=== PATIENT | female | born 1925 | race Caucasian/White ===

== ENCOUNTER 2016-07-09 10:59 | Emergency (ER) | payer OTHER ==
--- NOTE | 2016-07-09 11:16 | PDOC ---
*Physical Exam - Physical Exam Comments: 07/09/16 11:16 MIDLEVEL NOTE Pt seen by Midlevel Provider under my direct supervision. Pt interviewed and examined. Ancillary studies reviewed. I agree with plan as outlined by Midlevel Provider. 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 Patient has no abdominal tenderness Case discussed with Dr. Branch of results and states will also notify Dr. Shultz *DC/Admit/Observation/Transfer Diagnosis at time of Disposition: Fall Qualifiers: Encounter type: initial encounter Qualified Code(s): W19.XXXA - Unspecified fall, initial encounter - Discharge Dispostion Disposition: HOME Condition at time of disposition: Good - Referrals Referrals: Corby Shultz MD [Primary Care Provider] - - Patient Instructions Printed Discharge Instructions: How to Prevent Falls Additional Instructions: X-rays were negative for acute findings including fractures but on the CT there is mention of thickened wall mass in the sigmoid region needs follow-up.
[2016-07-09 11:23] VITALS: TEMP 97; BMI 19.5
--- NOTE | 2016-07-09 12:38 | PDOC ---
History of Present Illness - General Chief Complaint: Injury Stated Complaint: R/O HIP FRACTURE Time Seen by Provider: 07/09/16 11:08 History Source: Patient, [facility] Records Exam Limitations: No Limitations - History of Present Illness Initial Comments: 07/09/16 11:30 89-year-old female presents to the ED for evaluation of possible right hip fracture. Patient states yesterday was walking when she had tripped causing her to land on her left side. Patient had bilateral hip x-rays done which could not exclude of right hip fracture and recommended either a CT or additional imaging. Patient has no complaints of pain except to her left ankle and has been ambulatory since. Patient is currently on Lovenox. Occurred: reports: yesterday Severity: reports: mild Pain Location: reports: lower extremity Method of Injury: Yes: fall Modifying Factors: improves with: None Loss of Consciousness: no loss of consciousness Associated Symptoms (Fall): denies symptoms Past History - Past Medical History Allergies/Adverse Reactions: Allergies Allergy/AdvReac Type Severity Reaction Status Date / Time aspirin Allergy Verified 07/09/16 11:23 Home Medications: Ambulatory Orders Aa/Hydrolyzed Collagen, Whey [Lps 15-30 Liquid] 960 ml PO DAILY 07/09/16 Acetaminophen [Tylenol] 650 mg PO QID 07/09/16 Ascorbate Calcium [Vitamin C] 500 mg PO DAILY 07/09/16 Atorvastatin Ca [Lipitor] 40 mg PO HS 07/09/16 Atropine 1% Ophth. Solution - 0 drop OU BID 07/09/16 Collagenase Clostridium Hist. [Santyl] 1 applic TP DAILY 07/09/16 Docusate Sodium 100 mg PO BID 07/09/16 Donepezil HCl [Aricept] 10 mg PO DAILY 07/09/16 Enoxaparin [Lovenox -] 30 mg SQ DAILY 07/09/16 Escitalopram Oxalate [Lexapro -] 10 mg PO DAILY 07/09/16 Ferrous Sulfate/Vit C/FA [Folitab 500 Caplet] 1 each PO DAILY 07/09/16 Lactobacillus Acidophilus [Bacid -] 1 each PO DAILY 07/09/16 Latanoprost 0.005% Eye Drops [Xalatan 0.005% Eye Drops -] 1 drop HS 07/09/16 Metoprolol Succinate [Toprol Xl] 100 mg PO DAILY 07/09/16 Multivitamin [Poly-Vitamin] 1 each PO DAILY 07/09/16 Nystatin 100,000 unit PO TID 07/09/16 Oxycodone HCl 5 mg PO QID 07/09/16 Quetiapine Fumarate [Seroquel -] 25 mg PO HS 07/09/16 Cancer: Yes (bladder) Cardiac Disorders: Yes (A-fib, CAD) Dementia: Yes HTN: Yes Hypercholesterolemia: Yes - Surgical History Cardiac Surgery: Yes (CABG x 3) - Immunization History Td Vaccination: No Immunization Up to Date: No - Psycho/Social/Smoking Cessation Hx Anxiety: No Suicidal Ideation: No Smoking Status: No Smoking History: Former smoker Have you smoked in the past 12 months: No Number of Cigarettes Smoked Daily: 0 If you are a former smoker, when did you quit?: 2007 Information on smoking cessation initiated: No Hx Alcohol Use: No Drug/Substance Use Hx: No Substance Use Type: None Hx Substance Use Treatment: No Patient Lives Alone: No Lives with/in: [facility] Review of Systems - Review of Systems Able to Perform ROS?: Yes Constitutional: No: Symptoms Reported HEENTM: No: Symptoms Reported Respiratory: No: Symptoms reported Cardiac (ROS): No: Symptoms Reported ABD/GI: No: Symptoms Reported : No: Symptoms Reported Musculoskeletal: Yes: Joint Pain (left ankle left hip). No: Back Pain, Joint Swelling, Muscle Pain, Neck Pain, Joint Stiffness Integumentary: No: Symptoms Reported, Bruising, Erythema, Lumps Neurological: No: Weakness Endocrine: No: Symptoms Reported *Physical Exam - Vital Signs Last Vital Signs Temp Pulse Resp BP Pulse Ox 97 F L 60 18 105/68 97 07/09/16 11:21 07/09/16 11:21 07/09/16 11:21 07/09/16 11:21 07/09/16 11:21 - Physical Exam General Appearance: Yes: Nourished, Appropriately Dressed. No: Apparent Distress HEENT: positive: EOMI, SAMARIA. negative: Pale Conjunctivae Neck: positive: Supple. negative: Tender, Decreased range of motion Respiratory/Chest: positive: Lungs Clear, Normal Breath Sounds. negative: Chest Tender, Respiratory Distress, Accessory Muscle Use Cardiovascular: positive: Regular Rhythm, Regular Rate. negative: Murmur Vascular Pulses: Dorsalis-Pedis (R): 2+, Doralis-Pedis (L): 2+ Gastrointestinal/Abdominal: positive: Soft. negative: Tenderness Musculoskeletal: negative: CVA Tenderness, Vertebral Tenderness Extremity: positive: Normal Capillary Refill, Normal Inspection, Normal Range of Motion, Tender (over left lateral mallelous and distal fibula. Pt also tender to left hip/proximal femoral ). negative: Pedal Edema, Swelling, Calf Tenderness, Erythema Integumentary: positive: Normal Color, Warm, Moist. negative: Swelling Neurologic: positive: Motor Strength 5/5 (able to perform straight leg raise independently bilaterally) ED Treatment Course - RADIOLOGY Radiology Studies Ordered: Category Date Time Status LOWER EXTREMITY CT W/O CONTR [CT] Stat CT Scan 07/09/16 11:46 Ordered ANKLE & FOOT-LEFT* [RAD] Stat Radiology 07/09/16 11:39 Ordered HIP & PELVIS-LEFT [RAD] Stat Radiology 07/09/16 11:39 Ordered LEG TIB/FIB-LEFT [RAD] Stat Radiology 07/09/16 11:39 Ordered Medical Decision Making - Medical Decision Making 07/09/16 12:41 Pt s/p mechanical fall yesterday and had xrays of bilateral hips and was inclusive of right hip fracture. patient was tender to the left lateral malleolus and left proximal femur. Patient also added for left foot and ankle and left hip x-ray including a right hip CT 07/09/16 14:40 CT of the right hip shows no fracture dislocation acute bone or joint abnormalities. There is a thickened wall mass in the sigmoid region neck and represent an abscess versus inflammation. Patient will be sent back to [facility] with results so that this may be followed up. X-rays negative for acute findings. Patient resting comfortably with no complaints. Will send back to [facility]. message left for Dr. Shultz in regards to the findings with my callback number. will attempt to call again. 07/09/16 15:[address] Branch of results and states will also notify Dr. Shultz 07/09/16 18:47 Dr. Shultz called back and made aware of CT findings and will follow up. *DC/Admit/Observation/Transfer Diagnosis at time of Disposition: Fall Qualifiers: Encounter type: initial encounter Qualified Code(s): W19.XXXA - Unspecified fall, initial encounter - Discharge Dispostion Disposition: [facility] Condition at time of disposition: Good - Referrals Referrals: Corby Shultz MD [Primary Care Provider] - - Patient Instructions Printed Discharge Instructions: How to Prevent Falls Additional Instructions: X-rays were negative for acute findings including fractures but on the CT there is mention of thickened wall mass in the sigmoid region needs follow-up.
[2016-07-09 17:15] VITALS: BP 108/67; PULSE 65
== END 2016-07-09 17:16 ==
LOC: JER 10:59
DX: M25.552 Pain in left hip (principal); W18.39XA Other fall on same level, initial encounter; Y93.89 Activity, other specified; Y92.128 Other place in nursing home as the place of occurrence of the external cause; I25.10 Atherosclerotic heart disease of native coronary artery without angina pectoris; Z95.1 Presence of aortocoronary bypass graft; I48.91 Unspecified atrial fibrillation; Z79.01 Long term (current) use of anticoagulants; E78.00 Pure hypercholesterolemia, unspecified; Z85.51 Personal history of malignant neoplasm of bladder
CPT/HCPCS: 73523-TC; 73590-TC-LT; 73610-TC-LT; 73630-TC-LT; 73700-TC-RT; 99283-25

== ENCOUNTER 2017-01-15 13:33 | Inpatient (IN) | payer OTHER ==
--- NOTE | 2017-01-15 14:02 | PDOC ---
History of Present Illness - General Chief Complaint: Altered Mental Status Stated Complaint: AMS/HYPOTENSION Time Seen by Provider: 01/15/17 13:46 History Source: EMS Exam Limitations: Dementia - History of Present Illness Initial Comments: This is an 89 yo female with h/o dementia, schizophrenia, bipolar disorder (on VPA), endometrial and bladder CA, A-fib (takes enoxaparin), HTN, HLD, COPD (on 2 -3 LPM prn baseline), dysphagia, anemia, hip fracture and repair (Apr 2016), and repeated GLF who presents BIBA for apparent LOC at her care facility [facility]. She was reportedly in the dining room sitting at a table when she slumped forward and lost consciousness. Staff at the facility measured her pulse oxygenation to be 98% on non-rebreather, and her temperature to be 99.0 after finding her. EMS notes that the patient was unconscious on their arrival on scene, and remained so en route to the ED. Their field EKG was unremarkable, and they found her to have soft blood pressures. The patient presents with an information packet from her care facility indicating she is FULL CODE. Past History - Past Medical History Allergies/Adverse Reactions: Allergies Allergy/AdvReac Type Severity Reaction Status Date / Time aspirin Allergy Verified 01/15/17 14:26 Home Medications: Ambulatory Orders Aa/Hydrolyzed Collagen, Whey [Lps 15-30 Liquid] 960 ml PO DAILY 07/09/16 Acetaminophen [Tylenol] 650 mg PO QID 07/09/16 Ascorbate Calcium [Vitamin C] 500 mg PO DAILY 07/09/16 Atorvastatin Ca [Lipitor] 40 mg PO HS 07/09/16 Atropine 1% Ophth. Solution - 0 drop OU BID 07/09/16 Collagenase Clostridium Hist. [Santyl] 1 applic TP DAILY 07/09/16 Docusate Sodium 100 mg PO BID 07/09/16 Donepezil HCl [Aricept] 10 mg PO DAILY 07/09/16 Enoxaparin [Lovenox -] 30 mg SQ DAILY 07/09/16 Escitalopram Oxalate [Lexapro -] 20 mg PO DAILY 07/09/16 Ferrous Sulfate/Vit C/FA [Folitab 500 Caplet] 1 each PO DAILY 07/09/16 Lactobacillus Acidophilus [Bacid -] 1 each PO DAILY 07/09/16 Latanoprost 0.005% Eye Drops [Xalatan 0.005% Eye Drops -] 1 drop HS 07/09/16 Metoprolol Succinate [Toprol Xl] 100 mg PO DAILY 07/09/16 Multivitamin [Poly-Vitamin] 1 each PO DAILY 07/09/16 Nystatin 100,000 unit PO TID 07/09/16 Oxycodone HCl 5 mg PO QID 07/09/16 Quetiapine Fumarate [Seroquel -] 25 mg PO HS 07/09/16 Cancer: Yes (bladder) Cardiac Disorders: Yes (A-fib, CAD) Dementia: Yes HTN: Yes Hypercholesterolemia: Yes - Surgical History Cardiac Surgery: Yes (CABG x 3) - Immunization History Td Vaccination: No Immunization Up to Date: No - Psycho/Social/Smoking Cessation Hx Anxiety: No Suicidal Ideation: No Smoking Status: No Smoking History: Former smoker Have you smoked in the past 12 months: No Number of Cigarettes Smoked Daily: 0 If you are a former smoker, when did you quit?: 2007 Hx Alcohol Use: No Drug/Substance Use Hx: No Substance Use Type: None Hx Substance Use Treatment: No Review of Systems - Review of Systems Able to Perform ROS?: No (dementia) *Physical Exam - Physical Exam General Appearance: Yes: Mild Distress, Thin, Other (mildly agitated but following some commands) HEENT: positive: Normal Voice, Other (upper dentures in, right iris coloboma, left iris is pinpoint). negative: Scleral Icterus (R), Scleral Icterus (L), TM Bulging, TM Dull, TM Erythema Neck: positive: Trachea midline. negative: Decreased range of motion, Rigidity , Tender lateral, Tender midline Respiratory/Chest: positive: Decreased Breath Sounds, Other (midline sternotomy scar). negative: Chest Tender, Respiratory Distress Cardiovascular: positive: Regular Rhythm, Regular Rate Gastrointestinal/Abdominal: positive: Normal Bowel Sounds, Flat, Soft, Other ( liver edge palpable about 2 cm below right costal margin). negative: Tender Musculoskeletal: positive: Normal Inspection. negative: Decreased Range of Motion Extremity: positive: Normal Inspection, Normal Range of Motion, Pelvis Stable. negative: Tender, Pedal Edema, Swelling Integumentary: positive: Dry, Warm, Pale Neurologic: positive: Alert, Disoriented (unable to state the month, year, location, situation), Other (moving all four extremities). negative: Fully Oriented Heart Score/ECG Review - History History: Slightly suspicious - Electrocardiogram EKG: Normal - Age Age: >/= 65 - Risk Factors Risk Factors Heart Score: Yes Hx Hypercholesterolemia, Yes Hx Hypertension Based on the list above the patient has:: 1-2 risk factors - Troponin Troponin: </= normal limit - Score Heart Score - Total: 3 #1 ECG reviewed & interpreted by me at: 14:14 Sinus rhythm, rate of 61, with left axis deviation, with low voltage in the limb leads, ST depression in V4. ED Treatment Course - LABORATORY CBC & Chemistry Diagram: 01/15/17 14:30 01/15/17 14:30 - RADIOLOGY Radiology Studies Ordered: Category Date Time Status HEAD CT WITHOUT CONTRAST [CT] Stat CT Scan 01/15/17 13:51 Ordered CHEST X-RAY PORTABLE* [RAD] Stat Radiology 01/15/17 13:47 Ordered Radiograph Interpretation: EXAM#: TYPE/EXAM: RESULT: [id number] CT/HEAD CT WITHOUT CONTRAST History. loc. CT scan of the brain C-. Findings. Serial axial images of the brain were obtained from foramen magnum to the cranial vertex without intravenous contrast. The study was supplemented with computer-generated coronal sagittal reconstruction images. Comparison study CT brain July 13, 2015. CSF spaces unchanged from prior examination. Loss of volume of brain parenchyma with involutional changes. No evidence of hydrocephalus, acute subarachnoid hemorrhage, acute intra-axial or extra-axial fluid collection consistent with subdural or epidural hematoma. Nonhemorrhagic infarct of indeterminate age measuring chaka. 11 mm x 2.6 mm is noted left anterior limb of internal capsule. 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 Normal intracranial physiological calcifications are observed. Intracranial vascular calcifications are noted The visualized paranasal sinuses and mastoid air cells are clear. Impression. No evidence of acute intracranial hemorrhage. Nonhemorrhagic infarct of indeterminate age measuring chaka. 11 mm x 2.6 mm is noted left anterior limb of internal capsule. Chronic right temporal/occipital infarct is noted. Reported By: Jeffery Castro MD 01/15/17 1516 EXAM#: TYPE/EXAM: RESULT: [id number] RAD/CHEST X-RAY PORTABLE* Sepsis. Single portable chest x-ray. Comparison study April 19, 2016. Status post cardiothoracic surgery. No evidence of cardiomegaly. The lungs are well aerated. No evidence of vascular congestion, pleural effusion, pneumothorax or pulmonary consolidations. Intact visualized osseous structures. EKG leads are noted. Impression. No evidence of active pulmonary disease Reported By: Jeffery Castro MD 01/15/17 1423 Medical Decision Making - Medical Decision Making 89 yo female with dementia, A-fib, COPD on home O2 p/w LOC at her care facility. Mildly agitated but alert here in the ED, VS wnl, RRR, exam without tenderness. DDX seizure vs. syncope, concern for infectious etiology, ACS, arrhythmia, ICH or other brain lesion. Ordered is adult sepsis protocol, troponin, Mg, Phos, UA cx, Head CT WO contrast. Larwill syncope rule with risk factors SOB and SBP<90 as reported by EMS. Pt noted to be anemic with Hgb 9.7 but no leukocytosis. UA notable for nitrites and leukocyte esterase. Ceftriaxone 1 gm IV is ordered and given. Dr. Branch graciously admits the patient to Tele Obs. *DC/Admit/Observation/Transfer Diagnosis at time of Disposition: Syncope Qualifiers: Syncope type: unspecified Qualified Code(s): R55 - Syncope and collapse UTI (urinary tract infection) Qualifiers: Urinary tract infection type: acute cystitis Hematuria presence: without hematuria Qualified Code(s): N30.00 - Acute cystitis without hematuria - Discharge Dispostion Condition at time of disposition: Guarded Admit: Yes - Attestations Physician Attestion: 01/15/17 16:01 I, Dr. Alexandra Negrete, attest that this document has been prepared under my direction and personally reviewed by me in its entirety. I further attest, that it accurately reflects all work, treatment, procedures and medical decision -making performed by me.
--- NOTE | 2017-01-15 14:17 | PDOC ---
Attending Attestation - Resident Resident Name: Alexandra Negrete - ED Attending Attestation I have performed the following: I have examined & evaluated the patient, The case was reviewed & discussed with the resident, I agree w/resident's findings & plan, Exceptions are as noted - HPI HPI: 01/15/17 14:15 89-year-old female with history of dementia, bipolar disorder, endometrial bladder cancer, atrial fibrillation, hypertension, hyperlipidemia, COPD, anemia presents with unresponsiveness. Patient is from long-term [facility] (Pt's doctor is Dr. Corby Shultz). [facility] at activated EMS as patient was found slumped and unresponsive. They found her hypotensive to 70 systolic. EMS established IV access and given her 600 mL of normal saline which assisted with her mental status. Repeat blood pressure was 120s systolic. Patient is demented but insists that she has no pain and feels otherwise well. Denies chest pain or shortness of breath. However, patient does not remember being unconscious. - Physicial Exam PE: 01/15/17 14:16 GENERAL: Awake, alert. AAOx1 to self. in no acute distress. HEAD: No signs of trauma EYES: PERRLA, EOMI, sclera anicteric, conjunctiva clear ENT: Auricles normal inspection, hearing grossly normal, nares patent, oropharynx clear without exudates. NECK: Normal ROM, supple, no lymphadenopathy, JVD, or masses LUNGS: Breath sounds equal, clear to auscultation bilaterally. No wheezes, and no crackles HEART: Irregular rate and rhythm, normal S1 and S2, no murmurs, rubs or gallops ABDOMEN: Soft, nontender, normoactive bowel sounds. No guarding, no rebound. No masses EXTREMITIES: Normal range of motion, no edema. No clubbing or cyanosis. No cords, erythema, or tenderness NEUROLOGICAL: Cranial nerves II through XII grossly intact. Normal speech, normal gait SKIN: Warm, Dry, normal turgor, no rashes or lesions noted. - Medical Decision Making 01/15/17 14:16 Patient at this time appears unremarkable other than dry mucous membranes. However, given unreliable history and multiple medical problems, we'll need to rule out metabolic, infectious, cardiac, neurologic etiologies. Agree with the resident's evaluation with head CT, chest x-ray, EKG, labs, urinalysis and admission to the hospital for the very minimum of observation. Heart Score/ECG Review #1 ECG reviewed & interpreted by me at: 14:15 01/15/17 15:03 NSR 61, left axis deviation, no std/shadia, QTC 422 msec.
[2017-01-15] MEDS: SODIUM CHLORIDE 1,000 ML IV SCH (14:22)
[2017-01-15 14:29] LABS: VENOUS PH 7.33 (7.32-7.42)
[2017-01-15 14:30] VITALS: BMI 24.7
[2017-01-15 14:31] LABS: VENOUS BLOOD GAS HCO3 29.2 meq/L (19-25)
[2017-01-15 14:35] LABS: BASOPHIL 0.7 % (0-2.0); EOSINOPHIL 3.6 % (0-4.5); MCH 29.1 pg (25.7-33.7); MEAN CELL VOLUME 88.1 fl (80-96); MEAN PLT VOLUME 8.2 fl (7.5-11.1); NEUTROPHILS 69.8 % (42.8-82.8); PLATELET COUNT 169 K/MM3 (134-434); RDW 15.2 % (11.6-15.6); WHITE BLOOD COUNT 4.6 K/mm3 (4.0-10.0)
[2017-01-15 15:00] LABS: ANION GAP 9 (8-16); BILIRUBIN,TOTAL 0.3 mg/dL (0.2-1.0); CO2 27 mmol/L (21-32); CREATININE 0.8 mg/dL (0.55-1.02); GLUCOSE,RANDOM 109 mg/dL (74-106); SGPT/ALT 15 U/L (12-78); TOT PROT 5.8 g/dl (6.4-8.2)
[2017-01-15 15:01] LABS: PHOSPHOROUS 4.3 mg/dL (2.5-4.9)
[2017-01-15 15:02] LABS: ALK PHOS 90 U/L (45-117); CPK 54 IU/L (26-192); TROPONIN I < 0.02 ng/ml (0.00-0.05)
[2017-01-15 15:03] LABS: TROPONIN I < 0.02 ng/ml (0.00-0.05)
[2017-01-15 15:04] LABS: SGOT/AST 27 U/L (15-37)
[2017-01-15 15:05] LABS: MAGNESIUM 1.9 mg/dL (1.8-2.4)
[2017-01-15 15:36] LABS: INR 1.12 (0.82-1.09); PROTHROMBIN TIME (PATIENT) 12.4 SEC (9.98-11.88)
[2017-01-15 15:39] LABS: ACTIVATED PTT 33.1 SECONDS (26.9-34.4)
[2017-01-15] MEDS ORDERED: ACETAMINOPHEN 325 MG TABLET (FP) PO PRN (16:14)
--- NOTE | 2017-01-15 16:26 | HP ---
Admitting History and Physical - Primary Care Physician PCP: Corby Shultz - Admission Chief Complaint: I feel fine History of Present Illness: Ms Blount is an 89 year old female who comes in from [facility] with syncope. Per medical records, she was sitting eating lunch and became unresponsive. Attempts at arousal were unsuccessful and her blood pressure was checked and her SBP was found to be in the 60's. EMS was called and an IV was established, she received 600mL NS and her mental status improved. Her blood pressure also improved as well. Currently she says she is feeling fine and has no problems. She says she was sent over here for tests, she did not know why. She denied fevers, passing out, and chest pain. After this she would not answer any further questions and instead started yelling that she felt fine. When told that she passed out at the SNF she said the people there were lying. 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 Cardiovascular: Yes: AFIB ((no lngwer on coumadin)), CAD, HTN, Hyperlipdemia Gastrointestinal: Yes: GI Bleed, Other (colon polyps) Renal/: Yes: Cancer (bladder tumor) Heme/Onc: Yes: Anemia Psych: Yes: Anxiety, Depression - Past Surgical History Past Surgical History: Yes: Nephrectomy, CABG - Smoking History Smoking history: Former smoker Have you smoked in the past 12 months: No Aproximately how many cigarettes per day: 0 If you are a former smoker, when did you quit?: 2007 - Alcohol/Substance Use Hx Alcohol Use: No History of Substance Use: reports: None - Social History Usual Living Arrangement: Yes: Senior Living ADL: Support Services History of Recent Travel: No Home Medications - Allergies Allergies/Adverse Reactions: Allergies Allergy/AdvReac Type Severity Reaction Status Date / Time aspirin Allergy Verified 01/15/17 14:26 - Home Medications Home Medications: Ambulatory Orders Aa/Hydrolyzed Collagen, Whey [Lps 15-30 Liquid] 960 ml PO DAILY 07/09/16 Acetaminophen [Tylenol] 650 mg PO QID 07/09/16 Ascorbate Calcium [Vitamin C] 500 mg PO DAILY 07/09/16 Atorvastatin Ca [Lipitor] 40 mg PO HS 07/09/16 Atropine 1% Ophth. Solution - 0 drop OU BID 07/09/16 Collagenase Clostridium Hist. [Santyl] 1 applic TP DAILY 07/09/16 Docusate Sodium 100 mg PO BID 07/09/16 Donepezil HCl [Aricept] 10 mg PO DAILY 07/09/16 Enoxaparin [Lovenox -] 30 mg SQ DAILY 07/09/16 Escitalopram Oxalate [Lexapro -] 20 mg PO DAILY 07/09/16 Ferrous Sulfate/Vit C/FA [Folitab 500 Caplet] 1 each PO DAILY 07/09/16 Lactobacillus Acidophilus [Bacid -] 1 each PO DAILY 07/09/16 Latanoprost 0.005% Eye Drops [Xalatan 0.005% Eye Drops -] 1 drop HS 07/09/16 Metoprolol Succinate [Toprol Xl] 100 mg PO DAILY 07/09/16 Multivitamin [Poly-Vitamin] 1 each PO DAILY 07/09/16 Nystatin 100,000 unit PO TID 07/09/16 Oxycodone HCl 5 mg PO QID 07/09/16 Quetiapine Fumarate [Seroquel -] 25 mg PO HS 07/09/16 Family Disease History - Family Disease History Family Disease History: Heart Disease: Mother Review of Systems Findings/Remarks: unable to obtain full review of systems secondary to dementia Physical Examination Vital Signs: Vital Signs Temperature 36.3 C L 01/15/17 13:52 Pulse Rate 57 L 01/15/17 15:46 Respiratory Rate 16 01/15/17 15:46 Blood Pressure 89/46 01/15/17 15:46 O2 Sat by Pulse Oximetry (%) 95 01/15/17 15:46 Constitutional: Yes: Well Nourished, No Distress, Calm Eyes: Yes: Conjunctiva Clear, PERRL Cardiovascular: Yes: Regular Rate and Rhythm. No: Gallop, Murmur, Rub Respiratory: Yes: Regular, CTA Bilaterally. No: Rales, Rhonchi, Wheezes Gastrointestinal: Yes: Normal Bowel Sounds, Soft. No: Distention, Tenderness Extremities: Yes: WNL Edema: No Labs: CBC, BMP 01/15/17 14:30 01/15/17 14:30 Imaging - Results Chest X-ray: Report Reviewed, Image Reviewed Cat Scan: Report Reviewed EKG: Image Reviewed Problem List - Problems (1) Syncope Assessment/Plan: -patient had episode of syncope with hypotension -unclear if happened before/during/after meal, very likely vasovagal syncopal event -admit under observation -hydrate with IVF -orthostatic vital signs -cardiology and neurology consult -ECHO -carotid ultrasound -fall risk precautions -PT consult Code(s): R55 - SYNCOPE AND COLLAPSE Qualifiers: Syncope type: unspecified Qualified Code(s): R55 - Syncope and collapse (2) CVA (cerebral vascular accident) Assessment/Plan: -patient with old CVA and one of indeterminate age -very low suspicion above caused by acute CVA -will check lipid profile -PT -neurology consult Code(s): I63.9 - CEREBRAL INFARCTION, UNSPECIFIED (3) Afib Assessment/Plan: -currently sounds in sinus rhythm -not on full anticoagulation as an outpatient, suspect secondary to high risk for falls -continue metoprolol -cardiology consulted -telemetry since with syncope Code(s): I48.91 - UNSPECIFIED ATRIAL FIBRILLATION Qualifiers: Atrial fibrillation type: paroxysmal Qualified Code(s): I48.0 - Paroxysmal atrial fibrillation (4) CAD (coronary artery disease) Assessment/Plan: -no complaints of chest pain -continue home regimen Code(s): I25.10 - ATHSCL HEART DISEASE OF [place] CORONARY ARTERY W/O ANG PCTRS Qualifiers: (5) Dementia Assessment/Plan: -continue seroquel Code(s): F03.90 - UNSPECIFIED DEMENTIA WITHOUT BEHAVIORAL DISTURBANCE (6) Hyperlipidemia Assessment/Plan: -continue statin Code(s): E78.5 - HYPERLIPIDEMIA, UNSPECIFIED Qualifiers: (7) Hypertension Assessment/Plan: -hypotensive -hydrate with IVF -toprol xl with hold parameters Code(s): I10 - ESSENTIAL (PRIMARY) HYPERTENSION
[2017-01-15 16:34] LABS: URINE APPEARANCE SLCLOUDY; URINE BILIRUBIN NEGATIVE (NEGATIVE); URINE BLOOD NEGATIVE (NEGATIVE); URINE COLOR YELLOW; URINE GLUCOSE (UA) NEGATIVE (NEGATIVE); URINE KETONE NEGATIVE (NEGATIVE); URINE NITRITE POSITIVE (NEGATIVE); URINE PROTEIN NEGATIVE (NEGATIVE); URINE UROBILINOGEN NEGATIVE mg/dL (0.2-1.0)
[2017-01-15 16:40] LABS: URINE LEUK ESTERASE 3+ (NEGATIVE)
[2017-01-15 17:20] LABS: URINE BACTERIA RARE /hpf (NONE SEEN); URINE MUCUS RARE; URINE RBC 2 /hpf (0-3); URINE WBC 59 /hpf (3-5); YEAST RARE
[2017-01-15] MEDS ORDERED: CEFTRIAXONE 1 GM in DEXTROSE 5%-WATER - 50 ML IVPB ONE (17:31)
[2017-01-15] MEDS ORDERED: CEFTRIAXONE 50 ML ONE (18:27)
[2017-01-15] MEDS: ATORVASTATIN CA 40 MG TABLET (FP) PO SCH (23:18)
[2017-01-15] MEDS: QUEtiapine FUMARATE 25 MG TABLET (FP) PO SCH (23:18)
[2017-01-15] MEDS: DOCUSATE SODIUM 100 MG CAPSULE (FP) PO SCH (23:18)
[2017-01-16] MEDS: LATANOPROST 0.005% OPHTH SOLN 2.5ML BOTTLE OU SCH ×2 (01:30→21:35)
[2017-01-16] MEDS: ATROPINE SO4 1% OPHTH SOLN 5 ML BOTTLE OU SCH ×3 (05:32→21:36)
[2017-01-16 07:38] LABS: ANION GAP 7 (8-16); CALCIUM 8.2 mg/dL (8.5-10.1); CO2 28 mmol/L (21-32); CREATININE 0.6 mg/dL (0.55-1.02); GLUCOSE,RANDOM 86 mg/dL (74-106); MAGNESIUM 1.7 mg/dL (1.8-2.4); PHOSPHOROUS 3.1 mg/dL (2.5-4.9)
[2017-01-16 07:39] LABS: BASOPHIL 0.7 % (0-2.0); EOSINOPHIL 2.6 % (0-4.5); MCH 28.8 pg (25.7-33.7); MCHC 32.7 g/dl (32.0-36.0); MEAN CELL VOLUME 88.1 fl (80-96); MEAN PLT VOLUME 7.9 fl (7.5-11.1); NEUTROPHILS 80.6 % (42.8-82.8); PLATELET COUNT 185 K/MM3 (134-434); RDW 14.9 % (11.6-15.6); WHITE BLOOD COUNT 6.2 K/mm3 (4.0-10.0)
[2017-01-16] MEDS: SODIUM CHLORIDE 1,000 ML IV SCH ×2 (08:52→13:23)
[2017-01-16 09:42] LABS: CHOLESTEROL 120 mg/dL (50-200); LDL CHOLESTEROL (ONLY SJRH) 65 mg/dL (5-100)
[2017-01-16] MEDS ORDERED: METOPROLOL SUCCINATE 100 MG TAB.SR.24H (FP) PO SCH (10:00)
[2017-01-16] MEDS ORDERED: COLLAGENASE CLOSTRIDIUM HIST. 30 GRAMS TUBE TP SCH (10:00)
[2017-01-16] MEDS ORDERED: PATIENT'S OWN MEDICATION (NON-FORMULARY) (Aa/Hydrolyzed Collagen, Whey [Lps 15-30 Liquid] PO SCH (10:00)
--- NOTE | 2017-01-16 10:28 | PN ---
Progress Note (short form) - Note Progress Note: Chief Complaint: Events noted, noted reviewed. Witnessed syncope probably neuro- cardiogenic syncope, vasodepressor vs. cardio-inhibitory, denies any chest pain or dyspnea History of Present Illness: Seen and examined on telemetry. Full consult dictated Echocardiography performed 07/30/15 revealed normal LV size and function, AV sclerosis, MAC, moderate MR, AI and mild TR - Current Medication List Current Medications Acetaminophen (Tylenol -) 650 mg PO Q4H PRN PRN Reason: FEVER OR PAIN Ascorbic Acid (Vitamin C -) 500 mg PO DAILY [facility] [place] Atorvastatin Calcium (Lipitor -) 40 mg PO HS [facility] Last Admin: 01/15/17 23:18 Dose: 40 mg Atropine Sulfate (Atropine 1% Ophth. Solution -) 1 drop OU BID [facility] Last Admin: 01/16/17 05:32 Dose: Not Given Collagenase (Santyl -) 1 applic TP DAILY [facility] [place] Docusate Sodium (Colace -) 100 mg PO BID [facility] [place] Last Admin: 01/15/17 23:18 Dose: 100 mg Donepezil HCl (Aricept -) 10 mg PO DAILY [facility] [place] Enoxaparin Sodium (Lovenox -) 30 mg SQ DAILY [facility] Escitalopram Oxalate (Lexapro -) 20 mg PO DAILY [facility] [place] Folic Acid/Iron (Folitab 500 Caplet -) 1 each PO DAILY [facility] Sodium Chloride (Normal Saline -) 1,000 mls @ 125 mls/hr IV ASDIR [facility] [place] Last Admin: 01/16/17 08:52 Dose: 125 mls/hr Lactobacillus Acidophilus (Bacid -) 1 tab PO DAILY [facility] [place] Latanoprost (Xalatan 0.005% Eye Drops -) 1 drop OU HS [facility] [place] Last Admin: 01/16/17 01:30 Dose: 1 drop Metoprolol Succinate (Toprol Xl -) 100 mg PO DAILY [facility] Multivitamins/Minerals/Vitamin C (Tab-A-Vit -) 1 tab PO DAILY [facility] Non-Formulary Medication (Aa/Hydrolyzed Collagen, Whey [Lps 15-30 Liquid]) 960 ml PO DAILY [facility] [place] Quetiapine Fumarate (Seroquel -) 25 mg PO HS [facility] Last Admin: 01/15/17 23:18 Dose: 25 mg Review of Systems - Review of Systems Constitutional: no symptoms reported Respiratory: denies: Dyspnea or Cough Cardiovascular: As noted above Gastrointestinal: denies Nausea, Vomiting, Diarrhea, Constipation or Abdominal Pain Genitourinary: No symptoms reported Musculoskeletal: No symptoms reported Endocrine: No symptoms reported - Objective Vital Signs: Last Vital Signs Temp Pulse Resp BP Pulse Ox 97.8 F 64 20 137/72 97 01/16/17 09:06 01/16/17 09:06 01/16/17 09:06 01/16/17 09:06 01/15/17 22:30 Intake & Output 01/13/17 01/14/17 01/15/17 01/16/17 23:59 23:59 23:59 23:59 Intake Total 720 Output Total 300 Balance -300 720 Weight 140 lb Constitutional: No Distress, Calm, Thin Neck: Supple Negative JVD Respiratory: Diminished Breath Sounds at the Bases Cardiovascular: S1 S2 Regular Rate and Rhythm Gastrointestinal: Soft Benign Normal Bowel Sounds Ext: No Edema Labs: CBC, BMP 01/16/17 05:35 01/16/17 05:35 INR, PTT INR 1.12 (0.82-1.09) 01/15/17 14:30 Assessment/Plan ASSESSMENT: 1. Syncope probably neuro-cardiogenic syncope, vasodepressor vs. cardio- inhibitory, unlikely to be vaso-vagal 2. CAD post CABG angina pectoris, stable 3. 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 Paroxysmal atrial fibrillation [id number] score of 6 currently in sinus rhythm not on A/C therapy high risk A/C patient (history of dementia, fall risk and history of GI bleed) 5. HTN 6. Hyperlipidemia 7. Organic brain syndrome/Dementia 8. CKD 9. History of fall with left femoral neck fracture post ORIF PLAN: 1. Continue Toprol XL 2. Continue Lipitor 3. Ideally patient should on A/C therapy considering the above noted history of paroxysmal atrial fibrillation with [id number] score of 6 unless it is absolutely contraindicated, add Plavix since is ASA allergic for now 4. Avoid vasodilators 5. Echocardiography to evaluate LV size and function Francois Cohen M.D.
[2017-01-16] MEDS ORDERED: PT OWN MED DRAWER 7, Y5N ONE ×3 (10:35→21:30)
[2017-01-16] MEDS: DONEPEZIL HCL 10 MG TABLET (FP) PO SCH (10:39)
[2017-01-16] MEDS: METOPROLOL SUCCINATE 100 MG TAB.SR.24H (FP) PO SCH (10:39)
[2017-01-16] MEDS: ENOXAPARIN NA (PORCINE) 30 MG/0.3 ML DISP.SYRIN SQ SCH (10:39)
[2017-01-16] MEDS: MULTIVITAMINS (DAILY MVI) TABLET (FP) PO SCH (10:39)
[2017-01-16] MEDS: ASCORBIC ACID 500 MG TABLET (FP) PO SCH (10:39)
[2017-01-16] MEDS: ESCITALOPRAM OXALATE 20 MG TABLET (FP) PO SCH (10:39)
[2017-01-16] MEDS: DOCUSATE SODIUM 100 MG CAPSULE (FP) PO SCH ×2 (10:39→21:35)
[2017-01-16] MEDS: LACTOBACILLUS ACIDOPHILUS 1 EACH TAB (FP) PO SCH (10:39)
--- NOTE | 2017-01-16 11:45 | CONS ---
DATE OF CONSULTATION: 01/16/2017 REQUESTED BY: Andre Branch MD; Alan Mosley MD CHIEF COMPLAINT: Evaluation of a syncopal episode. HISTORY OF PRESENT ILLNESS: An 89-year-old female known to our service with known history of coronary artery disease, status post coronary artery bypass grafting, angina pectoris, diastolic left ventricular dysfunction with chronic class I [place] [employer] classification congestive heart failure, paroxysmal atrial fibrillation, CHADS2-VASc score of 6, currently on no anticoagulation therapy, hypertensive cardiovascular disease, hypercholesterolemia, advanced organic brain syndrome/dementia, chronic kidney disease, post fall, post fracture, left femoral neck, post open reduction and internal fixation, resident of an extended-care facility who was witnessed by the staff to have a syncopal episode with associated hypotension. EMS was contacted and subsequently intravenous fluid was given with improvement in the above-noted clinical presentation. As noted above, patient has advanced organic brain syndrome, dementia, and she does not have any recollection of the above event. Currently, patient is resting comfortably in bed. Denies any chest discomfort. Patient denies any dyspnea, orthopnea, paroxysmal nocturnal dyspnea, or peripheral edema. Patient denies any palpitation, dizziness, lightheadedness, or syncope. PAST MEDICAL HISTORY: Coronary artery disease, status post coronary artery bypass grafting, angina pectoris, diastolic left ventricular dysfunction with chronic class I [place] [employer] classification left ventricular congestive heart failure, paroxysmal atrial fibrillation, CHADS-VASc score of 6, currently on no anticoagulation therapy, high-risk anticoagulation patient, hypertensive cardiovascular disease, hypercholesterolemia, organic brain syndrome/dementia, chronic kidney disease, post fall, fracture, left femoral neck, post open reduction and internal fixation. SOCIAL HISTORY: A resident of an extended-care facility. FAMILY HISTORY: Positive coronary artery disease. ALLERGIES: Questionable allergy to ASPIRIN. MEDICAL THERAPY: Currently includes Tylenol 650 mg every 4 hours as needed, vitamin C 500 mg once a day, Lipitor 40 mg once a day, Colace 100 mg twice a day, Aricept 10 mg once a day, Lovenox 30 mg subcutaneously once a day, Lexapro 20 mg once a day, folic acid 1 tablet once a day, Bacid 1 tablet once a day, Toprol XL 100 mg once a day, multivitamin 1 tablet once a day, Seroquel 25 mg once a day, eyedrops including atropine sulfate and Xalatan as prescribed. REVIEW OF SYSTEMS:Head and Neck: Denies headache, photophobia, blurring of vision. Respiratory: No cough or sputum production. Cardiovascular: As noted above. Gastrointestinal: Denies nausea, vomiting, diarrhea, abdominal discomfort. Genitourinary: No symptoms reported. Musculoskeletal: No symptoms reported. PHYSICAL EXAMINATION:Vital Signs: Blood pressure is 137/72 mmHg, pulse rate is 64 beats per minute. Head and Neck: Pupils equal, reactive to light and accommodation. Extraocular muscles intact. Anicteric sclerae. Negative JVD. No bruit appreciated. Chest: Clear to auscultation and percussion. Cardiovascular: S1, S2 regular. Grade 1 to 2/6 systolic ejection murmur. No clicks or gallop. Abdomen: Soft, benign. Normoactive bowel sounds. Extremities: Negative edema, 1+ distal pulses, no calf tenderness. DIAGNOSTIC DATA: Electrocardiogram reveals sinus rhythm with left axis deviation, right-sided conduction delay with nonspecific ST-segment abnormality. Chest x-ray report was noted. Carotid Doppler study revealed no evidence of high-grade carotid artery disease. CBC revealed a white cell count 6.2, hemoglobin 11.1, platelet count 185. INR 1.12. Basic metabolic profile revealed sodium 140, potassium 4.0, BUN is 16, creatinine 0.6, glucose 86, cholesterol 120, LDL 65, HDL 42, triglyceride 94, with normal liver profile. ASSESSMENT: 1. Syncope, probably neurocardiogenic syncope, vasodepressor versus cardioinhibitory syncope, unlikely to be vasovagal. 2. Coronary artery disease, post coronary artery bypass grafting, angina pectoris, stable. 3. Diastolic left ventricular dysfunction with chronic class I [place] [employer] classification left ventricular congestive heart failure, compensated/euvolemic. 4. Paroxysmal atrial fibrillation, CHADS2-VASc score of 6, currently in sinus rhythm, on no anticoagulation therapy, high-risk anticoagulation patient. 5. Hypertensive cardiovascular disease. 6. Hypercholesterolemia. 7. Organic brain syndrome/dementia. 8. Chronic kidney disease. 9. History of fall with left femoral neck fracture, post open reduction and internal fixation. RECOMMENDATIONS: 1. Continuation of Toprol XL therapy. 2. Continuation of Lipitor therapy. 3. Ideally, patient should be anticoagulated considering the above-noted history of paroxysmal atrial fibrillation with CHADS-VASc score of 6 unless it is absolutely contraindicated. Addition of Plavix since patient is ASPIRIN allergic for now. 4. Avoidance of vasodilator therapy and diuretic therapy. 5. Echocardiography for evaluation of left ventricular size and function. Thank you for your kind referral. JOSE TAYLOR M.D. [id number]
--- NOTE | 2017-01-16 12:09 | PN ---
Progress Note (short form) - Note Progress Note: Patient seen and examined. Awake but confused. At baseline. Denies chest pain, shortness of breath, palpitation or dizziness. Afebrile. 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 Cardiovascular: Yes: AFIB ((no lngwer on coumadin)), CAD, HTN, Hyperlipdemia Gastrointestinal: Yes: GI Bleed, Other (colon polyps) Renal/: Yes: Cancer (bladder tumor) Heme/Onc: Yes: Anemia Psych: Yes: Anxiety, Depression - Past Surgical History Past Surgical History: Yes: Nephrectomy, CABG - Smoking History Smoking history: Former smoker Have you smoked in the past 12 months: No Aproximately how many cigarettes per day: 0 If you are a former smoker, when did you quit?: 2007 - Alcohol/Substance Use Hx Alcohol Use: No History of Substance Use: reports: None - Social History Usual Living Arrangement: Yes: Longterm ADL: Support Services History of Recent Travel: No Home Medications - Allergies Allergies/Adverse Reactions: Allergies Allergy/AdvReac Type Severity Reaction Status Date / Time aspirin Allergy Verified 01/15/17 14:26 - Home Medications Home Medications: Ambulatory Orders Aa/Hydrolyzed Collagen, Whey [Lps 15-30 Liquid] 960 ml PO DAILY 07/09/16 Acetaminophen [Tylenol] 650 mg PO QID 07/09/16 Ascorbate Calcium [Vitamin C] 500 mg PO DAILY 07/09/16 Atorvastatin Ca [Lipitor] 40 mg PO HS 07/09/16 Atropine 1% Ophth. Solution - 0 drop OU BID 07/09/16 Collagenase Clostridium Hist. [Santyl] 1 applic TP DAILY 07/09/16 Docusate Sodium 100 mg PO BID 07/09/16 Donepezil HCl [Aricept] 10 mg PO DAILY 07/09/16 Enoxaparin [Lovenox -] 30 mg SQ DAILY 07/09/16 Escitalopram Oxalate [Lexapro -] 20 mg PO DAILY 07/09/16 Ferrous Sulfate/Vit C/FA [Folitab 500 Caplet] 1 each PO DAILY 07/09/16 Lactobacillus Acidophilus [Bacid -] 1 each PO DAILY 07/09/16 Latanoprost 0.005% Eye Drops [Xalatan 0.005% Eye Drops -] 1 drop HS 07/09/16 Metoprolol Succinate [Toprol Xl] 100 mg PO DAILY 07/09/16 Multivitamin [Poly-Vitamin] 1 each PO DAILY 07/09/16 Nystatin 100,000 unit PO TID 07/09/16 Oxycodone HCl 5 mg PO QID 07/09/16 Quetiapine Fumarate [Seroquel -] 25 mg PO HS 07/09/16 Family Disease History - Family Disease History Family Disease History: Heart Disease: Mother Review of Systems Findings/Remarks: unable to obtain full review of systems secondary to dementia Physical Examination Vital Signs: Vital Signs Period Temp Pulse Resp BP Sys/Weiss Pulse Ox Last 24 Hr 97.1 F-97.8 F 57-85 16-20 89-158/45-75 95-98 Constitutional: Yes: Well Nourished, No Distress, Calm Eyes: Yes: Conjunctiva Clear, PERRL Cardiovascular: Yes: Regular Rate and Rhythm. No: Gallop, Murmur, Rub Respiratory: Yes: Regular, CTA Bilaterally. No: Rales, Rhonchi, Wheezes Gastrointestinal: Yes: Normal Bowel Sounds, Soft. No: Distention, Tenderness Extremities: Yes: WNL Edema: No Labs: CBC, BMP 01/16/17 05:35 01/16/17 05:35 Imaging - Results Chest X-ray: Report Reviewed, Image Reviewed Cat Scan: Report Reviewed EKG: Image Reviewed Problem List - Problems (1) Syncope Assessment/Plan: -patient had episode of syncope with hypotension -unclear if happened before/during/after meal, very likely vasovagal syncopal event -Continue IV hydration -orthostatic vital signs -cardiology cosult appreciated. -Neurology consult awaited. -ECHO -carotid ultrasound -fall risk precautions -PT consult Code(s): R55 - SYNCOPE AND COLLAPSE Qualifiers: Syncope type: unspecified Qualified Code(s): R55 - Syncope and collapse (2) CVA (cerebral vascular accident) Assessment/Plan: -patient with old CVA and one of indeterminate age -very low suspicion above caused by acute CVA -will check lipid profile -PT -neurology consult Code(s): I63.9 - CEREBRAL INFARCTION, UNSPECIFIED (3) Afib Assessment/Plan: -currently sounds in sinus rhythm -not on full anticoagulation as an outpatient, suspect secondary to high risk for falls -continue metoprolol -cardiology consulted -telemetry since with syncope Code(s): I48.91 - UNSPECIFIED ATRIAL FIBRILLATION Qualifiers: Atrial fibrillation type: paroxysmal Qualified Code(s): I48.0 - Paroxysmal atrial fibrillation (4) CAD (coronary artery disease) Assessment/Plan: -no complaints of chest pain -continue home regimen Code(s): I25.10 - ATHSCL HEART DISEASE OF [place] CORONARY ARTERY W/O ANG PCTRS Qualifiers: (5) Dementia Assessment/Plan: -continue seroquel Code(s): F03.90 - UNSPECIFIED DEMENTIA WITHOUT BEHAVIORAL DISTURBANCE (6) Hyperlipidemia Assessment/Plan: -continue statin Code(s): E78.5 - HYPERLIPIDEMIA, UNSPECIFIED Qualifiers: (7) Hypertension Assessment/Plan: -Admitted with hypotenion -toprol xl with hold parameters Code(s): I10 - ESSENTIAL (PRIMARY) HYPERTENSION
--- NOTE | 2017-01-16 13:13 | CON.NEURO ---
Consult - History of Present Illness History of Present Illness: episode of syncope HPI 89 year old female admitted for becoming unresponsive,while having lunch.Patient blood pressure was found to be in 60s. There is no history of seizures or history of high grade fever or headache. Patient was given iv fluid. ct head is normal. and her carotid ultrasound is normal. She has history of dementia, HTN, Hyperlipidemia, CAD, Bladdercancer.Schizophrenia, , depression , anxiety and CABG. 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 Cardio/Vascular: Yes: AFIB ((no lngwer on coumadin)), CAD, HTN, Hyperlipdemia Gastrointestinal: Yes: GI Bleed, Other (colon polyps) Renal/: Yes: Cancer (bladder tumor) Psych: Yes: Anxiety, Depression - Past Surgical History Past Surgical History: Yes: Nephrectomy, CABG - Alcohol/Substance Use Hx Alcohol Use: No History of Substance Use: reports: None - Smoking History Smoking history: Former smoker Have you smoked in the past 12 months: No Aproximately how many cigarettes per day: 0 If you are a former smoker, when did you quit?: 2007 - Social History Usual Living Arrangement: Alone ADL: Support Services History of Recent Travel: No Home Medications - Allergies Allergies/Adverse Reactions: Allergies Allergy/AdvReac Type Severity Reaction Status Date / Time aspirin Allergy Verified 01/15/17 14:26 - Home Medications Home Medications: Ambulatory Orders Aa/Hydrolyzed Collagen, Whey [Lps 15-30 Liquid] 960 ml PO DAILY 07/09/16 Acetaminophen [Tylenol] 650 mg PO QID 07/09/16 Ascorbate Calcium [Vitamin C] 500 mg PO DAILY 07/09/16 Atorvastatin Ca [Lipitor] 40 mg PO HS 07/09/16 Atropine 1% Ophth. Solution - 0 drop OU BID 07/09/16 Collagenase Clostridium Hist. [Santyl] 1 applic TP DAILY 07/09/16 Docusate Sodium 100 mg PO BID 07/09/16 Donepezil HCl [Aricept] 10 mg PO DAILY 07/09/16 Enoxaparin [Lovenox -] 30 mg SQ DAILY 07/09/16 Escitalopram Oxalate [Lexapro -] 20 mg PO DAILY 07/09/16 Ferrous Sulfate/Vit C/FA [Folitab 500 Caplet] 1 each PO DAILY 07/09/16 Lactobacillus Acidophilus [Bacid -] 1 each PO DAILY 07/09/16 Latanoprost 0.005% Eye Drops [Xalatan 0.005% Eye Drops -] 1 drop HS 07/09/16 Metoprolol Succinate [Toprol Xl] 100 mg PO DAILY 07/09/16 Multivitamin [Poly-Vitamin] 1 each PO DAILY 07/09/16 Nystatin 100,000 unit PO TID 07/09/16 Oxycodone HCl 5 mg PO QID 07/09/16 Quetiapine Fumarate [Seroquel -] 25 mg PO HS 07/09/16 Family Disease History - Family Disease History Family Disease History: Heart Disease: Mother Physical Exam-Neuro Vital Signs: Vital Signs Temperature 97.8 F 01/16/17 09:06 Pulse Rate 64 01/16/17 09:06 Respiratory Rate 20 01/16/17 09:06 Blood Pressure 137/72 01/16/17 09:06 O2 Sat by Pulse Oximetry (%) 97 01/15/17 22:30 Labs: CBC, BMP 01/16/17 05:35 01/16/17 05:35 INR, PTT INR 1.12 (0.82-1.09) 01/15/17 14:30 Imaging - Results Cat Scan: Report Reviewed Assessment/Plan cc episode of syncope HPI 89 year old female admitted for becoming unresponsive,while having lunch.Patient blood pressure was found to be in 60s. There is no history of seizures or history of high grade fever or headache. Patient was given iv fluid. ct head is normal. and her carotid ultrasound is normal. She has history of dementia, HTN, Hyperlipidemia, CAD, Bladdercancer.Schizophrenia, , depression , anxiety and CABG. Medication ,ROS- reviewed in chart Home Medications Aa/Hydrolyzed Collagen, Whey [Lps 15-30 Liquid] 960 ml PO DAILY 07/09/16 Acetaminophen [Tylenol] 650 mg PO QID 07/09/16 Ascorbate Calcium [Vitamin C] 500 mg PO DAILY 07/09/16 Atorvastatin Ca [Lipitor] 40 mg PO HS 07/09/16 Atropine 1% Ophth. Solution - 0 drop OU BID 07/09/16 Collagenase Clostridium Hist. [Santyl] 1 applic TP DAILY 07/09/16 Docusate Sodium 100 mg PO BID 07/09/16 Donepezil HCl [Aricept] 10 mg PO DAILY 07/09/16 Enoxaparin [Lovenox -] 30 mg SQ DAILY 07/09/16 Escitalopram Oxalate [Lexapro -] 20 mg PO DAILY 07/09/16 Ferrous Sulfate/Vit C/FA [Folitab 500 Caplet] 1 each PO DAILY 07/09/16 Lactobacillus Acidophilus [Bacid -] 1 each PO DAILY 07/09/16 Latanoprost 0.005% Eye Drops [Xalatan 0.005% Eye Drops -] 1 drop HS 07/09/16 Metoprolol Succinate [Toprol Xl] 100 mg PO DAILY 07/09/16 Multivitamin [Poly-Vitamin] 1 each PO DAILY 07/09/16 Nystatin 100,000 unit PO TID 07/09/16 Oxycodone HCl 5 mg PO QID 07/09/16 Quetiapine Fumarate [Seroquel -] 25 mg PO HS 07/09/16 Neurological Examination Alert oriented x 1 ,she says, today is wednesday and december , could not tell year , she says she is in long term she told her name right and she told her age 87 vss, afebrile opens eye spontaneously and track objects no face asymmetry, pupils reactive moving all extremity, no nygstatmus seen CT head and carotid ultrasound unremarkable Assessment/Plan- Agree with primary team, most likely Syncope. Current work up ( ct head and carotid ultrasound ) is enough , no need for mri of brain or eeg at this time - clinically suspician for seizures or meningitis is low continue supportive care would see her prn thank you so much for referral. Bay Hadley MD
[2017-01-16] MEDS: CLOPIDOGREL BISULFATE 75 MG TABLET (FP) PO SCH (13:24)
[2017-01-16] MEDS: FERROUS SO4/VIT C/FA 1 EACH TABLET.ER PO SCH (13:24)
--- NOTE | 2017-01-16 13:30 | EKG ---
Test Reason : Blood Pressure : / mmHG Vent. Rate : 061 BPM Atrial Rate : 061 BPM P-R Int : 156 ms QRS Dur : 094 ms QT Int : 420 ms P-R-T Axes : 071 -63 015 degrees QTc Int : 422 ms NORMAL SINUS RHYTHM LEFT AXIS DEVIATION LOW VOLTAGE QRS INFERIOR-POSTERIOR INFARCT , AGE UNDETERMINED ABNORMAL ECG WHEN COMPARED WITH ECG OF 23-APR-2016 09:16, NONSPECIFIC T WAVE ABNORMALITY NOW EVIDENT IN LATERAL LEADS CLINICAL CORRELATION IS RECOMMENDED Confirmed by JOSE TAYLOR MD ([id number]) on 01/16/2017 1:29:54 PM Referred By: Confirmed By:JOSE TAYLOR MD
[2017-01-16] MEDS: QUEtiapine FUMARATE 25 MG TABLET (FP) PO SCH (21:35)
[2017-01-16] MEDS: ATORVASTATIN CA 40 MG TABLET (FP) PO SCH (21:35)
[2017-01-17] MEDS: SODIUM CHLORIDE 1,000 ML IV SCH (06:45)
[2017-01-17] MEDS ORDERED: PT OWN MED DRAWER 7, Y5N ONE ×3 (10:59→21:22)
[2017-01-17] MEDS: DONEPEZIL HCL 10 MG TABLET (FP) PO SCH (11:14)
[2017-01-17] MEDS: FERROUS SO4/VIT C/FA 1 EACH TABLET.ER PO SCH (11:15)
[2017-01-17] MEDS: DOCUSATE SODIUM 100 MG CAPSULE (FP) PO SCH ×2 (11:15→21:24)
[2017-01-17] MEDS: ATROPINE SO4 1% OPHTH SOLN 5 ML BOTTLE OU SCH ×2 (11:15→21:26)
[2017-01-17] MEDS: LACTOBACILLUS ACIDOPHILUS 1 EACH TAB (FP) PO SCH (11:15)
[2017-01-17] MEDS: MULTIVITAMINS (DAILY MVI) TABLET (FP) PO SCH (11:16)
[2017-01-17] MEDS: ENOXAPARIN NA (PORCINE) 30 MG/0.3 ML DISP.SYRIN SQ SCH (11:16)
[2017-01-17] MEDS: ASCORBIC ACID 500 MG TABLET (FP) PO SCH (11:16)
[2017-01-17] MEDS: METOPROLOL SUCCINATE 100 MG TAB.SR.24H (FP) PO SCH (11:16)
[2017-01-17] MEDS: ESCITALOPRAM OXALATE 20 MG TABLET (FP) PO SCH (11:16)
[2017-01-17] MEDS: CLOPIDOGREL BISULFATE 75 MG TABLET (FP) PO SCH (11:16)
--- NOTE | 2017-01-17 11:22 | PN ---
Progress Note (short form) - Note Progress Note: Chief Complaint: Events noted, noted reviewed. No further syncope reported, denies any chest pain or dyspnea, rectal bleed reported, confused and disoriented History of Present Illness: Seen and examined on telemetry. Events noted, noted reviewed. No further syncope reported, denies any chest pain or dyspnea, rectal bleed reported, confused and disoriented Echocardiography performed 07/30/15 revealed normal LV size and function, AV sclerosis, MAC, moderate MR, AI and mild TR - Current Medication List Current Medications Acetaminophen (Tylenol -) 650 mg PO Q4H PRN PRN Reason: FEVER OR PAIN Ascorbic Acid (Vitamin C -) 500 mg PO DAILY [facility] Last Admin: 01/16/17 10:39 Dose: 500 mg Atorvastatin Calcium (Lipitor -) 40 mg PO HS [facility] Last Admin: 01/16/17 21:35 Dose: 40 mg Atropine Sulfate (Atropine 1% Ophth. Solution -) 1 drop OU BID [facility] Last Admin: 01/16/17 21:36 Dose: 1 drop Clopidogrel Bisulfate (Plavix -) 75 mg PO DAILY [facility] Last Admin: 01/16/17 13:24 Dose: 75 mg Docusate Sodium (Colace -) 100 mg PO BID [facility] Last Admin: 01/16/17 21:35 Dose: 100 mg Donepezil HCl (Aricept -) 10 mg PO DAILY [facility] Last Admin: 01/16/17 10:39 Dose: 10 mg Enoxaparin Sodium (Lovenox -) 30 mg SQ DAILY [facility] Last Admin: 01/16/17 10:39 Dose: 30 mg Escitalopram Oxalate (Lexapro -) 20 mg PO DAILY [facility] Last Admin: 01/16/17 10:39 Dose: 20 mg Folic Acid/Iron (Folitab 500 Caplet -) 1 each PO DAILY [facility] Last Admin: 01/16/17 13:24 Dose: 1 each Sodium Chloride (Normal Saline -) 1,000 mls @ 60 mls/hr IV ASDIR [facility] Last Admin: 01/17/17 06:45 Dose: 60 mls/hr Lactobacillus Acidophilus (Bacid -) 1 tab PO DAILY [facility] Last Admin: 01/16/17 10:39 Dose: 1 tab Latanoprost (Xalatan 0.005% Eye Drops -) 1 drop OU HS [facility] Last Admin: 01/16/17 21:35 Dose: 1 drop Metoprolol Succinate (Toprol Xl -) 100 mg PO DAILY [facility] Last Admin: 01/16/17 10:39 Dose: 100 mg Multivitamins/Minerals/Vitamin C (Tab-A-Vit -) 1 tab PO DAILY [facility] Last Admin: 01/16/17 10:39 Dose: 1 tab Non-Formulary Medication (Aa/Hydrolyzed Collagen, Whey [Lps 15-30 Liquid]) 960 ml PO DAILY [facility] Quetiapine Fumarate (Seroquel -) 25 mg PO HS [facility] Last Admin: 01/16/17 21:35 Dose: 25 mg Review of Systems - Review of Systems Constitutional: no symptoms reported Respiratory: denies: Dyspnea or Cough Cardiovascular: As noted above Gastrointestinal: denies Nausea, Vomiting, Diarrhea, Constipation or Abdominal Pain Genitourinary: No symptoms reported Musculoskeletal: No symptoms reported Endocrine: No symptoms reported - Objective Vital Signs: Last Vital Signs Temp Pulse Resp BP Pulse Ox 97 F L 62 20 154/72 97 01/17/17 10:00 01/17/17 10:00 01/17/17 10:00 01/17/17 10:00 01/16/17 20:29 Intake & Output 01/14/17 01/15/17 01/16/17 01/17/17 23:59 23:59 23:59 23:59 Intake Total 1070 800 Output Total 300 Balance -300 1070 800 Weight 140 lb Constitutional: No Distress, Calm, Thin Neck: Supple Negative JVD Respiratory: Diminished Breath Sounds at the Bases Cardiovascular: S1 S2 Regular Rate and Rhythm Gastrointestinal: Soft Benign Normal Bowel Sounds Ext: No Edema Labs: CBC, BMP 01/16/17 05:35 01/16/17 05:35 INR, PTT INR 1.12 (0.82-1.09) 01/15/17 14:30 Assessment/Plan ASSESSMENT: 1. Syncope probably neuro-cardiogenic syncope, vasodepressor vs. cardio- inhibitory, unlikely to be vaso-vagal 2. CAD post CABG angina pectoris, stable 3. 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 Paroxysmal atrial fibrillation [id number] score of 6 currently in sinus rhythm not on A/C therapy high risk A/C patient (history of dementia, fall risk and history of GI bleed) 5. HTN 6. Hyperlipidemia 7. Organic brain syndrome/Dementia 8. Rectal bleed 9. CKD 10. History of fall with left femoral neck fracture post ORIF PLAN: 1. Continue Toprol XL 2. Continue Lipitor 3. Ideally patient should on A/C therapy considering the above noted history of paroxysmal atrial fibrillation with [id number] score of 6 unless it is absolutely contraindicated, recommend D/C Plavix in view of the above noted rectal bleed 4. Avoid vasodilators 5. Evaluation of rectal bleed 6. Echocardiography to evaluate LV size and function Francois Cohen M.D.
--- NOTE | 2017-01-17 12:52 | PN ---
Progress Note (short form) - Note Progress Note: Patient seen and examined. Nurse reports small per rectal bleeding Noted while changing diaper. Only one time. No associated nausea, vomiting, abdominal pain. Awake but confused. At baseline. Denies chest pain, shortness of breath, palpitation or dizziness. Afebrile. 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 Cardiovascular: Yes: AFIB ((no lngwer on coumadin)), CAD, HTN, Hyperlipdemia Gastrointestinal: Yes: GI Bleed, Other (colon polyps) Renal/: Yes: Cancer (bladder tumor) Heme/Onc: Yes: Anemia Psych: Yes: Anxiety, Depression - Past Surgical History Past Surgical History: Yes: Nephrectomy, CABG - Smoking History Smoking history: Former smoker Have you smoked in the past 12 months: No Aproximately how many cigarettes per day: 0 If you are a former smoker, when did you quit?: 2007 - Alcohol/Substance Use Hx Alcohol Use: No History of Substance Use: reports: None - Social History Usual Living Arrangement: Yes: Fdc ADL: Support Services History of Recent Travel: No Home Medications - Allergies Allergies/Adverse Reactions: Allergies Allergy/AdvReac Type Severity Reaction Status Date / Time aspirin Allergy Verified 01/15/17 14:26 - Home Medications Home Medications: Ambulatory Orders Aa/Hydrolyzed Collagen, Whey [Lps 15-30 Liquid] 960 ml PO DAILY 07/09/16 Acetaminophen [Tylenol] 650 mg PO QID 07/09/16 Ascorbate Calcium [Vitamin C] 500 mg PO DAILY 07/09/16 Atorvastatin Ca [Lipitor] 40 mg PO HS 07/09/16 Atropine 1% Ophth. Solution - 0 drop OU BID 07/09/16 Collagenase Clostridium Hist. [Santyl] 1 applic TP DAILY 07/09/16 Docusate Sodium 100 mg PO BID 07/09/16 Donepezil HCl [Aricept] 10 mg PO DAILY 07/09/16 Enoxaparin [Lovenox -] 30 mg SQ DAILY 07/09/16 Escitalopram Oxalate [Lexapro -] 20 mg PO DAILY 07/09/16 Ferrous Sulfate/Vit C/FA [Folitab 500 Caplet] 1 each PO DAILY 07/09/16 Lactobacillus Acidophilus [Bacid -] 1 each PO DAILY 07/09/16 Latanoprost 0.005% Eye Drops [Xalatan 0.005% Eye Drops -] 1 drop HS 07/09/16 Metoprolol Succinate [Toprol Xl] 100 mg PO DAILY 07/09/16 Multivitamin [Poly-Vitamin] 1 each PO DAILY 07/09/16 Nystatin 100,000 unit PO TID 07/09/16 Oxycodone HCl 5 mg PO QID 07/09/16 Quetiapine Fumarate [Seroquel -] 25 mg PO HS 07/09/16 Family Disease History - Family Disease History Family Disease History: Heart Disease: Mother Review of Systems Findings/Remarks: unable to obtain full review of systems secondary to dementia Physical Examination Vital Signs: Vital Signs Period Temp Pulse Resp BP Sys/Weiss Pulse Ox Last 24 Hr 97 F-98.6 F 52-72 20-20 117-159/49-72 97 Constitutional: Yes: Well Nourished, No Distress, Calm Eyes: Yes: Conjunctiva Clear, PERRL Cardiovascular: Yes: Regular Rate and Rhythm. No: Gallop, Murmur, Rub Respiratory: Yes: Regular, CTA Bilaterally. No: Rales, Rhonchi, Wheezes Gastrointestinal: Yes: Normal Bowel Sounds, Soft. No: Distention, Tenderness Extremities: Yes: WNL Edema: No Labs: CBC, BMP 01/16/17 05:35 01/16/17 05:35 Imaging - Results Chest X-ray: Report Reviewed, Image Reviewed Cat Scan: Report Reviewed EKG: Image Reviewed Problem List - Problems (1) Syncope Assessment/Plan: -Patient had episode of syncope with hypotension -Orthostatic vital signs -Cardiology and neurology consult appreciated. -ECHO -carotid ultrasound -Fall risk precautions -PT consult Code(s): R55 - SYNCOPE AND COLLAPSE Qualifiers: Syncope type: unspecified Qualified Code(s): R55 - Syncope and collapse (2) CVA (cerebral vascular accident) Assessment/Plan: -patient with old CVA and one of indeterminate age -very low suspicion above caused by acute CVA -will check lipid profile -PT -neurology consult appreciated. Code(s): I63.9 - CEREBRAL INFARCTION, UNSPECIFIED (3) Afib Assessment/Plan: -currently sounds in sinus rhythm -not on full anticoagulation as an outpatient, suspect secondary to high risk for falls -continue metoprolol -cardiology follow up appreciated. -telemetry since with syncope Code(s): I48.91 - UNSPECIFIED ATRIAL FIBRILLATION Qualifiers: Atrial fibrillation type: paroxysmal Qualified Code(s): I48.0 - Paroxysmal atrial fibrillation (4) CAD (coronary artery disease) Assessment/Plan: -no complaints of chest pain -continue home regimen Code(s): I25.10 - ATHSCL HEART DISEASE OF [place] CORONARY ARTERY W/O ANG PCTRS Qualifiers: (5) Dementia Assessment/Plan: -continue seroquel Code(s): F03.90 - UNSPECIFIED DEMENTIA WITHOUT BEHAVIORAL DISTURBANCE (6) Hyperlipidemia Assessment/Plan: -continue statin Code(s): E78.5 - HYPERLIPIDEMIA, UNSPECIFIED Qualifiers: (7) Hypertension Assessment/Plan: -Admitted with hypotension -Continue toprol xl with hold parameters Code(s): I10 - ESSENTIAL (PRIMARY) HYPERTENSION
--- NOTE | 2017-01-17 13:22 | CONSULT ---
Consult Consult Specialty:: infectious diseases Reason for Consultation:: uti - History of Present Illness History of Present Illness: 89 year old female who comes in from [facility] with syncope. Per medical records, she was sitting eating lunch and became unresponsive. Attempts at arousal were unsuccessful and her blood pressure was checked and her SBP was found to be in the 60's. patient was hydrated and her mental status improved. Her blood pressure also improved as well. 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 Cardio/Vascular: Yes: AFIB ((no lngwer on coumadin)), CAD, HTN, Hyperlipdemia Gastrointestinal: Yes: GI Bleed, Other (colon polyps) Renal/: Yes: Cancer (bladder tumor) Psych: Yes: Anxiety, Depression - Past Surgical History Past Surgical History: Yes: Nephrectomy, CABG - Alcohol/Substance Use Hx Alcohol Use: No History of Substance Use: reports: None - Smoking History Smoking history: Former smoker Have you smoked in the past 12 months: No Aproximately how many cigarettes per day: 0 If you are a former smoker, when did you quit?: 2007 - Social History Usual Living Arrangement: Alone ADL: Support Services History of Recent Travel: No Home Medications - Allergies Allergies/Adverse Reactions: Allergies Allergy/AdvReac Type Severity Reaction Status Date / Time aspirin Allergy Verified 01/15/17 14:26 - Home Medications Home Medications: Ambulatory Orders Aa/Hydrolyzed Collagen, Whey [Lps 15-30 Liquid] 960 ml PO DAILY 07/09/16 Acetaminophen [Tylenol] 650 mg PO QID 07/09/16 Ascorbate Calcium [Vitamin C] 500 mg PO DAILY 07/09/16 Atorvastatin Ca [Lipitor] 40 mg PO HS 07/09/16 Atropine 1% Ophth. Solution - 0 drop OU BID 07/09/16 Collagenase Clostridium Hist. [Santyl] 1 applic TP DAILY 07/09/16 Docusate Sodium 100 mg PO BID 07/09/16 Donepezil HCl [Aricept] 10 mg PO DAILY 07/09/16 Enoxaparin [Lovenox -] 30 mg SQ DAILY 07/09/16 Escitalopram Oxalate [Lexapro -] 20 mg PO DAILY 07/09/16 Ferrous Sulfate/Vit C/FA [Folitab 500 Caplet] 1 each PO DAILY 07/09/16 Lactobacillus Acidophilus [Bacid -] 1 each PO DAILY 07/09/16 Latanoprost 0.005% Eye Drops [Xalatan 0.005% Eye Drops -] 1 drop HS 07/09/16 Metoprolol Succinate [Toprol Xl] 100 mg PO DAILY 07/09/16 Multivitamin [Poly-Vitamin] 1 each PO DAILY 07/09/16 Nystatin 100,000 unit PO TID 07/09/16 Oxycodone HCl 5 mg PO QID 07/09/16 Quetiapine Fumarate [Seroquel -] 25 mg PO HS 07/09/16 Family Disease History - Family Disease History Family Disease History: Heart Disease: Mother Review of Systems - Review of Systems Constitutional: reports: No Symptoms Eyes: reports: No Symptoms HENT: reports: No Symptoms Neck: reports: No Symptoms Cardiovascular: reports: No Symptoms Respiratory: reports: No Symptoms Gastrointestinal: reports: No Symptoms Genitourinary: reports: No Symptoms Neurological: reports: Confusion Endocrine: reports: No Symptoms Hematology/Lymphatic: reports: No Symptoms Psychiatric: reports: No Symptoms Physical Exam Vital Signs: Vital Signs Temperature 97 F L 01/17/17 10:00 Pulse Rate 62 01/17/17 10:00 Respiratory Rate 20 01/17/17 10:00 Blood Pressure 154/72 01/17/17 10:00 O2 Sat by Pulse Oximetry (%) 97 01/16/17 20:29 Constitutional: Yes: No Distress, Calm Neck: Yes: Supple Cardiovascular: Yes: Regular Rate and Rhythm Respiratory: Yes: Regular, CTA Bilaterally Gastrointestinal: Yes: Normal Bowel Sounds, Soft Musculoskeletal: Yes: WNL Extremities: Yes: WNL Neurological: Yes: Alert, Other Psychiatric: Yes: Alert Labs: CBC, BMP 01/16/17 05:35 01/16/17 05:35 Imaging - Results Chest X-ray: Report Reviewed, Image Reviewed Cat Scan: Report Reviewed, Image Reviewed Assessment/Plan Problem List - Problems (1) Syncope Code(s): R55 - SYNCOPE AND COLLAPSE Qualifiers: Syncope type: unspecified Qualified Code(s): R55 - Syncope and collapse (2) CVA (cerebral vascular accident) Code(s): I63.9 - CEREBRAL INFARCTION, UNSPECIFIED (3) Afib Code(s): I48.91 - UNSPECIFIED ATRIAL FIBRILLATION Qualifiers: Atrial fibrillation type: paroxysmal Qualified Code(s): I48.0 - Paroxysmal atrial fibrillation (4) CAD (coronary artery disease) Code(s): I25.10 - ATHSCL HEART DISEASE OF [place] CORONARY ARTERY W/O ANG PCTRS Qualifiers: (5) Dementia Code(s): F03.90 - UNSPECIFIED DEMENTIA WITHOUT BEHAVIORAL DISTURBANCE (6) Hyperlipidemia Code(s): E78.5 - HYPERLIPIDEMIA, UNSPECIFIED Qualifiers: (7) Hypertension Code(s): I10 - ESSENTIAL (PRIMARY) HYPERTENSION 8 uti plan will start the patient on ceftriaxone hydration rest as per primary team close watch on her
[2017-01-17] MEDS: CEFTRIAXONE 50 ML IVPB SCH (15:19)
[2017-01-17] MEDS: QUEtiapine FUMARATE 25 MG TABLET (FP) PO SCH (21:24)
[2017-01-17] MEDS: ATORVASTATIN CA 40 MG TABLET (FP) PO SCH (21:24)
[2017-01-17] MEDS: LATANOPROST 0.005% OPHTH SOLN 2.5ML BOTTLE OU SCH (21:26)
--- NOTE | 2017-01-18 06:39 | HOSP ---
Subjective - Review of Symptoms Events since last encounter: Pt was witnessed by policy writer typist to be confused and combative. She is at increased risk for injury to herself and increased risk of falling. She is disrupting therapy for herself and others. Restraint vest and full side rails ordered for pt safety. Physical Examination Vital Signs: Vital Signs Temperature 98.1 F 01/18/17 02:00 Pulse Rate 75 01/18/17 02:00 Respiratory Rate 18 01/18/17 02:00 Blood Pressure 116/72 01/18/17 02:00 O2 Sat by Pulse Oximetry (%) 98 01/17/17 21:00 Labs: CBC, BMP 01/16/17 05:35 01/16/17 05:35 Visit type - Emergency Visit Emergency Visit: Yes ED Registration Date: 01/15/17 Care time: The patient presented to the Emergency Department on the above date and was hospitalized for further evaluation of their emergent condition. - New Patient This patient is new to me today: Yes Date on this admission: 01/18/17 - Critical Care Critical Care patient: No
[2017-01-18 07:43] LABS: BASOPHIL 1.2 % (0-2.0); EOSINOPHIL 3.7 % (0-4.5); MCH 28.5 pg (25.7-33.7); MCHC 32.4 g/dl (32.0-36.0); MEAN CELL VOLUME 88.1 fl (80-96); MEAN PLT VOLUME 7.8 fl (7.5-11.1); NEUTROPHILS 72.5 % (42.8-82.8); PLATELET COUNT 178 K/MM3 (134-434); RDW 14.6 % (11.6-15.6); WHITE BLOOD COUNT 6.6 K/mm3 (4.0-10.0)
--- NOTE | 2017-01-18 07:52 | PN ---
Progress Note (short form) - Note Progress Note: Chief Complaint: Events noted, noted reviewed. No further syncope reported, denies any chest pain or dyspnea, remains confused and disoriented and occasionally agitated History of Present Illness: Seen and examined on telemetry. Events noted, noted reviewed. No further syncope reported, denies any chest pain or dyspnea, remains confused and disoriented and occasionally agitated Echocardiography performed 07/30/15 revealed normal LV size and function, AV sclerosis, MAC, moderate MR, AI and mild TR - Current Medication List Current Medications Acetaminophen (Tylenol -) 650 mg PO Q4H PRN PRN Reason: FEVER OR PAIN Ascorbic Acid (Vitamin C -) 500 mg PO DAILY [facility] Last Admin: 01/17/17 11:16 Dose: 500 mg Atorvastatin Calcium (Lipitor -) 40 mg PO HS [facility] Last Admin: 01/17/17 21:24 Dose: 40 mg Atropine Sulfate (Atropine 1% Ophth. Solution -) 1 drop OU BID [facility] Last Admin: 01/17/17 21:26 Dose: 1 drop Clopidogrel Bisulfate (Plavix -) 75 mg PO DAILY [facility] Last Admin: 01/17/17 11:16 Dose: 75 mg Docusate Sodium (Colace -) 100 mg PO BID [facility] Last Admin: 01/17/17 21:24 Dose: 100 mg Donepezil HCl (Aricept -) 10 mg PO DAILY [facility] Last Admin: 01/17/17 11:14 Dose: 10 mg Enoxaparin Sodium (Lovenox -) 30 mg SQ DAILY [facility] Last Admin: 01/17/17 11:16 Dose: 30 mg Escitalopram Oxalate (Lexapro -) 20 mg PO DAILY [facility] Last Admin: 01/17/17 11:16 Dose: 20 mg Folic Acid/Iron (Folitab 500 Caplet -) 1 each PO DAILY [facility] Last Admin: 01/17/17 11:15 Dose: 1 each Ceftriaxone Sodium (Rocephin 1gm Ivpb (Pre-Docked)) 50 mls @ 100 mls/hr IVPB DAILY [facility] Last Admin: 01/17/17 15:19 Dose: 100 mls/hr Lactobacillus Acidophilus (Bacid -) 1 tab PO DAILY [facility] Last Admin: 01/17/17 11:15 Dose: 1 tab Latanoprost (Xalatan 0.005% Eye Drops -) 1 drop OU HS [facility] Last Admin: 01/17/17 21:26 Dose: 1 drop Metoprolol Succinate (Toprol Xl -) 100 mg PO DAILY [facility] Last Admin: 01/17/17 11:16 Dose: 100 mg Multivitamins/Minerals/Vitamin C (Tab-A-Vit -) 1 tab PO DAILY [facility] Last Admin: 01/17/17 11:16 Dose: 1 tab Non-Formulary Medication (Aa/Hydrolyzed Collagen, Whey [Lps 15-30 Liquid]) 960 ml PO DAILY [facility] Quetiapine Fumarate (Seroquel -) 25 mg PO HS [facility] Last Admin: 01/17/17 21:24 Dose: 25 mg Review of Systems - Review of Systems Constitutional: no symptoms reported Respiratory: denies: Dyspnea or Cough Cardiovascular: As noted above Gastrointestinal: denies Nausea, Vomiting, Diarrhea, Constipation or Abdominal Pain Genitourinary: No symptoms reported Musculoskeletal: No symptoms reported Endocrine: No symptoms reported - Objective Vital Signs: Last Vital Signs Temp Pulse Resp BP Pulse Ox 97.8 F 71 18 146/72 98 01/18/17 06:00 01/18/17 06:00 01/18/17 06:00 01/18/17 06:00 01/17/17 21:00 Intake & Output 01/15/17 01/16/17 01/17/17 01/18/17 23:59 23:59 23:59 23:59 Intake Total 1070 1900 250 Output Total 300 Balance -300 1070 1900 250 Weight 140 lb Constitutional: No Distress, Calm, Thin Neck: Supple Negative JVD Respiratory: Diminished Breath Sounds at the Bases Cardiovascular: S1 S2 Regular Rate and Rhythm Gastrointestinal: Soft Benign Normal Bowel Sounds Ext: No Edema Labs: Blood test from this AM pending CBC, BMP 01/16/17 05:35 01/16/17 05:35 INR, PTT INR 1.12 (0.82-1.09) 01/15/17 14:30 Assessment/Plan ASSESSMENT: 1. Syncope probably neuro-cardiogenic syncope, vasodepressor vs. cardio- inhibitory, unlikely to be vaso-vagal 2. CAD post CABG angina pectoris, stable 3. 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 Paroxysmal atrial fibrillation [id number] score of 6 currently in sinus rhythm not on A/C therapy high risk A/C patient (history of dementia, fall risk and history of GI bleed) 5. HTN 6. Hyperlipidemia 7. Organic brain syndrome/Dementia 8. Rectal bleed 9. CKD 10. History of fall with left femoral neck fracture post ORIF PLAN: 1. Continue Toprol XL 2. Continue Lipitor 3. Ideally patient should on A/C therapy considering the above noted history of paroxysmal atrial fibrillation with [id number] score of 6 unless it is absolutely contraindicated, if bleeding persists may need to D/C Plavix 4. Avoid vasodilators 5. Evaluation of rectal bleed 6. Echocardiography to evaluate LV size and function 7. May transfer to floor care Francois Cohen M.D.
[2017-01-18 08:01] LABS: ANION GAP 12 (8-16); CALCIUM 7.9 mg/dL (8.5-10.1); CO2 26 mmol/L (21-32); CREATININE 0.5 mg/dL (0.55-1.02); GLUCOSE,RANDOM 54 mg/dL (74-106)
[2017-01-18] MEDS: ATROPINE SO4 1% OPHTH SOLN 5 ML BOTTLE OU SCH ×2 (09:57→22:55)
[2017-01-18] MEDS: DOCUSATE SODIUM 100 MG CAPSULE (FP) PO SCH ×2 (09:57→22:55)
[2017-01-18] MEDS: DONEPEZIL HCL 10 MG TABLET (FP) PO SCH (09:57)
[2017-01-18] MEDS: FERROUS SO4/VIT C/FA 1 EACH TABLET.ER PO SCH (09:57)
[2017-01-18] MEDS: LACTOBACILLUS ACIDOPHILUS 1 EACH TAB (FP) PO SCH (09:57)
[2017-01-18] MEDS: CLOPIDOGREL BISULFATE 75 MG TABLET (FP) PO SCH (09:58)
[2017-01-18] MEDS: ESCITALOPRAM OXALATE 20 MG TABLET (FP) PO SCH (09:58)
[2017-01-18] MEDS: ENOXAPARIN NA (PORCINE) 30 MG/0.3 ML DISP.SYRIN SQ SCH (09:58)
--- NOTE | 2017-01-18 09:59 | PN ---
Progress Note (short form) - Note Progress Note: Patient with history of Dementia severe, A.Fib and ASHD with treiplebypass had syncope at SNF and UTI is being treated. Only1 brother who does not wish tomakeany decisions for her. Someblood noted on underwear and will get GI to evaluate. Vital Signs Temp 97.8 F 01/18/17 06:00 Pulse 71 01/18/17 06:00 Resp 18 01/18/17 06:00 BP 146/72 01/18/17 06:00 Pulse Ox 98 01/17/17 21:00 Intake & Output 01/17/17 01/17/17 01/18/17 11:59 23:59 11:59 Intake Total 800 1100 250 Balance 800 1100 250 Intake: IV 700 550 10 Normal Saline - 1,000 ml 700 540 @ 60 mls/hr IV ASDIR ARLENE Rx#:[id number] SALINE LOCK 10 10 IVPB 50 Oral 100 500 240 Other: Voiding Method Incontinent Incontinent Incontinent # Unmeasured Voids Straight Cath 3 Void 2 2 2 Bowel Movement No No On Exam: Alert Confused Chest: Rare rhonchi Cor:Irregular Ext:No edema Abnormal Lab Results 01/18/17 05:35 Creatinine 0.5 L Random Glucose 54 L D Calcium 7.9 L IMP: Syncope UTI Severe Dementia ASHD ?Rectal Bleeding Plan: GI IV Antibiotics F/U Lab PT Back to SNF.
[2017-01-18] MEDS: METOPROLOL SUCCINATE 100 MG TAB.SR.24H (FP) PO SCH (10:01)
[2017-01-18] MEDS: CEFTRIAXONE 50 ML IVPB SCH (10:01)
[2017-01-18] MEDS: MULTIVITAMINS (DAILY MVI) TABLET (FP) PO SCH (10:01)
[2017-01-18] MEDS: ASCORBIC ACID 500 MG TABLET (FP) PO SCH (10:02)
[2017-01-18] MEDS ORDERED: PT OWN MED DRAWER 7, Y5N ONE ×3 (10:34→23:01)
--- NOTE | 2017-01-18 11:53 | CON.GI ---
Consult Consult Specialty:: GI Referred by:: Dr. Mosley Reason for Consultation:: ? of rectal bleeding, ? history of colouterine fistula - History of Present Illness Chief Complaint: Patient declines to give a chief complaint: admitted for syncope and hypotension @ [facility] History of Present Illness: 89F admitted from [place] 01/15 for evaluation of syncope and hypotension. Has been getting evaluated by cardiology, has A. Fib and A/C was to be started. Asked to evaluate patient because the nurse thought she saw some blood in Ms. Blount 's diaper. Ms. Blount denies any GI complaints. She is confused and does not remember if she had a colonoscopy in the past. 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 From [facility] reports I cannot ascertain iof thgis was ever worked up. - History Source History Provided By: Patient, Medical Record Limitations to Obtaining History: Dementia - Past Medical History [facility]: Yes: Dementia Cardio/Vascular: Yes: AFIB ((no lngwer on coumadin)), CAD, HTN, Hyperlipdemia Gastrointestinal: Yes: GI Bleed, Other (colon polyps) Renal/: Yes: Cancer (bladder tumor) Psych: Yes: Anxiety, Depression - Past Surgical History Past Surgical History: Yes: Nephrectomy, CABG Additional Surgical History: ORIF - Alcohol/Substance Use Hx Alcohol Use: No History of Substance Use: reports: None - Smoking History Smoking history: Former smoker Have you smoked in the past 12 months: No Aproximately how many cigarettes per day: 0 If you are a former smoker, when did you quit?: 2007 - Social History Usual Living Arrangement: Alone ADL: Support Services Place of : [facility] History of Recent Travel: No Home Medications - Allergies Allergies/Adverse Reactions: Allergies Allergy/AdvReac Type Severity Reaction Status Date / Time aspirin Allergy Verified 01/15/17 14:26 - Home Medications Home Medications: Ambulatory Orders Aa/Hydrolyzed Collagen, Whey [Lps 15-30 Liquid] 960 ml PO DAILY 07/09/16 Acetaminophen [Tylenol] 650 mg PO QID 07/09/16 Ascorbate Calcium [Vitamin C] 500 mg PO DAILY 07/09/16 Atorvastatin Ca [Lipitor] 40 mg PO HS 07/09/16 Atropine 1% Ophth. Solution - 0 drop OU BID 07/09/16 Collagenase Clostridium Hist. [Santyl] 1 applic TP DAILY 07/09/16 Docusate Sodium 100 mg PO BID 07/09/16 Donepezil HCl [Aricept] 10 mg PO DAILY 07/09/16 Enoxaparin [Lovenox -] 30 mg SQ DAILY 07/09/16 Escitalopram Oxalate [Lexapro -] 20 mg PO DAILY 07/09/16 Ferrous Sulfate/Vit C/FA [Folitab 500 Caplet] 1 each PO DAILY 07/09/16 Lactobacillus Acidophilus [Bacid -] 1 each PO DAILY 07/09/16 Latanoprost 0.005% Eye Drops [Xalatan 0.005% Eye Drops -] 1 drop HS 07/09/16 Metoprolol Succinate [Toprol Xl] 100 mg PO DAILY 07/09/16 Multivitamin [Poly-Vitamin] 1 each PO DAILY 07/09/16 Nystatin 100,000 unit PO TID 07/09/16 Oxycodone HCl 5 mg PO QID 07/09/16 Quetiapine Fumarate [Seroquel -] 25 mg PO HS 07/09/16 Family Disease History - Family Disease History Family Disease History: Heart Disease: Mother Review of Systems - Review of Systems Constitutional: denies: Chills Cardiovascular: denies: Chest Pain Respiratory: denies: SOB Gastrointestinal: denies: Abdominal Pain, Diarrhea, Rectal Bleeding Physical Exam-GI Vital Signs: Vital Signs Temperature 97.8 F 01/18/17 06:00 Pulse Rate 71 01/18/17 06:00 Respiratory Rate 18 01/18/17 06:00 Blood Pressure 146/72 01/18/17 06:00 O2 Sat by Pulse Oximetry (%) 98 01/17/17 21:00 Constitutional: Yes: Calm Eyes: No: Sclera Icterus Cardiovascular: Yes: Pulse Irregular (regular rate, irregular rhythm) Respiratory: Yes: CTA Bilaterally Gastrointestinal Inspection: Yes: Scars (left flank/abdominal scar) ...Auscultate: Yes: Normoactive Bowel Sounds ...Palpate: No: Tenderness ...Percussion: No: Tympanitic ...Rectal Exam: Yes: Other (No external lesions, no masses, no blood, ? of scant dried blood in anterior portion of diaper. Light brown formed stool in rectal vault, guaiac negative.) Edema: No Neurological: Yes: Alert, Confusion Labs: CBC, BMP 01/18/17 05:35 01/18/17 05:35 INR, PTT INR 1.12 (0.82-1.09) 01/15/17 14:30 Hepatic Panel Total Bilirubin 0.3 mg/dL (0.2-1.0) D 01/15/17 14:30 AST 27 U/L (15-37) D 01/15/17 14:30 ALT 15 U/L (12-78) 01/15/17 14:30 Alkaline Phosphatase 90 U/L (45-117) D 01/15/17 14:30 Albumin 2.0 g/dl (3.4-5.0) L D 01/15/17 14:30 Imaging - Results Cat Scan: Report Reviewed, Image Reviewed Problem List - Problems (1) Rectal bleed Assessment/Plan: No overt / occult evidence of rectal bleeding. ? from /Male Model source. Consider / psychiatric arnp evaluations given previous CT scan findings MiraLAX 17g daily Code(s): K62.5 - HEMORRHAGE OF ANUS AND RECTUM (2) Colouterine fistula Assessment/Plan: Consider colorectal surgeon evaluation I did ask Ms. Blount re: having colonoscopy performed to assess for colon pathgology given previous finding. She said "No, go away" I left a message to discuss things further with her step daughter James Reyes [phone] Code(s): N82.8 - OTHER FEMALE GENITAL TRACT FISTULAE
[2017-01-18] MEDS ORDERED: dilTIAZem HCL 50 MG/10 ML - 10 ML VIAL IVPUSH ONE (14:30)
--- NOTE | 2017-01-18 17:24 | PN ---
Progress Note, Physician History of Present Illness: seems patient was confused patient has jacket now patient is confused - Current Medication List Current Medications: Active Medications Acetaminophen (Tylenol -) 650 mg PO Q4H PRN PRN Reason: FEVER OR PAIN Ascorbic Acid (Vitamin C -) 500 mg PO DAILY [facility] Last Admin: 01/18/17 10:02 Dose: 500 mg Atorvastatin Calcium (Lipitor -) 40 mg PO HS [facility] Last Admin: 01/17/17 21:24 Dose: 40 mg Atropine Sulfate (Atropine 1% Ophth. Solution -) 1 drop OU BID [facility] Last Admin: 01/18/17 09:57 Dose: 1 drop Clopidogrel Bisulfate (Plavix -) 75 mg PO DAILY [facility] Last Admin: 01/18/17 09:58 Dose: 75 mg Docusate Sodium (Colace -) 100 mg PO BID [facility] Last Admin: 01/18/17 09:57 Dose: 100 mg Donepezil HCl (Aricept -) 10 mg PO DAILY [facility] Last Admin: 01/18/17 09:57 Dose: 10 mg Enoxaparin Sodium (Lovenox -) 30 mg SQ DAILY [facility] Last Admin: 01/18/17 09:58 Dose: 30 mg Escitalopram Oxalate (Lexapro -) 20 mg PO DAILY [facility] Last Admin: 01/18/17 09:58 Dose: 20 mg Folic Acid/Iron (Folitab 500 Caplet -) 1 each PO DAILY [facility] Last Admin: 01/18/17 09:57 Dose: 1 each Ertapenem 1 gm/ Sodium (Chloride) 50 mls @ 50 mls/hr IVPB DAILY [facility] PRN Reason: Protocol Lactobacillus Acidophilus (Bacid -) 1 tab PO DAILY [facility] Last Admin: 01/18/17 09:57 Dose: 1 tab Latanoprost (Xalatan 0.005% Eye Drops -) 1 drop OU HS [facility] Last Admin: 01/17/17 21:26 Dose: 1 drop Metoprolol Succinate (Toprol Xl -) 100 mg PO DAILY [facility] Last Admin: 01/18/17 10:01 Dose: 100 mg Multivitamins/Minerals/Vitamin C (Tab-A-Vit -) 1 tab PO DAILY [facility] Last Admin: 01/18/17 10:01 Dose: 1 tab Non-Formulary Medication (Aa/Hydrolyzed Collagen, Whey [Lps 15-30 Liquid]) 960 ml PO DAILY [facility] Quetiapine Fumarate (Seroquel -) 25 mg PO HS [facility] Last Admin: 01/17/17 21:24 Dose: 25 mg - Objective Vital Signs: Vital Signs Temperature 98.6 F 01/18/17 14:00 Pulse Rate 78 01/18/17 14:00 Respiratory Rate 18 01/18/17 10:00 Blood Pressure 90/78 01/18/17 14:00 O2 Sat by Pulse Oximetry (%) 98 01/18/17 09:00 Constitutional: Yes: Calm Cardiovascular: Yes: Regular Rate and Rhythm Respiratory: Yes: Regular, CTA Bilaterally Gastrointestinal: Yes: Normal Bowel Sounds, Soft Musculoskeletal: Yes: WNL Extremities: Yes: WNL Neurological: Yes: Confusion, Other Psychiatric: Yes: Alert Labs: CBC, BMP 01/18/17 05:35 01/18/17 05:35 INR, PTT INR 1.12 (0.82-1.09) 01/15/17 14:30 Assessment/Plan Problem List - Problems (1) Syncope Code(s): R55 - SYNCOPE AND COLLAPSE Qualifiers: Syncope type: unspecified Qualified Code(s): R55 - Syncope and collapse (2) CVA (cerebral vascular accident) Code(s): I63.9 - CEREBRAL INFARCTION, UNSPECIFIED (3) Afib Code(s): I48.91 - UNSPECIFIED ATRIAL FIBRILLATION Qualifiers: Atrial fibrillation type: paroxysmal Qualified Code(s): I48.0 - Paroxysmal atrial fibrillation (4) CAD (coronary artery disease) Code(s): I25.10 - ATHSCL HEART DISEASE OF [place] CORONARY ARTERY W/O ANG PCTRS Qualifiers: (5) Dementia Code(s): F03.90 - UNSPECIFIED DEMENTIA WITHOUT BEHAVIORAL DISTURBANCE (6) Hyperlipidemia Code(s): E78.5 - HYPERLIPIDEMIA, UNSPECIFIED Qualifiers: (7) Hypertension Code(s): I10 - ESSENTIAL (PRIMARY) HYPERTENSION 8 uti plan esbl uti changed abx patinet will need abx for 2 weeks
[2017-01-18] MEDS: ERTAPENEM SODIUM 1 GM in SODIUM CHLORIDE 50 ML IVPB SCH (18:00)
--- NOTE | 2017-01-18 21:54 | HOSP ---
Subjective - Review of Symptoms Subjective: Paged due to patient found outside of bed on the ground and for evaluation. She states she was moving from lying in bed to sitting on the side of the bed when she lost balance and her legs did not have enough strength to hold her up. Pt's story is unreliable however is adamant her retelling is factual. Pt denies any syncopal episodes per her admission, LOC, denies any pain from head or injuries on limbs. Pt is on both lovenox and plavix. Dr. Branch was notified about this incident. Physical Examination Vital Signs: Vital Signs Temperature 98.8 F 01/18/17 17:00 Pulse Rate 121 H 01/18/17 17:00 Respiratory Rate 18 01/18/17 17:00 Blood Pressure 108/60 01/18/17 17:00 O2 Sat by Pulse Oximetry (%) 98 01/18/17 09:00 Constitutional: Yes: No Distress, Anxious, Thin HENT: Yes: Normocephalic, Other (No hematomas seen on head. No contusions, abrasions, lacerations seen) Cardiovascular: Yes: Regular Rate and Rhythm. No: Murmur Respiratory: Yes: Regular, CTA Bilaterally. No: SOB Extremities: Yes: WNL, Other (No lacerations, contusions, bleeding or abrasions) Edema: No Neurological: Yes: Alert, Oriented, Cran Nerves II-XII Intact, Other (Slightly weak in peripheral extremities; no change from baseline strength). No: Facial Droop Psychiatric: Yes: Alert, Oriented, Agitated Labs: CBC, BMP 01/18/17 05:35 01/18/17 05:35 Hospitalist Encounter Assessment: 89yo frail F who was admitted for syncopal episodes that had a unwitnessed possible fall. Denies LOC, syncope, bleeding, pain, trauma to head; however pt is unreliable. --Weakness in peripheral extremities seem to be baseline strength for this patient. No focal deficits appreciated --Head CT w/o contrast ordered --Pt is a frail elderly women who is on blood thinning agents with an unwitnessed fall. Story seems unreliable and would recommend the CT; will f/u
[2017-01-18] MEDS: QUEtiapine FUMARATE 25 MG TABLET (FP) PO SCH (22:55)
[2017-01-18] MEDS: LATANOPROST 0.005% OPHTH SOLN 2.5ML BOTTLE OU SCH (22:55)
[2017-01-18] MEDS: ATORVASTATIN CA 40 MG TABLET (FP) PO SCH (22:55)
[2017-01-19 08:06] LABS: BASOPHIL 0.6 % (0-2.0); EOSINOPHIL 1.7 % (0-4.5); MCH 28.7 pg (25.7-33.7); MCHC 32.8 g/dl (32.0-36.0); MEAN CELL VOLUME 87.4 fl (80-96); MEAN PLT VOLUME 8.2 fl (7.5-11.1); NEUTROPHILS 76.7 % (42.8-82.8); PLATELET COUNT 185 K/MM3 (134-434); RDW 14.7 % (11.6-15.6); WHITE BLOOD COUNT 8.4 K/mm3 (4.0-10.0)
[2017-01-19 08:46] LABS: THYROID STIMULATING HORMONE 2.9 uIU/ml (0.358-3.74)
--- NOTE | 2017-01-19 08:51 | PN ---
Progress Note (short form) - Note Progress Note: Chief Complaint: Events noted, noted reviewed. Fall out of bed last night, denies any chest pain or dyspnea, remains confused and disoriented and occasionally agitated History of Present Illness: Seen and examined on telemetry. Events noted, noted reviewed. Fall out of bed last night, denies any chest pain or dyspnea, remains confused and disoriented and occasionally agitated Developed transient PAF, reverted back to sinus rhythm, despite patient's [id number] score of 6 she is not an appropriate candidate for A/C Echocardiography performed yesterday noted no change from study dated 07/30/15 normal LV size and function, AV sclerosis, MAC, mild MR and mild TR - Current Medication List Current Medications Acetaminophen (Tylenol -) 650 mg PO Q4H PRN PRN Reason: FEVER OR PAIN Ascorbic Acid (Vitamin C -) 500 mg PO DAILY [facility] Last Admin: 01/18/17 10:02 Dose: 500 mg Atorvastatin Calcium (Lipitor -) 40 mg PO HS [facility] Last Admin: 01/18/17 22:55 Dose: 40 mg Atropine Sulfate (Atropine 1% Ophth. Solution -) 1 drop OU BID [facility] Last Admin: 01/18/17 22:55 Dose: 1 drop Clopidogrel Bisulfate (Plavix -) 75 mg PO DAILY [facility] Last Admin: 01/18/17 09:58 Dose: 75 mg Docusate Sodium (Colace -) 100 mg PO BID [facility] Last Admin: 01/18/17 22:55 Dose: 100 mg Donepezil HCl (Aricept -) 10 mg PO DAILY [facility] Last Admin: 01/18/17 09:57 Dose: 10 mg Enoxaparin Sodium (Lovenox -) 30 mg SQ DAILY [facility] Last Admin: 01/18/17 09:58 Dose: 30 mg Escitalopram Oxalate (Lexapro -) 20 mg PO DAILY [facility] Last Admin: 01/18/17 09:58 Dose: 20 mg Folic Acid/Iron (Folitab 500 Caplet -) 1 each PO DAILY [facility] Last Admin: 01/18/17 09:57 Dose: 1 each Ertapenem 1 gm/ Sodium (Chloride) 50 mls @ 50 mls/hr IVPB DAILY [facility] PRN Reason: Protocol Last Admin: 01/18/17 18:00 Dose: 50 mls/hr Lactobacillus Acidophilus (Bacid -) 1 tab PO DAILY [facility] Last Admin: 01/18/17 09:57 Dose: 1 tab Latanoprost (Xalatan 0.005% Eye Drops -) 1 drop OU HS [facility] Last Admin: 01/18/17 22:55 Dose: 1 drop Metoprolol Succinate (Toprol Xl -) 100 mg PO DAILY [facility] Last Admin: 01/18/17 10:01 Dose: 100 mg Multivitamins/Minerals/Vitamin C (Tab-A-Vit -) 1 tab PO DAILY [facility] Last Admin: 01/18/17 10:01 Dose: 1 tab Non-Formulary Medication (Aa/Hydrolyzed Collagen, Whey [Lps 15-30 Liquid]) 960 ml PO DAILY [facility] Quetiapine Fumarate (Seroquel -) 25 mg PO HS [facility] Last Admin: 01/18/17 22:55 Dose: 25 mg Review of Systems - Review of Systems Constitutional: no symptoms reported Respiratory: denies: Dyspnea or Cough Cardiovascular: As noted above Gastrointestinal: denies Nausea, Vomiting, Diarrhea, Constipation or Abdominal Pain Genitourinary: No symptoms reported Musculoskeletal: No symptoms reported Endocrine: No symptoms reported - Objective Vital Signs: Last Vital Signs Temp Pulse Resp BP Pulse Ox 98.3 F 79 20 109/61 95 01/19/17 05:00 01/19/17 05:00 01/19/17 05:00 01/19/17 05:00 01/18/17 21:00 Intake & Output 01/16/17 01/17/17 01/18/17 01/19/17 23:59 23:59 23:59 23:59 Intake Total 1070 1900 640 130 Balance 1070 1900 640 130 Constitutional: No Distress, Calm, Thin Neck: Supple Negative JVD Respiratory: Diminished Breath Sounds at the Bases Cardiovascular: S1 S2 Regular Rate and Rhythm Gastrointestinal: Soft Benign Normal Bowel Sounds Ext: No Edema Labs: CBC, BMP 01/19/17 05:35 01/18/17 05:35 Assessment/Plan ASSESSMENT: 1. Syncope probably neuro-cardiogenic syncope, vasodepressor vs. cardio- inhibitory, unlikely to be vaso-vagal 2. CAD post CABG angina pectoris, stable 3. 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 Paroxysmal atrial fibrillation [id number] score of 6 currently in sinus rhythm not on A/C therapy high risk A/C patient (history of dementia, fall risk and history of gastro-intestinal bleed) 5. HTN 6. Hyperlipidemia 7. Organic brain syndrome/Dementia 8. Rectal bleed 9. CKD 10. History of fall with left femoral neck fracture post ORIF PLAN: 1. Continue Toprol XL 2. Continue Lipitor 3. Ideally patient should on A/C therapy considering the above noted history of paroxysmal atrial fibrillation with [id number] score of 6 unless it is absolutely contraindicated, as outlined above not an appropriate candidate for A /C 4. Avoid vasodilators 5. May transfer to floor care Francois Cohen M.D.
[2017-01-19] MEDS: MULTIVITAMINS (DAILY MVI) TABLET (FP) PO SCH (09:18)
[2017-01-19] MEDS: CLOPIDOGREL BISULFATE 75 MG TABLET (FP) PO SCH (09:18)
[2017-01-19] MEDS: ERTAPENEM SODIUM 1 GM in SODIUM CHLORIDE 50 ML IVPB SCH (09:18)
[2017-01-19] MEDS: LACTOBACILLUS ACIDOPHILUS 1 EACH TAB (FP) PO SCH (09:19)
[2017-01-19] MEDS: FERROUS SO4/VIT C/FA 1 EACH TABLET.ER PO SCH (09:19)
[2017-01-19] MEDS: METOPROLOL SUCCINATE 100 MG TAB.SR.24H (FP) PO SCH (09:19)
[2017-01-19] MEDS: ASCORBIC ACID 500 MG TABLET (FP) PO SCH (09:19)
[2017-01-19] MEDS: DONEPEZIL HCL 10 MG TABLET (FP) PO SCH (09:19)
[2017-01-19] MEDS: DOCUSATE SODIUM 100 MG CAPSULE (FP) PO SCH ×2 (09:19→21:59)
[2017-01-19] MEDS: ENOXAPARIN NA (PORCINE) 30 MG/0.3 ML DISP.SYRIN SQ SCH (09:19)
[2017-01-19] MEDS: ATROPINE SO4 1% OPHTH SOLN 5 ML BOTTLE OU SCH ×2 (09:19→22:00)
[2017-01-19] MEDS: ESCITALOPRAM OXALATE 20 MG TABLET (FP) PO SCH (09:19)
--- NOTE | 2017-01-19 10:50 | CON.OBG ---
Consult Consult Specialty:: Gynecology Reason for Consultation:: blood with feses, noted by the nurse on the depend- diper - History of Present Illness Chief Complaint: Blood smudging noted by the nurse on the diper History of Present Illness: 89F [place] 01[place] for evaluation of syncope and hypotension. Has been getting evaluated by cardiology, has Sarah Silva Asked to evaluate patient because the nurse thought she saw some blood in Ms. Blount's diaper. Ms. Blount denies any PROTECTIVE SIGNAL OPERATIONS SUPERVISOR complaints. She states " the blood is coming out of my back hole , I am dry at the front". 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 She had US 07/2015 @ [facility] and our office 10/2015, both did not show any significant PROTECTIVE SIGNAL OPERATIONS SUPERVISOR pathology. She has no significant change in Hemoglobin and vital signs show no evidence of sever blood loss. - History Source History Provided By: Medical Record Limitations to Obtaining History: Dementia - Past Medical History FILTER TANK TENDER: Yes: Dementia Cardio/Vascular: Yes: AFIB ((no lngwer on coumadin)), CAD, HTN, Hyperlipdemia Gastrointestinal: Yes: GI Bleed, Other (colon polyps) Renal/: Yes: Cancer (bladder tumor) Psych: Yes: Anxiety, Depression - Past Surgical History Past Surgical History: Yes: Nephrectomy, CABG Additional Surgical History: ORIF - Alcohol/Substance Use Hx Alcohol Use: No History of Substance Use: reports: None - Smoking History Smoking history: Former smoker Have you smoked in the past 12 months: No Aproximately how many cigarettes per day: 0 If you are a former smoker, when did you quit?: 2007 - Social History Usual Living Arrangement: Alone ADL: Support Services History of Recent Travel: No Home Medications - Allergies Allergies/Adverse Reactions: Allergies Allergy/AdvReac Type Severity Reaction Status Date / Time aspirin Allergy Verified 01/15/17 14:26 - Home Medications Home Medications: Ambulatory Orders Aa/Hydrolyzed Collagen, Whey [Lps 15-30 Liquid] 960 ml PO DAILY 07/09/16 Acetaminophen [Tylenol] 650 mg PO QID 07/09/16 Ascorbate Calcium [Vitamin C] 500 mg PO DAILY 07/09/16 Atorvastatin Ca [Lipitor] 40 mg PO HS 07/09/16 Atropine 1% Ophth. Solution - 0 drop OU BID 07/09/16 Collagenase Clostridium Hist. [Santyl] 1 applic TP DAILY 07/09/16 Docusate Sodium 100 mg PO BID 07/09/16 Donepezil HCl [Aricept] 10 mg PO DAILY 07/09/16 Enoxaparin [Lovenox -] 30 mg SQ DAILY 07/09/16 Escitalopram Oxalate [Lexapro -] 20 mg PO DAILY 07/09/16 Ferrous Sulfate/Vit C/FA [Folitab 500 Caplet] 1 each PO DAILY 07/09/16 Lactobacillus Acidophilus [Bacid -] 1 each PO DAILY 07/09/16 Latanoprost 0.005% Eye Drops [Xalatan 0.005% Eye Drops -] 1 drop HS 07/09/16 Metoprolol Succinate [Toprol Xl] 100 mg PO DAILY 07/09/16 Multivitamin [Poly-Vitamin] 1 each PO DAILY 07/09/16 Nystatin 100,000 unit PO TID 07/09/16 Oxycodone HCl 5 mg PO QID 07/09/16 Quetiapine Fumarate [Seroquel -] 25 mg PO HS 07/09/16 Family Disease History - Family Disease History Family Disease History: Heart Disease: Mother Physical Exam-PROTECTIVE SIGNAL OPERATIONS SUPERVISOR Vital Signs: Vital Signs Temperature 97.9 F 01/19/17 09:16 Pulse Rate 79 01/19/17 09:16 Respiratory Rate 20 01/19/17 09:16 Blood Pressure 134/66 01/19/17 09:16 O2 Sat by Pulse Oximetry (%) 97 01/19/17 08:00 Constitutional: Yes: No Distress, Calm Neck: Yes: WNL Gastrointestinal: Yes: Normal Bowel Sounds (Not distended, not tender), Soft External Genitalia: Yes: Normal Vaginal Exam: Yes: Other (Diper with small amount of feses with mixed in bloody discharge Difficult exam, patient allwed one digit in the vagina showed no vaginal or pelvic mass no bright red blood on the vaginal glove, small amount of brownish discharge) Cervix: Yes: Other (not palpable, patient not willing to cooperate with exam) Uterus: Yes: Normal (not palpable, patient not willing to cooperate with exam) Neurological: Yes: Alert (confused can not answer any directed question) Labs: CBC, BMP 01/19/17 05:35 01/18/17 05:35 Assessment/Plan 89F [place] 01[place] for evaluation of syncope and hypotension. Has been getting evaluated by cardiology, has A. Fib, being evaluated for small amount of blood on the diper. 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 Unlikely PROTECTIVE SIGNAL OPERATIONS SUPERVISOR Etiology. will await results of endovaginal US and if stable in comparison with prior exams would not consider any further intervention, and defer to GI and colorectal surgery for further evaluation, if family desires further intervention.
--- NOTE | 2017-01-19 11:57 | PN ---
Progress Note (short form) - Note Progress Note: No call back from daughter in law as of yet Problem List - Problems (1) Rectal bleed Code(s): K62.5 - HEMORRHAGE OF ANUS AND RECTUM (2) Colouterine fistula Code(s): N82.8 - OTHER FEMALE GENITAL TRACT FISTULAE
--- NOTE | 2017-01-19 13:38 | PN ---
Progress Note (short form) - Note Progress Note: Patient with history of Dementia, ASHD with CABG and hypertension admitted with syncope. Discovered to have Acute UTI and on Rx. seen by Cardiology for evaluation. Nurse noted some blood staining in her diaper and GI MD saw patient and Guiac negative, CAVING GUIDE ordered Vaginal sonogrambut Sono Dept wanted patient permission for test. Patient might agree to test but with her dementia and no surrogate available to sign for her 2 MD's: Myself and CAVING GUIDE could agree that the test is necessary. I agree with the testing and await CAVING GUIDE MD's opinion. Will order a repeat CT of head due to unwitnessed fall and she is on Lovenox and Plavix. Also will order repeat CT abdomen and pelvis to reassess the ?Previous fistula noted earlier this year. No obvious injury fromunwitnessed fall this AM.Alfredo ordered to help prevent future fallsand injury. On Exam: Vital Signs Temp 97.9 F 01/19/17 09:16 Pulse 79 01/19/17 09:16 Resp 20 01/19/17 09:16 BP 134/66 01/19/17 09:16 Pulse Ox 97 01/19/17 08:00 Intake & Output 01/18/17 01/19/17 01/19/17 23:59 11:59 23:59 Intake Total 390 230 Balance 390 230 Intake: IV 10 SALINE LOCK 10 IVPB 50 Oral 340 220 Other: Voiding Method Incontinent Incontinent # Unmeasured Voids Void 2 2 Bowel Movement No Alert Tongue: Thrush Chest: No Rales Cor: Regular today Abd: Soft with no focal tenderness to palpation Ext:No edema Abnormal Lab Results 01/19/17 01/19/17 05:35 05:35 Hgb 10.4 L Hct 31.7 L Monocytes % 10.8 H Vitamin B12 1586 H Serum Folate 83 H IMP: Acute UTI on Rx Syncope neurogenic vs vasovagal A. Fibrillation Dementia severe ASHD S/P CABG Falls Thrush Plan: Repeat CT head CAT scan abdomen and pelvis F/U Lab nystatin suspension
--- NOTE | 2017-01-19 14:59 | PN ---
Progress Note, Physician History of Present Illness: patient stable events noted gi on case for bleeding seen by gynac - Current Medication List Current Medications: Active Medications Acetaminophen (Tylenol -) 650 mg PO Q4H PRN PRN Reason: FEVER OR PAIN Ascorbic Acid (Vitamin C -) 500 mg PO DAILY [facility] Last Admin: 01/19/17 09:19 Dose: 500 mg Atorvastatin Calcium (Lipitor -) 40 mg PO HS [facility] Last Admin: 01/18/17 22:55 Dose: 40 mg Atropine Sulfate (Atropine 1% Ophth. Solution -) 1 drop OU BID [facility] Last Admin: 01/19/17 09:19 Dose: 1 drop Clopidogrel Bisulfate (Plavix -) 75 mg PO DAILY [facility] Last Admin: 01/19/17 09:18 Dose: 75 mg Docusate Sodium (Colace -) 100 mg PO BID [facility] Last Admin: 01/19/17 09:19 Dose: 100 mg Donepezil HCl (Aricept -) 10 mg PO DAILY [facility] Last Admin: 01/19/17 09:19 Dose: 10 mg Enoxaparin Sodium (Lovenox -) 30 mg SQ DAILY [facility] Last Admin: 01/19/17 09:19 Dose: 30 mg Escitalopram Oxalate (Lexapro -) 20 mg PO DAILY [facility] Last Admin: 01/19/17 09:19 Dose: 20 mg Folic Acid/Iron (Folitab 500 Caplet -) 1 each PO DAILY [facility] Last Admin: 01/19/17 09:19 Dose: 1 each Ertapenem 1 gm/ Sodium (Chloride) 50 mls @ 50 mls/hr IVPB DAILY [facility] PRN Reason: Protocol Last Admin: 01/19/17 09:18 Dose: 50 mls/hr Lactobacillus Acidophilus (Bacid -) 1 tab PO DAILY [facility] Last Admin: 01/19/17 09:19 Dose: 1 tab Latanoprost (Xalatan 0.005% Eye Drops -) 1 drop OU HS [facility] Last Admin: 01/18/17 22:55 Dose: 1 drop Metoprolol Succinate (Toprol Xl -) 100 mg PO DAILY [facility] Last Admin: 01/19/17 09:19 Dose: 100 mg Multivitamins/Minerals/Vitamin C (Tab-A-Vit -) 1 tab PO DAILY [facility] Last Admin: 01/19/17 09:18 Dose: 1 tab Non-Formulary Medication (Aa/Hydrolyzed Collagen, Whey [Lps 15-30 Liquid]) 960 ml PO DAILY [facility] Nystatin (Nystatin Oral Suspension -) 500,000 units PO Q6HPO [facility] Quetiapine Fumarate (Seroquel -) 25 mg PO HS [facility] Last Admin: 01/18/17 22:55 Dose: 25 mg - Objective Vital Signs: Vital Signs Temperature 97.9 F 01/19/17 09:16 Pulse Rate 79 01/19/17 09:16 Respiratory Rate 20 01/19/17 09:16 Blood Pressure 134/66 01/19/17 09:16 O2 Sat by Pulse Oximetry (%) 97 01/19/17 08:00 Constitutional: Yes: No Distress, Calm HENT: Yes: Other (oral thrush) Cardiovascular: Yes: Regular Rate and Rhythm Respiratory: Yes: Regular, CTA Bilaterally Gastrointestinal: Yes: Normal Bowel Sounds, Soft Musculoskeletal: Yes: WNL Extremities: Yes: WNL Neurological: Yes: Alert, Other Psychiatric: Yes: Other Labs: CBC, BMP 01/19/17 05:35 01/18/17 05:35 INR, PTT INR 1.12 (0.82-1.09) 01/15/17 14:30 Assessment/Plan Problem List - Problems (1) Syncope Code(s): R55 - SYNCOPE AND COLLAPSE Qualifiers: Syncope type: unspecified Qualified Code(s): R55 - Syncope and collapse (2) CVA (cerebral vascular accident) Code(s): I63.9 - CEREBRAL INFARCTION, UNSPECIFIED (3) Afib Code(s): I48.91 - UNSPECIFIED ATRIAL FIBRILLATION Qualifiers: Atrial fibrillation type: paroxysmal Qualified Code(s): I48.0 - Paroxysmal atrial fibrillation (4) CAD (coronary artery disease) Code(s): I25.10 - ATHSCL HEART DISEASE OF [place] CORONARY ARTERY W/O ANG PCTRS Qualifiers: (5) Dementia Code(s): F03.90 - UNSPECIFIED DEMENTIA WITHOUT BEHAVIORAL DISTURBANCE (6) Hyperlipidemia Code(s): E78.5 - HYPERLIPIDEMIA, UNSPECIFIED Qualifiers: (7) Hypertension Code(s): I10 - ESSENTIAL (PRIMARY) HYPERTENSION 8 uti thrush plan continue abx as planned nystatin started by primary team rest as per gi and fyn continue supportive care
[2017-01-19] MEDS: NYSTATIN 500,000 UNITS/5 ML SUSPENSION PO SCH (17:37)
[2017-01-19] MEDS ORDERED: PT OWN MED DRAWER 7, Y5N ONE ×2 (21:18→22:21)
[2017-01-19] MEDS: ATORVASTATIN CA 40 MG TABLET (FP) PO SCH (21:59)
[2017-01-19] MEDS: QUEtiapine FUMARATE 25 MG TABLET (FP) PO SCH (21:59)
[2017-01-19] MEDS: LATANOPROST 0.005% OPHTH SOLN 2.5ML BOTTLE OU SCH (22:00)
[2017-01-20] MEDS: NYSTATIN 500,000 UNITS/5 ML SUSPENSION PO SCH ×4 (00:58→17:01)
[2017-01-20 07:57] LABS: BASOPHIL 0.6 % (0-2.0); EOSINOPHIL 2.8 % (0-4.5); MCH 28.4 pg (25.7-33.7); MCHC 32.2 g/dl (32.0-36.0); MEAN CELL VOLUME 88.2 fl (80-96); NEUTROPHILS 79.2 % (42.8-82.8); PLATELET COUNT 199 K/MM3 (134-434); RDW 15.1 % (11.6-15.6); WHITE BLOOD COUNT 8.6 K/mm3 (4.0-10.0)
[2017-01-20 08:28] LABS: ANION GAP 14 (8-16); CALCIUM 8.3 mg/dL (8.5-10.1); CO2 23 mmol/L (21-32); GLUCOSE,RANDOM 74 mg/dL (74-106)
--- NOTE | 2017-01-20 08:28 | PN ---
Progress Note, Physician Chief Complaint: Patient said she was feeling her "heart having palpitations". History of Present Illness: Patient with Dementia, syncope, ASHD with CABG and colouterine fistula and Paroxysmal A. Fibrillation and Acute UTI is having a recurrence of A. Fib when seen this AM. Nurse will give AM Metoprolol 100mg dose now; if no effect Cardiology MD will be notified. Re: Fistula ? Mass the sonogram department is questioning ? consent and I dont think she understands the sonogram need as per TOOL PUSHER opinion. I have written I will agree to the test and if TOOL PUSHER concurs we can send her down for the sonogram. Whether she fights the test when there is not predictable. I did order CT with no contrast ABD-Pelvic. Repeat CT Brain OK. - Current Medication List Current Medications: Active Medications Acetaminophen (Tylenol -) 650 mg PO Q4H PRN PRN Reason: FEVER OR PAIN Ascorbic Acid (Vitamin C -) 500 mg PO DAILY [facility] Last Admin: 01/19/17 09:19 Dose: 500 mg Atorvastatin Calcium (Lipitor -) 40 mg PO HS [facility] Last Admin: 01/19/17 21:59 Dose: 40 mg Atropine Sulfate (Atropine 1% Ophth. Solution -) 1 drop OU BID [facility] Last Admin: 01/19/17 22:00 Dose: 1 drop Clopidogrel Bisulfate (Plavix -) 75 mg PO DAILY [facility] Last Admin: 01/19/17 09:18 Dose: 75 mg Docusate Sodium (Colace -) 100 mg PO BID [facility] Last Admin: 01/19/17 21:59 Dose: 100 mg Donepezil HCl (Aricept -) 10 mg PO DAILY [facility] Last Admin: 01/19/17 09:19 Dose: 10 mg Enoxaparin Sodium (Lovenox -) 30 mg SQ DAILY [facility] Last Admin: 01/19/17 09:19 Dose: 30 mg Escitalopram Oxalate (Lexapro -) 20 mg PO DAILY [facility] Last Admin: 01/19/17 09:19 Dose: 20 mg Folic Acid/Iron (Folitab 500 Caplet -) 1 each PO DAILY [facility] Last Admin: 01/19/17 09:19 Dose: 1 each Ertapenem 1 gm/ Sodium (Chloride) 50 mls @ 50 mls/hr IVPB DAILY [facility] PRN Reason: Protocol Last Admin: 01/19/17 09:18 Dose: 50 mls/hr Lactobacillus Acidophilus (Bacid -) 1 tab PO DAILY [facility] Last Admin: 01/19/17 09:19 Dose: 1 tab Latanoprost (Xalatan 0.005% Eye Drops -) 1 drop OU HS [facility] Last Admin: 01/19/17 22:00 Dose: 1 drop Metoprolol Succinate (Toprol Xl -) 100 mg PO DAILY [facility] Last Admin: 01/19/17 09:19 Dose: 100 mg Multivitamins/Minerals/Vitamin C (Tab-A-Vit -) 1 tab PO DAILY [facility] Last Admin: 01/19/17 09:18 Dose: 1 tab Non-Formulary Medication (Aa/Hydrolyzed Collagen, Whey [Lps 15-30 Liquid]) 960 ml PO DAILY [facility] Nystatin (Nystatin Oral Suspension -) 500,000 units PO Q6HPO [facility] Last Admin: 01/20/17 06:12 Dose: 500,000 units Quetiapine Fumarate (Seroquel -) 25 mg PO HS [facility] Last Admin: 01/19/17 21:59 Dose: 25 mg - Objective Vital Signs: Vital Signs Temperature 98.4 F 01/20/17 05:54 Pulse Rate 92 H 01/20/17 05:54 Respiratory Rate 18 01/20/17 05:54 Blood Pressure 120/73 01/20/17 05:54 O2 Sat by Pulse Oximetry (%) 97 01/19/17 08:00 Constitutional: Yes: Calm, Pallor HENT: Yes: Thrush Cardiovascular: Yes: Tachycardia (120/min), Pulse Irregular Gastrointestinal: Yes: Soft, Hypoactive Bowel Sounds. No: Tenderness Genitourinary: No: Osman Present Edema: No Neurological: Yes: Alert, Confusion Labs: INR, PTT INR 1.12 (0.82-1.09) 01/15/17 14:30 - ....Imaging Cat Scan: Report Reviewed Problem List - Problems (1) Syncope Assessment/Plan: No change on 2 CT head. Evaluated by Neuro and Cardiology. Code(s): R55 - SYNCOPE AND COLLAPSE Qualifiers: Syncope type: unspecified Qualified Code(s): R55 - Syncope and collapse (2) Colouterine fistula Assessment/Plan: Repeat CT ordered. GI and TOOL PUSHER MD's saw patient. Code(s): N82.8 - OTHER FEMALE GENITAL TRACT FISTULAE (3) UTI (urinary tract infection) Assessment/Plan: On Rx as per BENJAMIN SPANGLER. Code(s): N39.0 - URINARY TRACT INFECTION, SITE NOT SPECIFIED Qualifiers: Urinary tract infection type: acute cystitis Hematuria presence: without hematuria Qualified Code(s): N30.00 - Acute cystitis without hematuria (4) Afib Assessment/Plan: Recurrence this AM; Metoprolol Rx stat given. Code(s): I48.91 - UNSPECIFIED ATRIAL FIBRILLATION Qualifiers: Atrial fibrillation type: paroxysmal Qualified Code(s): I48.0 - Paroxysmal atrial fibrillation (5) CAD (coronary artery disease) Assessment/Plan: S/P CABG Code(s): I25.10 - ATHSCL HEART DISEASE OF [place] CORONARY ARTERY W/O ANG PCTRS Qualifiers: (6) Fall Code(s): W19.XXXA - UNSPECIFIED FALL, INITIAL ENCOUNTER Qualifiers: Encounter type: initial encounter Qualified Code(s): W19.XXXA - Unspecified fall, initial encounter
[2017-01-20 08:30] LABS: CREATININE 0.7 mg/dL (0.55-1.02)
[2017-01-20] MEDS: METOPROLOL SUCCINATE 100 MG TAB.SR.24H (FP) PO SCH ×2 (08:40→11:20)
[2017-01-20] MEDS ORDERED: ESCITALOPRAM OXALATE 10 MG TABLET (FP) ONE (10:36)
[2017-01-20] MEDS: MULTIVITAMINS (DAILY MVI) TABLET (FP) PO SCH (10:48)
[2017-01-20] MEDS: ERTAPENEM SODIUM 1 GM in SODIUM CHLORIDE 50 ML IVPB SCH (10:48)
[2017-01-20] MEDS: DONEPEZIL HCL 10 MG TABLET (FP) PO SCH (10:48)
[2017-01-20] MEDS: ASCORBIC ACID 500 MG TABLET (FP) PO SCH (10:48)
[2017-01-20] MEDS: LACTOBACILLUS ACIDOPHILUS 1 EACH TAB (FP) PO SCH (10:48)
[2017-01-20] MEDS: DOCUSATE SODIUM 100 MG CAPSULE (FP) PO SCH ×2 (10:48→22:44)
[2017-01-20] MEDS: CLOPIDOGREL BISULFATE 75 MG TABLET (FP) PO SCH (10:48)
[2017-01-20] MEDS: ENOXAPARIN NA (PORCINE) 30 MG/0.3 ML DISP.SYRIN SQ SCH (10:49)
[2017-01-20] MEDS: ESCITALOPRAM OXALATE 20 MG TABLET (FP) PO SCH (10:49)
[2017-01-20] MEDS: ATROPINE SO4 1% OPHTH SOLN 5 ML BOTTLE OU SCH ×2 (10:51→22:44)
[2017-01-20] MEDS: FERROUS SO4/VIT C/FA 1 EACH TABLET.ER PO SCH (11:20)
--- NOTE | 2017-01-20 11:20 | PN ---
Progress Note, Physician History of Present Illness: Reported palpitations earlier this AM, now sleeping. - Current Medication List Current Medications: Active Medications Acetaminophen (Tylenol -) 650 mg PO Q4H PRN PRN Reason: FEVER OR PAIN Ascorbic Acid (Vitamin C -) 500 mg PO DAILY [facility] Last Admin: 01/20/17 10:48 Dose: 500 mg Atorvastatin Calcium (Lipitor -) 40 mg PO HS [facility] Last Admin: 01/19/17 21:59 Dose: 40 mg Atropine Sulfate (Atropine 1% Ophth. Solution -) 1 drop OU BID [facility] Last Admin: 01/20/17 10:51 Dose: 1 drop Clopidogrel Bisulfate (Plavix -) 75 mg PO DAILY [facility] Last Admin: 01/20/17 10:48 Dose: 75 mg Docusate Sodium (Colace -) 100 mg PO BID [facility] Last Admin: 01/20/17 10:48 Dose: 100 mg Donepezil HCl (Aricept -) 10 mg PO DAILY [facility] Last Admin: 01/20/17 10:48 Dose: 10 mg Enoxaparin Sodium (Lovenox -) 30 mg SQ DAILY [facility] Last Admin: 01/20/17 10:49 Dose: 30 mg Escitalopram Oxalate (Lexapro -) 20 mg PO DAILY [facility] Last Admin: 01/20/17 10:49 Dose: 20 mg Folic Acid/Iron (Folitab 500 Caplet -) 1 each PO DAILY [facility] Last Admin: 01/19/17 09:19 Dose: 1 each Ertapenem 1 gm/ Sodium (Chloride) 50 mls @ 50 mls/hr IVPB DAILY [facility] PRN Reason: Protocol Last Admin: 01/20/17 10:48 Dose: 50 mls/hr Lactobacillus Acidophilus (Bacid -) 1 tab PO DAILY [facility] Last Admin: 01/20/17 10:48 Dose: 1 tab Latanoprost (Xalatan 0.005% Eye Drops -) 1 drop OU HS [facility] Last Admin: 01/19/17 22:00 Dose: 1 drop Metoprolol Succinate (Toprol Xl -) 100 mg PO DAILY [facility] Last Admin: 01/20/17 08:40 Dose: 100 mg Multivitamins/Minerals/Vitamin C (Tab-A-Vit -) 1 tab PO DAILY [facility] Last Admin: 01/20/17 10:48 Dose: 1 tab Non-Formulary Medication (Aa/Hydrolyzed Collagen, Whey [Lps 15-30 Liquid]) 960 ml PO DAILY [facility] Nystatin (Nystatin Oral Suspension -) 500,000 units PO Q6HPO [facility] Last Admin: 01/20/17 06:12 Dose: 500,000 units Quetiapine Fumarate (Seroquel -) 25 mg PO HS [facility] Last Admin: 01/19/17 21:59 Dose: 25 mg - Objective Vital Signs: Vital Signs Temperature 98.4 F 01/20/17 05:54 Pulse Rate 92 H 01/20/17 05:54 Respiratory Rate 18 01/20/17 05:54 Blood Pressure 120/73 01/20/17 05:54 O2 Sat by Pulse Oximetry (%) 97 01/19/17 08:00 Constitutional: Yes: No Distress, Calm, Thin Neck: Yes: Supple Cardiovascular: Yes: Pulse Irregular Respiratory: Yes: Regular, Diminished Gastrointestinal: Yes: Normal Bowel Sounds, Soft Edema: No Labs: CBC, BMP 01/20/17 05:30 01/20/17 05:30 INR, PTT INR 1.12 (0.82-1.09) 01/15/17 14:30 Problem List - Problems (1) Colouterine fistula Code(s): N82.8 - OTHER FEMALE GENITAL TRACT FISTULAE (2) Syncope Code(s): R55 - SYNCOPE AND COLLAPSE Qualifiers: Syncope type: unspecified Qualified Code(s): R55 - Syncope and collapse (3) CAD (coronary artery disease) Code(s): I25.10 - ATHSCL HEART DISEASE OF [place] CORONARY ARTERY W/O ANG PCTRS Qualifiers: Coronary Disease-Associated Artery/Lesion type: [place] artery [place] vs. transplanted heart: [place] heart Associated angina: without angina Qualified Code(s): I25.10 - Atherosclerotic heart disease of [place] coronary artery without angina pectoris (4) Dementia Code(s): F03.90 - UNSPECIFIED DEMENTIA WITHOUT BEHAVIORAL DISTURBANCE Qualifiers: Dementia type: unspecified type Dementia behavioral disturbance: with behavioral disturbance Qualified Code(s): F03.91 - Unspecified dementia with behavioral disturbance (5) History of hemiarthroplasty of left hip Code(s): Z96.642 - PRESENCE OF LEFT ARTIFICIAL HIP JOINT (6) Hx of CABG Code(s): Z95.1 - PRESENCE OF AORTOCORONARY BYPASS GRAFT (7) Hyperlipidemia Code(s): E78.5 - HYPERLIPIDEMIA, UNSPECIFIED Qualifiers: Hyperlipidemia type: pure hypercholesterolemia (8) Hypertension Code(s): I10 - ESSENTIAL (PRIMARY) HYPERTENSION Qualifiers: Hypertension type: essential hypertension Qualified Code(s): I10 - Essential (primary) hypertension (9) Paroxysmal atrial fibrillation Code(s): I48.0 - PAROXYSMAL ATRIAL FIBRILLATION Assessment/Plan Echocardiography performed yesterday noted no change from study dated 07/30/15 normal LV size and function, AV sclerosis, MAC, mild MR and mild TR 1. Syncope probably neuro-cardiogenic syncope, vasodepressor vs. cardio- inhibitory, unlikely to be vaso-vagal 2. CAD post CABG angina pectoris, stable 3. 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 Paroxysmal atrial fibrillation with recurrence [id number] score of 6 currently in sinus rhythm not on A/C therapy high risk A/C patient (history of dementia, fall risk and history of gastro-intestinal bleed) 5. HTN 6. Hyperlipidemia 7. Organic brain syndrome/Dementia 8. Rectal bleed 9. CKD 10. History of fall with left femoral neck fracture post ORIF 11. Suspect colouterine fistula, UTI PLAN: 1. Continue Toprol XL 100 qd, may need to uptitrate as hemodynamics tolerate, check EKG 2. Continue Lipitor 40 qhs 3. Ideally patient should on A/C therapy considering the above noted history of paroxysmal atrial fibrillation with [id number] score of 6 unless it is absolutely contraindicated, as outlined above not an appropriate candidate for A /C, continue Plavix 75 qd, DVT prophylaxis 4. Avoid vasodilators 5. Complete abx course
[2017-01-20] MEDS ORDERED: PT OWN MED DRAWER 7, Y5N ONE ×2 (12:35→22:32)
[2017-01-20] MEDS: dilTIAZem HCL 30 MG TABLET (FP) PO SCH ×3 (12:48→22:44)
[2017-01-20] MEDS ORDERED: dilTIAZem HCL 50 MG/10 ML - 10 ML VIAL IVPUSH ONE (13:45)
--- NOTE | 2017-01-20 16:11 | PN ---
Progress Note, Physician History of Present Illness: patients events noted patient went into rapid afib cardizem given\ patient currently in sinus still continues to be confused thrush better - Current Medication List Current Medications: Active Medications Acetaminophen (Tylenol -) 650 mg PO Q4H PRN PRN Reason: FEVER OR PAIN Ascorbic Acid (Vitamin C -) 500 mg PO DAILY [facility] Last Admin: 01/20/17 10:48 Dose: 500 mg Atorvastatin Calcium (Lipitor -) 40 mg PO HS [facility] Last Admin: 01/19/17 21:59 Dose: 40 mg Atropine Sulfate (Atropine 1% Ophth. Solution -) 1 drop OU BID [facility] Last Admin: 01/20/17 10:51 Dose: 1 drop Clopidogrel Bisulfate (Plavix -) 75 mg PO DAILY [facility] Last Admin: 01/20/17 10:48 Dose: 75 mg Diltiazem HCl (Cardizem -) 30 mg PO TID [facility] Last Admin: 01/20/17 12:48 Dose: 30 mg Docusate Sodium (Colace -) 100 mg PO BID [facility] Last Admin: 01/20/17 10:48 Dose: 100 mg Donepezil HCl (Aricept -) 10 mg PO DAILY [facility] Last Admin: 01/20/17 10:48 Dose: 10 mg Enoxaparin Sodium (Lovenox -) 30 mg SQ DAILY [facility] Last Admin: 01/20/17 10:49 Dose: 30 mg Escitalopram Oxalate (Lexapro -) 20 mg PO DAILY [facility] Last Admin: 01/20/17 10:49 Dose: 20 mg Folic Acid/Iron (Folitab 500 Caplet -) 1 each PO DAILY [facility] Last Admin: 01/20/17 11:20 Dose: 1 each Ertapenem 1 gm/ Sodium (Chloride) 50 mls @ 50 mls/hr IVPB DAILY [facility] PRN Reason: Protocol Last Admin: 01/20/17 10:48 Dose: 50 mls/hr Lactobacillus Acidophilus (Bacid -) 1 tab PO DAILY [facility] Last Admin: 01/20/17 10:48 Dose: 1 tab Latanoprost (Xalatan 0.005% Eye Drops -) 1 drop OU HS [facility] Last Admin: 01/19/17 22:00 Dose: 1 drop Metoprolol Succinate (Toprol Xl -) 100 mg PO DAILY [facility] Last Admin: 01/20/17 11:20 Dose: Not Given Multivitamins/Minerals/Vitamin C (Tab-A-Vit -) 1 tab PO DAILY [facility] Last Admin: 01/20/17 10:48 Dose: 1 tab Nystatin (Nystatin Oral Suspension -) 500,000 units PO Q6HPO [facility] Last Admin: 01/20/17 12:49 Dose: 500,000 units Quetiapine Fumarate (Seroquel -) 25 mg PO HS [facility] Last Admin: 01/19/17 21:59 Dose: 25 mg - Objective Vital Signs: Vital Signs Temperature 98.1 F 01/20/17 14:15 Pulse Rate 69 01/20/17 14:20 Respiratory Rate 20 01/20/17 14:20 Blood Pressure 109/59 01/20/17 14:20 O2 Sat by Pulse Oximetry (%) 95 01/20/17 09:00 Constitutional: Yes: Calm, Anxious Cardiovascular: Yes: Regular Rate and Rhythm Respiratory: Yes: Regular, CTA Bilaterally Gastrointestinal: Yes: Normal Bowel Sounds, Soft Musculoskeletal: Yes: WNL Extremities: Yes: WNL Neurological: Yes: Alert, Confusion Psychiatric: Yes: Alert Labs: CBC, BMP 01/20/17 05:30 01/20/17 05:30 INR, PTT INR 1.12 (0.82-1.09) 01/15/17 14:30 Assessment/Plan Problem List - Problems (1) Syncope Code(s): R55 - SYNCOPE AND COLLAPSE Qualifiers: Syncope type: unspecified Qualified Code(s): R55 - Syncope and collapse (2) CVA (cerebral vascular accident) Code(s): I63.9 - CEREBRAL INFARCTION, UNSPECIFIED (3) Afib Code(s): I48.91 - UNSPECIFIED ATRIAL FIBRILLATION Qualifiers: Atrial fibrillation type: paroxysmal Qualified Code(s): I48.0 - Paroxysmal atrial fibrillation (4) CAD (coronary artery disease) Code(s): I25.10 - ATHSCL HEART DISEASE OF [place] CORONARY ARTERY W/O ANG PCTRS Qualifiers: (5) Dementia Code(s): F03.90 - UNSPECIFIED DEMENTIA WITHOUT BEHAVIORAL DISTURBANCE (6) Hyperlipidemia Code(s): E78.5 - HYPERLIPIDEMIA, UNSPECIFIED Qualifiers: (7) Hypertension Code(s): I10 - ESSENTIAL (PRIMARY) HYPERTENSION 8 uti thrush plan conitnue current mgmt as per cardio primary team
--- NOTE | 2017-01-20 16:21 | EKG ---
Test Reason : Blood Pressure : / mmHG Vent. Rate : 150 BPM Atrial Rate : 174 BPM P-R Int : 000 ms QRS Dur : 082 ms QT Int : 308 ms P-R-T Axes : 000 -67 010 degrees QTc Int : 486 ms ATRIAL FIBRILLATION WITH RAPID VENTRICULAR RESPONSE LEFT AXIS DEVIATION PULMONARY DISEASE PATTERN INFERIOR INFARCT (CITED ON OR BEFORE 20-APR-2016) ABNORMAL ECG WHEN COMPARED WITH ECG OF 15-JAN-2017 14:14, ATRIAL FIBRILLATION HAS REPLACED SINUS RHYTHM VENT. RATE HAS INCREASED BY [address] NOW DEPRESSED IN ANTERIOR LEADS Confirmed by NÉSTOR CHAVEZ MD ([id number]) on 01/20/2017 4:20:59 PM Referred By: FADUMO IGNACIO Confirmed By:NÉSTOR CHAVEZ MD
[2017-01-20] MEDS: QUEtiapine FUMARATE 25 MG TABLET (FP) PO SCH (22:44)
[2017-01-20] MEDS: ATORVASTATIN CA 40 MG TABLET (FP) PO SCH (22:44)
[2017-01-20] MEDS: LATANOPROST 0.005% OPHTH SOLN 2.5ML BOTTLE OU SCH (22:44)
[2017-01-21] MEDS: NYSTATIN 500,000 UNITS/5 ML SUSPENSION PO SCH ×4 (00:30→17:52)
[2017-01-21] MEDS: dilTIAZem HCL 30 MG TABLET (FP) PO SCH (06:17)
[2017-01-21 07:46] LABS: ANION GAP 17 (8-16); CALCIUM 8.3 mg/dL (8.5-10.1); CO2 21 mmol/L (21-32); GLUCOSE,RANDOM 91 mg/dL (74-106)
[2017-01-21 07:48] LABS: CREATININE 0.7 mg/dL (0.55-1.02)
[2017-01-21 08:10] LABS: MCH 28.9 pg (25.7-33.7); MCHC 32.6 g/dl (32.0-36.0); MEAN CELL VOLUME 88.7 fl (80-96); MEAN PLT VOLUME 7.8 fl (7.5-11.1); PLATELET COUNT 252 K/MM3 (134-434); RDW 15.4 % (11.6-15.6); WHITE BLOOD COUNT 21.3 K/mm3 (4.0-10.0)
[2017-01-21] MEDS ORDERED: guaiFENesin 200 MG/10 ML 10 ML UNIT-DOSE CUPS PO PRN (08:38)
--- NOTE | 2017-01-21 08:48 | PN ---
Progress Note (short form) - Note Progress Note: Patient seems very congested this AM with cough and raspy voice. CXR yesterday no acute finding but WBC up to 21,000. On IV antibiotics for UTI. ? aspiration; will repeat CXR and get Pulmonary consult; add Chest PT, increase nasal O2 and reconsult Laurence Muñoz. She may need Aerosol Rx but had rapid A. Fib yesterday.Her one family member her brother has told me several times he wants to make no decisions for her. On Exam: Vital Signs Temp 98.4 F 01/21/17 05:56 Pulse 92 H 01/21/17 05:56 Resp 20 01/21/17 05:56 BP 100/77 01/21/17 05:56 Pulse Ox 92 L 01/20/17 21:00 Intake & Output 01/20/17 01/20/17 01/21/17 11:59 23:59 11:59 Intake Total 0 170 10 Balance 0 170 10 Weight 98 lb 3 oz 96 lb 8 oz Intake: IV 10 SALINE LOCK 10 IVPB 0 50 Oral 120 Other: Voiding Method Incontinent Incontinent # Unmeasured Voids Void 1 Weight Measurement Method Built in Bedscale Standing Scale Alert coughing Hoarse Chest: Right and left Rhonchi Abd: Soft Ext:No edema Abnormal Lab Results 01/21/17 01/21/17 05:35 05:35 WBC 21.3 H D Anion Gap 17 H BUN 22 H D Calcium 8.3 L IMP: Acute Bronchitis ?Aspiration Rapid A. Fib now NSR Thrush on Rx Dementia ASHD S/P CABG Acute UTI on Rx. Plan: Chest PT Speech therapist Repeat CXR ?Aerosol with A. Fib ? 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 (3) UTI (urinary tract infection) Code(s): N39.0 - URINARY TRACT INFECTION, SITE NOT SPECIFIED Qualifiers: Urinary tract infection type: acute cystitis Hematuria presence: without hematuria Qualified Code(s): N30.00 - Acute cystitis without hematuria (4) Afib Code(s): I48.91 - UNSPECIFIED ATRIAL FIBRILLATION Qualifiers: Atrial fibrillation type: paroxysmal Qualified Code(s): I48.0 - Paroxysmal atrial fibrillation (5) CAD (coronary artery disease) Code(s): I25.10 - ATHSCL HEART DISEASE OF [place] CORONARY ARTERY W/O ANG PCTRS Qualifiers: Coronary Disease-Associated Artery/Lesion type: [place] artery [place] vs. transplanted heart: [place] heart Associated angina: without angina Qualified Code(s): I25.10 - Atherosclerotic heart disease of [place] coronary artery without angina pectoris (6) Fall Code(s): W19.XXXA - UNSPECIFIED FALL, INITIAL ENCOUNTER Qualifiers: Encounter type: initial encounter Qualified Code(s): W19.XXXA - Unspecified fall, initial encounter
[2017-01-21] MEDS: METOPROLOL SUCCINATE 100 MG TAB.SR.24H (FP) PO SCH (09:25)
[2017-01-21] MEDS: MULTIVITAMINS (DAILY MVI) TABLET (FP) PO SCH ×2 (09:25→11:34)
[2017-01-21] MEDS: DONEPEZIL HCL 10 MG TABLET (FP) PO SCH ×2 (09:25→11:33)
[2017-01-21] MEDS: DOCUSATE SODIUM 100 MG CAPSULE (FP) PO SCH ×2 (09:25→11:33)
[2017-01-21] MEDS: CLOPIDOGREL BISULFATE 75 MG TABLET (FP) PO SCH ×2 (09:25→11:34)
[2017-01-21] MEDS: LACTOBACILLUS ACIDOPHILUS 1 EACH TAB (FP) PO SCH (09:25)
[2017-01-21] MEDS: ASCORBIC ACID 500 MG TABLET (FP) PO SCH ×2 (09:26→11:34)
[2017-01-21] MEDS: ENOXAPARIN NA (PORCINE) 30 MG/0.3 ML DISP.SYRIN SQ SCH (09:26)
[2017-01-21] MEDS: FERROUS SO4/VIT C/FA 1 EACH TABLET.ER PO SCH ×2 (09:26→11:33)
[2017-01-21] MEDS: ESCITALOPRAM OXALATE 20 MG TABLET (FP) PO SCH ×2 (09:26→11:34)
[2017-01-21] MEDS ORDERED: PT OWN MED DRAWER 7, Y5N ONE ×2 (09:29→21:22)
[2017-01-21] MEDS: ATROPINE SO4 1% OPHTH SOLN 5 ML BOTTLE OU SCH ×2 (09:30→21:27)
--- NOTE | 2017-01-21 09:46 | PN ---
Progress Note, Physician History of Present Illness: Transferred to telemetry for rapid afib, spontaneously cardioverted with Cardizem IV and has remained in sinus since then. - Current Medication List Current Medications: Active Medications Acetaminophen (Tylenol -) 650 mg PO Q4H PRN PRN Reason: FEVER OR PAIN Ascorbic Acid (Vitamin C -) 500 mg PO DAILY [facility] Last Admin: 01/21/17 09:26 Dose: 500 mg Atorvastatin Calcium (Lipitor -) 40 mg PO HS [facility] Last Admin: 01/20/17 22:44 Dose: 40 mg Atropine Sulfate (Atropine 1% Ophth. Solution -) 1 drop OU BID [facility] Last Admin: 01/21/17 09:30 Dose: 1 drop Clopidogrel Bisulfate (Plavix -) 75 mg PO DAILY [facility] Last Admin: 01/21/17 09:25 Dose: 75 mg Diltiazem HCl (Cardizem -) 30 mg PO TID [facility] Last Admin: 01/21/17 06:17 Dose: 30 mg Docusate Sodium (Colace -) 100 mg PO BID [facility] Last Admin: 01/21/17 09:25 Dose: 100 mg Donepezil HCl (Aricept -) 10 mg PO DAILY [facility] Last Admin: 01/21/17 09:25 Dose: 10 mg Enoxaparin Sodium (Lovenox -) 30 mg SQ DAILY [facility] Last Admin: 01/21/17 09:26 Dose: 30 mg Escitalopram Oxalate (Lexapro -) 20 mg PO DAILY [facility] Last Admin: 01/21/17 09:26 Dose: 20 mg Folic Acid/Iron (Folitab 500 Caplet -) 1 each PO DAILY [facility] Last Admin: 01/21/17 09:26 Dose: 1 each Guaifenesin (Robitussin -) 10 ml PO Q4H PRN PRN Reason: COUGH Ertapenem 1 gm/ Sodium (Chloride) 50 mls @ 50 mls/hr IVPB DAILY [facility] PRN Reason: Protocol Last Admin: 01/20/17 10:48 Dose: 50 mls/hr Lactobacillus Acidophilus (Bacid -) 1 tab PO DAILY [facility] Last Admin: 01/21/17 09:25 Dose: 1 tab Latanoprost (Xalatan 0.005% Eye Drops -) 1 drop OU HS [facility] Last Admin: 01/20/17 22:44 Dose: 1 drop Metoprolol Succinate (Toprol Xl -) 100 mg PO DAILY [facility] Last Admin: 01/21/17 09:25 Dose: 100 mg Multivitamins/Minerals/Vitamin C (Tab-A-Vit -) 1 tab PO DAILY [facility] Last Admin: 01/21/17 09:25 Dose: 1 tab Nystatin (Nystatin Oral Suspension -) 500,000 units PO Q6HPO [facility] Last Admin: 01/21/17 06:17 Dose: 500,000 units Quetiapine Fumarate (Seroquel -) 25 mg PO HS [facility] Last Admin: 01/20/17 22:44 Dose: 25 mg - Objective Vital Signs: Vital Signs Temperature 98.4 F 01/21/17 05:56 Pulse Rate 92 H 01/21/17 05:56 Respiratory Rate 20 01/21/17 05:56 Blood Pressure 100/77 01/21/17 05:56 O2 Sat by Pulse Oximetry (%) 92 L 01/20/17 21:00 Constitutional: Yes: No Distress, Calm Neck: Yes: Supple Cardiovascular: Yes: Regular Rate and Rhythm Respiratory: Yes: Regular, Diminished, Rhonchi Gastrointestinal: Yes: Normal Bowel Sounds, Soft Edema: No Labs: CBC, BMP 01/21/17 05:35 01/21/17 05:35 INR, PTT INR 1.12 (0.82-1.09) 01/15/17 14:30 - ....Imaging Chest X-ray: Report Reviewed (No new infiltrates) Problem List - Problems (1) 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 transplanted heart: [place] heart Associated angina: without angina Qualified Code(s): I25.10 - Atherosclerotic heart disease of [place] coronary artery without angina pectoris (4) Dementia Code(s): F03.90 - UNSPECIFIED DEMENTIA WITHOUT BEHAVIORAL DISTURBANCE Qualifiers: Dementia type: unspecified type Dementia behavioral disturbance: with behavioral disturbance Qualified Code(s): F03.91 - Unspecified dementia with behavioral disturbance; F10.97 - Alcohol use, unspecified with alcohol- induced persisting dementia (5) History of hemiarthroplasty of left hip Code(s): Z96.642 - PRESENCE OF LEFT ARTIFICIAL HIP JOINT (6) Hx of CABG Code(s): Z95.1 - PRESENCE OF AORTOCORONARY BYPASS GRAFT (7) Hyperlipidemia Code(s): E78.5 - HYPERLIPIDEMIA, UNSPECIFIED Qualifiers: Hyperlipidemia type: pure hypercholesterolemia Qualified Code(s): E78.00 - Pure hypercholesterolemia, unspecified; E78.0 - Pure hypercholesterolemia (8) Hypertension Code(s): I10 - ESSENTIAL (PRIMARY) HYPERTENSION Qualifiers: Hypertension type: essential hypertension Qualified Code(s): I10 - Essential (primary) hypertension (9) Paroxysmal atrial fibrillation Code(s): I48.0 - PAROXYSMAL ATRIAL FIBRILLATION (10) UTI (urinary tract infection) Code(s): N39.0 - URINARY TRACT INFECTION, SITE NOT SPECIFIED Qualifiers: Urinary tract infection type: acute cystitis Hematuria presence: without hematuria Qualified Code(s): N30.00 - Acute cystitis without hematuria (11) Leukocytosis Code(s): D72.829 - ELEVATED WHITE BLOOD CELL COUNT, UNSPECIFIED Qualifiers: Leukocytosis type: unspecified Qualified Code(s): D72.829 - Elevated white blood cell count, unspecified Assessment/Plan Echocardiography performed yesterday noted no change from study dated 07/30/15 normal LV size and function, AV sclerosis, MAC, mild MR and mild TR 1. Syncope probably neuro-cardiogenic syncope, vasodepressor vs. cardio- inhibitory, unlikely to be vaso-vagal 2. CAD post CABG angina pectoris, stable 3. 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 Paroxysmal atrial fibrillation with recurrence [id number] score of 6 currently in sinus rhythm not on A/C therapy high risk A/C patient (history of dementia, fall risk and history of gastro-intestinal bleed) 5. HTN 6. Hyperlipidemia 7. Organic brain syndrome/Dementia 8. Rectal bleed 9. CKD 10. History of fall with left femoral neck fracture post ORIF 11. 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 coli UTI, leukocytosis PLAN: 1. Change Cardizem CD 120 qd, d/c Toprol XL 2. Continue Lipitor 40 qhs 3. Ideally patient should on A/C therapy considering the above noted history of paroxysmal atrial fibrillation with [id number] score of 6 unless it is absolutely contraindicated, as outlined above not an appropriate candidate for A /C, continue Plavix 75 qd, DVT prophylaxis 4. Avoid vasodilators 5. Complete abx course, chest PT, O2 and BD as needed
--- NOTE | 2017-01-21 10:04 | CONSULT ---
Admitting History and Physical - Primary Care Physician PCP: Andre Branch - Admission History of Present Illness: Per Admission note: "Chief Complaint: I feel fine History of Present Illness: Ms Blount is an 89 year old female who comes in from [facility] with syncope. Per medical records, she was sitting eating lunch and became unresponsive. Attempts at arousal were unsuccessful and her blood pressure was checked and her SBP was found to be in the 60's. ." Pt has been on a reg diet/thin liquids. Pt is on a chopped diet and thin liquid at [place]. Pt noted to be very congested today with cough and raspy voice. Coughing and expectorating copious green secretions as reported by nursing and thick coated thrush on tongue. CXR yesterday no acute finding but WBC up to 21,000. On IV antibiotics for UTI. Swallowing evaluation placed for concern of aspiration. Selected Entries 01/19/17 01/19/17 01/20/17 11:54 18:00 02:00 Breakfast 25% Supper 0 Temperature 98.9 F 01/20/17 01/20/17 01/20/17 05:54 09:00 14:15 Breakfast Supper Temperature 98.4 F 99.1 F 98.1 F 01/20/17 01/20/17 01/20/17 17:00 19:28 21:00 Breakfast Supper 0 Temperature 98.2 F 98.4 F 01/21/17 01/21/17 01:00 05:56 Breakfast Supper Temperature 98.4 F 98.4 F Laboratory Tests 01/20/17 01/21/17 05:30 05:35 WBC 8.6 21.3 H D This is my first consultation with this pt. I saw this pt after nursing had suctioned pt repeatedly for copious secretions. There was severe vocal wetness as she attempted to speak. Nursing again suctioned pt oropharyngeally, with more secretions cleared. Once suctioned, vocal quality was euphonic, no longer wet. 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 Cardiovascular: Yes: AFIB ((no lngwer on coumadin)), CAD, HTN, Hyperlipdemia Gastrointestinal: Yes: GI Bleed, Other (colon polyps) Renal/: Yes: Cancer (bladder tumor) Heme/Onc: Yes: Anemia Psych: Yes: Anxiety, Depression - Past Surgical History Past Surgical History: Yes: Nephrectomy, CABG - Smoking History Smoking history: Former smoker Have you smoked in the past 12 months: No Aproximately how many cigarettes per day: 0 If you are a former smoker, when did you quit?: 2007 - Alcohol/Substance Use Hx Alcohol Use: No History of Substance Use: reports: None - Social History ADL: Support Services History of Recent Travel: No History - Admission Reason For Visit: SYNCOPE - Diagnostics X-ray: Report Reviewed - General Mental Status: Awake and Alert, Able to Follow Commands, Forgetful, Combative ( at times), Confused Attention: Distractible Ability to Follow Directions: Good Head/Neck Control: WFL - Hearing Hearing: Normal Hearing Aide: No With Patient: No Speech Evaluation - Communication Primary Language: [place] Communication: Yes: Simple Responses Oral Expression Ability: Yes: No Impairment - Speech Production Able to Make Needs Known: Yes: WNL Intelligibility: Yes: WNL - Speech Characteristics Voice Loudness: Normal Voice Pitch: Yes: Normal Voice Phonatory-based Quality: Yes: Normal, Vocal Wetness (intermittently,c/w aspiration) Speech Pattern: Normal Speech Clarity: < 100% Nasal Resonance: Normal Articulation: Yes: Precise - Language/Auditory Comprehension Follows: Yes: 1 Stage Simple Commands Observation: Able to respond to yes/no queries: Yes, Yes/No Confusion: No, Comprehends Conversational Speech: Yes (simple) - Language/Verbal Expression Functional Communication Status: Yes: WNL - Swallow Evaluation/Bedside Assessment Current Nutritional Intake: Regular, Thin Liquids Oral Secretions: Yes: Tongue Coated (black thick coating), Copious Secretions ( intermittently, with gurgly vocal wetness, with copious pooling of secretions visible in posterior pharynx) Facial Symmetry at Rest: Symmetrical Facial Symmetry on Retraction: Symmetrical Against Resistance Opening: Normal Against Resistance Closing: Normal Pucker Lips: Normal Smile: Normal Lingual Movement: Normal, Symmetric Lingual Speed of Movement: Normal Velopharyngeal Movement: Normal Laryngeal Movement: Able to Palpate, Reduced Excursion, Labored,delay initiation , Reduced Velocity Labial Seal: WFL Oral Prep Time: WFL A-P Transit: WFL Timing of Swallow: Delayed Coughing/Throat Clear: Yes Change in Voice: Yes Recommendations - Speech Evaluation, Impression/Plan Impression: vocal wetness intermittently with pooling of secretions in posterior pharynx c/w aspiration. Tongue with black thick coating. Once suctioned, voice is euphonic. - Dysphagia Impressions/Plan Swallowing Skills: Impaired Dysphagia Impressions: Severe Impairment, Ongoing Evaluation, Suspect Aspiration *Silent aspiration: cannot be R/O at bedside Dysphagia Treatment Plan: Other (mouth care) Recommendations: MBS w Esophagus (npo until mbs. Presently, fluoroscopy equipment is down, being repaired.) - Recommendations Diet Consistency: NPO, Other (strict npo, including medication HOB elevated, suction PRN, especially if voice is gurgly and wet) Liquids: NPO
[2017-01-21] MEDS: ERTAPENEM SODIUM 1 GM in SODIUM CHLORIDE 50 ML IVPB SCH (10:32)
--- NOTE | 2017-01-21 12:57 | CON.PULM ---
Consult Consult Specialty:: PULMONARY Referred by:: Dr. Mosley Reason for Consultation:: shortness of breath - History of Present Illness Chief Complaint: syncope History of Present Illness: 89yo female with h/o HTN, hyperlipidemia, CAD, atrial fibrillation, h/o GI bleed , dementia who was sent from the senior living for syncopal episode. Noted to be hypotensive and improved with IVF resuscitation. Being treated for ESBL E Coli UTI with antibiotics. Overnight was in rapid atrial fibrillation, transferred to telemetry and converted to sinus with cardizem. Today became more short of breath, was noted to be coughing while eating, now NPO. Asking for food. No fevers recorded but with an increase in her WBC. Pt is a poor historian, unable to provide reliable history but currently denies short of breath, does report a nonproductive cough. She is a remote smoker. 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: Dementia Cardio/Vascular: Yes: AFIB ((no lngwer on coumadin)), CAD, HTN, Hyperlipdemia Gastrointestinal: Yes: GI Bleed, Other (colon polyps) Renal/: Yes: Cancer (bladder tumor) Psych: Yes: Anxiety, Depression - Past Surgical History Past Surgical History: Yes: Nephrectomy, CABG Additional Surgical History: ORIF - Alcohol/Substance Use Hx Alcohol Use: No History of Substance Use: reports: None - Smoking History Smoking history: Former smoker Have you smoked in the past 12 months: No Aproximately how many cigarettes per day: 0 If you are a former smoker, when did you quit?: 2007 - Social History Usual Living Arrangement: Alone ADL: Support Services History of Recent Travel: No Home Medications - Allergies Allergies/Adverse Reactions: Allergies Allergy/AdvReac Type Severity Reaction Status Date / Time aspirin Allergy Verified 01/15/17 14:26 - Home Medications Home Medications: Ambulatory Orders Aa/Hydrolyzed Collagen, Whey [Lps 15-30 Liquid] 960 ml PO DAILY 07/09/16 Acetaminophen [Tylenol] 650 mg PO QID 07/09/16 Ascorbate Calcium [Vitamin C] 500 mg PO DAILY 07/09/16 Atorvastatin Ca [Lipitor] 40 mg PO HS 07/09/16 Atropine 1% Ophth. Solution - 0 drop OU BID 07/09/16 Collagenase Clostridium Hist. [Santyl] 1 applic TP DAILY 07/09/16 Docusate Sodium 100 mg PO BID 07/09/16 Donepezil HCl [Aricept] 10 mg PO DAILY 07/09/16 Enoxaparin [Lovenox -] 30 mg SQ DAILY 07/09/16 Escitalopram Oxalate [Lexapro -] 20 mg PO DAILY 07/09/16 Ferrous Sulfate/Vit C/FA [Folitab 500 Caplet] 1 each PO DAILY 07/09/16 Lactobacillus Acidophilus [Bacid -] 1 each PO DAILY 07/09/16 Latanoprost 0.005% Eye Drops [Xalatan 0.005% Eye Drops -] 1 drop HS 07/09/16 Metoprolol Succinate [Toprol Xl] 100 mg PO DAILY 07/09/16 Multivitamin [Poly-Vitamin] 1 each PO DAILY 07/09/16 Nystatin 100,000 unit PO TID 07/09/16 Oxycodone HCl 5 mg PO QID 07/09/16 Quetiapine Fumarate [Seroquel -] 25 mg PO HS 07/09/16 Family Disease History - Family Disease History Family Disease History: Heart Disease: Mother Review of Systems Unable to obtain ROS, reason: pt poor historian Physical Exam Vital Sings: Vital Signs Temperature 98.2 F 01/21/17 10:00 Pulse Rate 89 01/21/17 10:00 Respiratory Rate 20 01/21/17 10:00 Blood Pressure 102/74 01/21/17 10:00 O2 Sat by Pulse Oximetry (%) 95 01/21/17 10:00 Constitutional: Yes: Anxious Eyes: Yes: Conjunctiva Clear, EOM Intact HENT: Yes: Atraumatic, Normocephalic Neck: Yes: Supple, Trachea Midline Cardiovascular: Yes: Pulse Irregular Respiratory: Yes: Rhonchi (scattered) ...Clubbing: No Gastrointestinal: Yes: Normal Bowel Sounds, Soft. No: Tenderness Edema: No Neurological: Yes: Confusion Labs: CBC, BMP 01/21/17 05:35 01/21/17 05:35 Imaging - Results Chest X-ray: Report Reviewed, Image Reviewed (no infiltrates) Problem List - Problems (1) Syncope Code(s): R55 - SYNCOPE AND COLLAPSE Qualifiers: Syncope type: unspecified Qualified Code(s): R55 - Syncope and collapse (2) UTI (urinary tract infection) Code(s): N39.0 - URINARY TRACT INFECTION, SITE NOT SPECIFIED Qualifiers: Urinary tract infection type: acute cystitis Hematuria presence: without hematuria Qualified Code(s): N30.00 - Acute cystitis without hematuria (3) Afib Code(s): I48.91 - UNSPECIFIED ATRIAL FIBRILLATION Qualifiers: Atrial fibrillation type: paroxysmal Qualified Code(s): I48.0 - Paroxysmal atrial fibrillation (4) CAD (coronary artery disease) Code(s): I25.10 - ATHSCL HEART DISEASE OF [place] CORONARY ARTERY W/O ANG PCTRS Qualifiers: Coronary Disease-Associated Artery/Lesion type: [place] artery [place] vs. transplanted heart: [place] heart Associated angina: without angina Qualified Code(s): I25.10 - Atherosclerotic heart disease of [place] coronary artery without angina pectoris (5) Dementia Code(s): F03.90 - UNSPECIFIED DEMENTIA WITHOUT BEHAVIORAL DISTURBANCE Qualifiers: Dementia type: unspecified type Dementia behavioral disturbance: with behavioral disturbance Qualified Code(s): F03.91 - Unspecified dementia with behavioral disturbance; F10.97 - Alcohol use, unspecified with alcohol- induced persisting dementia Assessment/Plan Syncope Acute on Chronic Diastolic Heart Failure CAD s/p CABG Paroxysmal Atrial Fibrillation ESBL E Coli UTI HTN h/o GI Bleed CKD Dementia - do not suspect acute pneumonia, continue antibiotics for UTI - f/u repeat cultures - aspiration precautions - monitor WBC count, may have been from leukemoid response - O2 to keep SpO2 >90% - inhaled bronchodilators - rate/rhythm control - DVT prophylaxis Thank you for this consult Michael Coe MD
[2017-01-21 13:46] LABS: PLATELET ESTIMATE ADEQUATE
[2017-01-21] MEDS ORDERED: methylPREDNISolone NA SUCC 125 MG/2 ML VIAL ONE (14:04)
[2017-01-21] MEDS ORDERED: ACETAMINOPHEN 500 MG TABLET (FP) PO PRN (14:11)
[2017-01-21] MEDS ORDERED: ACETAMINOPHEN 650 MG SUPP.RECT PR PRN (15:51)
[2017-01-21] MEDS: dilTIAZem HCL 50 MG/10 ML - 10 ML VIAL IVPUSH PRN (16:40)
--- NOTE | 2017-01-21 16:43 | PN ---
Progress Note, Physician History of Present Illness: patients events noted patient with increased heart rate was given cardizem - Current Medication List Current Medications: Active Medications Acetaminophen (Tylenol -) 500 mg PO Q6H PRN PRN Reason: FEVER OR PAIN Acetaminophen (Tylenol Suppository -) 650 mg MS Q4H PRN PRN Reason: FEVER OR PAIN Atropine Sulfate (Atropine 1% Ophth. Solution -) 1 drop OU BID [facility] Last Admin: 01/21/17 09:30 Dose: 1 drop Diltiazem HCl (Cardizem Injection -) 10 mg IVPUSH Q6H PRN Enoxaparin Sodium (Lovenox -) 30 mg SQ DAILY [facility] Last Admin: 01/21/17 09:26 Dose: 30 mg Guaifenesin (Robitussin -) 10 ml PO Q4H PRN PRN Reason: COUGH Ertapenem 1 gm/ Sodium (Chloride) 50 mls @ 50 mls/hr IVPB DAILY [facility] PRN Reason: Protocol Last Admin: 01/21/17 10:32 Dose: 50 mls/hr Latanoprost (Xalatan 0.005% Eye Drops -) 1 drop OU HS [facility] Last Admin: 01/20/17 22:44 Dose: 1 drop Nystatin (Nystatin Oral Suspension -) 500,000 units PO Q6HPO [facility] Last Admin: 01/21/17 11:59 Dose: 500,000 units - Objective Vital Signs: Vital Signs Temperature 98.6 F 01/21/17 14:00 Pulse Rate 79 01/21/17 14:00 Respiratory Rate 20 01/21/17 14:00 Blood Pressure 108/61 01/21/17 14:00 O2 Sat by Pulse Oximetry (%) 95 01/21/17 10:00 Constitutional: Yes: No Distress, Calm Cardiovascular: Yes: Regular Rate and Rhythm Respiratory: Yes: Regular, Rhonchi, Other (rales) Gastrointestinal: Yes: Normal Bowel Sounds, Soft Musculoskeletal: Yes: WNL Extremities: Yes: WNL Neurological: Yes: Alert, Oriented Psychiatric: Yes: Alert Labs: CBC, BMP 01/21/17 05:35 01/21/17 05:35 INR, PTT INR 1.12 (0.82-1.09) 01/15/17 14:30 Assessment/Plan Problem List - Problems (1) Syncope Code(s): R55 - SYNCOPE AND COLLAPSE Qualifiers: Syncope type: unspecified Qualified Code(s): R55 - Syncope and collapse (2) CVA (cerebral vascular accident) Code(s): I63.9 - CEREBRAL INFARCTION, UNSPECIFIED (3) Afib Code(s): I48.91 - UNSPECIFIED ATRIAL FIBRILLATION Qualifiers: Atrial fibrillation type: paroxysmal Qualified Code(s): I48.0 - Paroxysmal atrial fibrillation (4) CAD (coronary artery disease) Code(s): I25.10 - ATHSCL HEART DISEASE OF [place] CORONARY ARTERY W/O ANG PCTRS Qualifiers: (5) Dementia Code(s): F03.90 - UNSPECIFIED DEMENTIA WITHOUT BEHAVIORAL DISTURBANCE (6) Hyperlipidemia Code(s): E78.5 - HYPERLIPIDEMIA, UNSPECIFIED Qualifiers: (7) Hypertension Code(s): I10 - ESSENTIAL (PRIMARY) HYPERTENSION 8 uti thrush plan conitnue current mgmt as per cardio primary team i dont know if touch of lasix will help once bp is stabilized
[2017-01-21] MEDS ORDERED: dilTIAZem HCL 125 MG/25 ML - 5 ML VIAL IVPUSH PRN (18:48)
[2017-01-21] MEDS ORDERED: SODIUM CHLORIDE 500 ML IV ONE (19:00)
[2017-01-21] MEDS: LATANOPROST 0.005% OPHTH SOLN 2.5ML BOTTLE OU SCH (21:27)
[2017-01-22] MEDS: NYSTATIN 500,000 UNITS/5 ML SUSPENSION PO SCH ×4 (00:37→18:23)
--- NOTE | 2017-01-22 07:44 | PN ---
Progress Note, Physician History of Present Illness: Maintained in SR on Cardizem IV, aspiration suspected, placed NPO pending MBS. Episodes of confusion. - Current Medication List Current Medications: Active Medications Acetaminophen (Tylenol -) 500 mg PO Q6H PRN PRN Reason: FEVER OR PAIN Acetaminophen (Tylenol Suppository -) 650 mg ND Q4H PRN PRN Reason: FEVER OR PAIN Atropine Sulfate (Atropine 1% Ophth. Solution -) 1 drop OU BID [facility] Last Admin: 01/21/17 21:27 Dose: 1 drop Diltiazem HCl (Cardizem Injection -) 10 mg IVPUSH Q6H PRN Last Admin: 01/21/17 16:40 Dose: 10 mg Enoxaparin Sodium (Lovenox -) 30 mg SQ DAILY [facility] Last Admin: 01/21/17 09:26 Dose: 30 mg Guaifenesin (Robitussin -) 10 ml PO Q4H PRN PRN Reason: COUGH Ertapenem 1 gm/ Sodium (Chloride) 50 mls @ 50 mls/hr IVPB DAILY [facility] PRN Reason: Protocol Last Admin: 01/21/17 10:32 Dose: 50 mls/hr Latanoprost (Xalatan 0.005% Eye Drops -) 1 drop OU HS [facility] Last Admin: 01/21/17 21:27 Dose: 1 drop Nystatin (Nystatin Oral Suspension -) 500,000 units PO Q6HPO [facility] Last Admin: 01/22/17 05:45 Dose: 500,000 units - Objective Vital Signs: Vital Signs Temperature 98 F 01/22/17 07:04 Pulse Rate 81 01/22/17 07:04 Respiratory Rate 20 01/22/17 07:04 Blood Pressure 119/54 01/22/17 07:04 O2 Sat by Pulse Oximetry (%) 93 L 01/22/17 07:04 Constitutional: Yes: No Distress, Calm Neck: Yes: Supple Cardiovascular: Yes: Regular Rate and Rhythm Respiratory: Yes: Regular, Diminished Gastrointestinal: Yes: Normal Bowel Sounds, Soft Edema: No Labs: CBC, BMP 01/21/17 05:35 01/21/17 05:35 INR, PTT INR 1.12 (0.82-1.09) 01/15/17 14:30 - ....Imaging EKG: Report Reviewed (Tele: PAF->SR) Problem List - Problems (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 transplanted heart: [place] heart Associated angina: without angina Qualified Code(s): I25.10 - Atherosclerotic heart disease of [place] coronary artery without angina pectoris (4) Dementia Code(s): F03.90 - UNSPECIFIED DEMENTIA WITHOUT BEHAVIORAL DISTURBANCE Qualifiers: Dementia type: unspecified type Dementia behavioral disturbance: with behavioral disturbance Qualified Code(s): F03.91 - Unspecified dementia with behavioral disturbance; F10.97 - Alcohol use, unspecified with alcohol- induced persisting dementia (5) History of hemiarthroplasty of left hip Code(s): Z96.642 - PRESENCE OF LEFT ARTIFICIAL HIP JOINT (6) Hx of CABG Code(s): Z95.1 - PRESENCE OF AORTOCORONARY BYPASS GRAFT (7) Hyperlipidemia Code(s): E78.5 - HYPERLIPIDEMIA, UNSPECIFIED Qualifiers: Hyperlipidemia type: pure hypercholesterolemia Qualified Code(s): E78.00 - Pure hypercholesterolemia, unspecified; E78.0 - Pure hypercholesterolemia (8) Hypertension Code(s): I10 - ESSENTIAL (PRIMARY) HYPERTENSION Qualifiers: Hypertension type: essential hypertension Qualified Code(s): I10 - Essential (primary) hypertension (9) Paroxysmal atrial fibrillation Code(s): I48.0 - PAROXYSMAL ATRIAL FIBRILLATION (10) UTI (urinary tract infection) Code(s): N39.0 - URINARY TRACT INFECTION, SITE NOT SPECIFIED Qualifiers: Urinary tract infection type: acute cystitis Hematuria presence: without hematuria Qualified Code(s): N30.00 - Acute cystitis without hematuria (11) Leukocytosis Code(s): D72.829 - ELEVATED WHITE BLOOD CELL COUNT, UNSPECIFIED Qualifiers: Leukocytosis type: unspecified Qualified Code(s): D72.829 - Elevated white blood cell count, unspecified Assessment/Plan Echocardiography performed yesterday noted no change from study dated 07/30/15 normal LV size and function, AV sclerosis, MAC, mild MR and mild TR 1. Syncope probably neuro-cardiogenic syncope, vasodepressor vs. cardio- inhibitory, unlikely to be vaso-vagal 2. CAD post CABG angina pectoris, stable 3. 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 Paroxysmal atrial fibrillation with recurrence [id number] score of 6 currently in sinus rhythm not on A/C therapy high risk A/C patient (history of dementia, fall risk and history of gastro-intestinal bleed) 5. HTN 6. Hyperlipidemia 7. Organic brain syndrome/Dementia 8. Rectal bleed 9. CKD 10. History of fall with left femoral neck fracture post ORIF 11. 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 coli UTI, leukocytosis PLAN: 1. Currently on Cardizem 10 q6 pending caodaism of oral intake 2. Lipitor 40 qhs and Plavix 75 qd is on hold 3. Ideally patient should on A/C therapy considering the above noted history of paroxysmal atrial fibrillation with [id number] score of 6 unless it is absolutely contraindicated, as outlined previously not an appropriate candidate for A/C, continue DVT prophylaxis 4. Complete abx course, chest PT, O2 and BD as needed, aspiration precautions, MBS when able
[2017-01-22 08:05] LABS: BASOPHIL 0.2 % (0-2.0); MCH 28.2 pg (25.7-33.7); MCHC 31.9 g/dl (32.0-36.0); MEAN CELL VOLUME 88.3 fl (80-96); MEAN PLT VOLUME 7.3 fl (7.5-11.1); NEUTROPHILS 88.9 % (42.8-82.8); PLATELET COUNT 270 K/MM3 (134-434); RDW 15.5 % (11.6-15.6); WHITE BLOOD COUNT 16.9 K/mm3 (4.0-10.0)
[2017-01-22 08:46] LABS: ANION GAP 17 (8-16); CALCIUM 8.6 mg/dL (8.5-10.1); CO2 22 mmol/L (21-32); GLUCOSE,RANDOM 88 mg/dL (74-106)
[2017-01-22 08:47] LABS: CREATININE 0.8 mg/dL (0.55-1.02)
--- NOTE | 2017-01-22 09:44 | PN ---
Progress Note (short form) - Note Progress Note: Patient seems less congested today and actually asked me to let her sit in wheelchair. Will have modified brium swallow today with Laurence Muñoz. Most meds are being held and she receives IV Cardizem as needed. I still believe she is a great risk to be on coumadin because of her falls. Will start IV fluid pending the barium swallow. Her nurse said she suctioned a pill out yesterday. On Exam: Vital Signs Temp 98.0 F 01/22/17 08:31 Pulse 90 01/22/17 08:31 Resp 20 01/22/17 08:34 BP 114/52 01/22/17 08:31 Pulse Ox 94 L 01/22/17 08:34 Intake & Output 01/21/17 01/21/17 01/22/17 11:59 23:59 11:59 Intake Total 10 70 Balance 10 70 Weight 96 lb 8 oz 96 lb 6.4 oz Intake: IV 10 20 SALINE LOCK 10 20 IVPB 50 Other: Voiding Method Incontinent Incontinent Diaper # Unmeasured Voids Void 1 Bowel Movement Yes # Bowel Movements 1 Weight Measurement Method Standing Scale Standing Scale Alert less congested Chest: few anterior rhonchi Cor: Irreg Abd soft. Ext: no edema Abnormal Lab Results 01/21/17 01/22/17 01/22/17 05:35 05:35 05:35 WBC 21.3 H D 16.9 H MCHC 31.9 L MPV 7.3 L Neutrophils % 88.9 H Neutrophils % (Manual) 94 H* Lymphocytes % 3.7 L D Lymphocytes % (Manual) 3 L Monocytes % (Manual) 3 L Sodium 149 H Potassium 3.4 L Chloride 110 H Anion Gap 17 H BUN 32 H D IMP: Aspiration acute Bronchitis A. Fibrillation Dementa ASHD Hx CABG Plan: As discussed above. Hopefully meds and po can be resumed with precautions. 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 - OTHER FEMALE GENITAL TRACT FISTULAE (3) UTI (urinary tract infection) Code(s): N39.0 - URINARY TRACT INFECTION, SITE NOT SPECIFIED Qualifiers: Urinary tract infection type: acute cystitis Hematuria presence: without hematuria Qualified Code(s): N30.00 - Acute cystitis without hematuria (4) Afib Code(s): I48.91 - UNSPECIFIED ATRIAL FIBRILLATION Qualifiers: Atrial fibrillation type: paroxysmal Qualified Code(s): I48.0 - Paroxysmal atrial fibrillation (5) CAD (coronary artery disease) Code(s): I25.10 - ATHSCL HEART DISEASE OF [place] CORONARY ARTERY W/O ANG PCTRS Qualifiers: Coronary Disease-Associated Artery/Lesion type: [place] artery [place] vs. transplanted heart: [place] heart Associated angina: without angina Qualified Code(s): I25.10 - Atherosclerotic heart disease of [place] coronary artery without angina pectoris (6) Fall Code(s): W19.XXXA - UNSPECIFIED FALL, INITIAL ENCOUNTER Qualifiers: Encounter type: initial encounter Qualified Code(s): W19.XXXA - Unspecified fall, initial encounter
[2017-01-22] MEDS: ERTAPENEM SODIUM 1 GM in SODIUM CHLORIDE 50 ML IVPB SCH (09:55)
[2017-01-22] MEDS: ATROPINE SO4 1% OPHTH SOLN 5 ML BOTTLE OU SCH ×2 (10:04→21:50)
[2017-01-22] MEDS: DEXTROSE 5%-0.45% SALINE 1,000 ML IV SCH (10:04)
[2017-01-22] MEDS: ENOXAPARIN NA (PORCINE) 30 MG/0.3 ML DISP.SYRIN SQ SCH (10:05)
--- NOTE | 2017-01-22 10:37 | PN ---
Progress Note, ELECTRONICS SPECIALIST - Note Progress Note: Strong suspician for aspiration, atleast on liquids. Selected Entries 01/21/17 01/21/17 01/21/17 01:00 05:56 10:00 Breakfast 25% Supper Temperature 98.4 F 98.4 F 98.2 F 01/21/17 01/21/17 01/21/17 14:00 17:00 20:05 Breakfast Supper NPO Temperature 98.6 F 98.0 F 01/21/17 01/22/17 01/22/17 22:00 02:00 07:04 Breakfast Supper NPO Temperature 97.8 F 98.4 F 98 F 01/22/17 08:31 Breakfast NPO Supper Temperature 98.0 F Laboratory Tests 01/20/17 01/21/17 01/22/17 05:30 05:35 05:35 WBC 8.6 21.3 H D 16.9 H Frequent mouth care and suctioning performed.NPO. Pt much improved. OOB in w/c. Pending MBS today.
[2017-01-22] MEDS ORDERED: KCL 10 MEQ IVPB 100 ML IVPB SCH (11:00)
--- NOTE | 2017-01-22 13:04 | PN ---
Progress Note (short form) - Note Progress Note: PULMONARY More alert, awake today but still confused. Denies shortness of breath or cough. No fevers recorded. Last Vital Signs Temp Pulse Resp BP Pulse Ox 98.0 F 90 20 114/52 94 L 01/22/17 08:31 01/22/17 08:31 01/22/17 08:34 01/22/17 08:31 01/22/17 08:34 Gen: NAD at rest Heart: RRR Lung: decreased breath sounds at the bases Abd: soft, nontender Ext: no edema CBC, BMP 01/22/17 05:35 01/22/17 05:35 Active Medications Acetaminophen (Tylenol -) 500 mg PO Q6H PRN PRN Reason: FEVER OR PAIN Acetaminophen (Tylenol Suppository -) 650 mg MS Q4H PRN PRN Reason: FEVER OR PAIN Atropine Sulfate (Atropine 1% Ophth. Solution -) 1 drop OU BID [facility] Last Admin: 01/22/17 10:04 Dose: 1 drop Diltiazem HCl (Cardizem Injection -) 10 mg IVPUSH Q6H PRN Last Admin: 01/21/17 16:40 Dose: 10 mg Enoxaparin Sodium (Lovenox -) 30 mg SQ DAILY [facility] Last Admin: 01/22/17 10:05 Dose: 30 mg Guaifenesin (Robitussin -) 10 ml PO Q4H PRN PRN Reason: COUGH Ertapenem 1 gm/ Sodium (Chloride) 50 mls @ 50 mls/hr IVPB DAILY [facility] PRN Reason: Protocol Last Admin: 01/22/17 09:55 Dose: 50 mls/hr Dextrose/Sodium Chloride (D5-1/2ns -) 1,000 mls @ 75 mls/hr IV ASDIR [facility] Last Admin: 01/22/17 10:04 Dose: 75 mls/hr Latanoprost (Xalatan 0.005% Eye Drops -) 1 drop OU HS [facility] Last Admin: 01/21/17 21:27 Dose: 1 drop Nystatin (Nystatin Oral Suspension -) 500,000 units PO Q6HPO [facility] Last Admin: 01/22/17 11:41 Dose: 500,000 units A/P Syncope Acute on Chronic Diastolic Heart Failure CAD s/p CABG Paroxysmal Atrial Fibrillation ESBL E Coli UTI HTN h/o GI Bleed CKD Dementia - do not suspect acute pneumonia, may have aspirated without sequelae - continue antibiotics for UTI - aspiration precautions - trend WBC count, may have been from leukemoid response - O2 to keep SpO2 >90% - inhaled bronchodilators - rate/rhythm control - DVT prophylaxis Problem List - Problems (1) Syncope Code(s): R55 - SYNCOPE AND COLLAPSE Qualifiers: Syncope type: unspecified Qualified Code(s): R55 - Syncope and collapse (2) UTI (urinary tract infection) Code(s): N39.0 - URINARY TRACT INFECTION, SITE NOT SPECIFIED Qualifiers: Urinary tract infection type: acute cystitis Hematuria presence: without hematuria Qualified Code(s): N30.00 - Acute cystitis without hematuria (3) Afib Code(s): I48.91 - UNSPECIFIED ATRIAL FIBRILLATION Qualifiers: Atrial fibrillation type: paroxysmal Qualified Code(s): I48.0 - Paroxysmal atrial fibrillation (4) CAD (coronary artery disease) Code(s): I25.10 - ATHSCL HEART DISEASE OF [place] CORONARY ARTERY W/O ANG PCTRS Qualifiers: Coronary Disease-Associated Artery/Lesion type: [place] artery [place] vs. transplanted heart: [place] heart Associated angina: without angina Qualified Code(s): I25.10 - Atherosclerotic heart disease of [place] coronary artery without angina pectoris (5) Dementia Code(s): F03.90 - UNSPECIFIED DEMENTIA WITHOUT BEHAVIORAL DISTURBANCE Qualifiers: Dementia type: unspecified type Dementia behavioral disturbance: with behavioral disturbance Qualified Code(s): F03.91 - Unspecified dementia with behavioral disturbance; F10.97 - Alcohol use, unspecified with alcohol- induced persisting dementia
--- NOTE | 2017-01-22 16:24 | PN ---
Progress Note, Physician History of Present Illness: events noted no complaints confusion - Current Medication List Current Medications: Active Medications Acetaminophen (Tylenol -) 500 mg PO Q6H PRN PRN Reason: FEVER OR PAIN Acetaminophen (Tylenol Suppository -) 650 mg [place] Q4H PRN PRN Reason: FEVER OR PAIN Atropine Sulfate (Atropine 1% Ophth. Solution -) 1 drop OU BID [facility] Last Admin: 01/22/17 10:04 Dose: 1 drop Diltiazem HCl (Cardizem Injection -) 10 mg IVPUSH Q6H PRN Last Admin: 01/21/17 16:40 Dose: 10 mg Enoxaparin Sodium (Lovenox -) 30 mg SQ DAILY [facility] Last Admin: 01/22/17 10:05 Dose: 30 mg Guaifenesin (Robitussin -) 10 ml PO Q4H PRN PRN Reason: COUGH Ertapenem 1 gm/ Sodium (Chloride) 50 mls @ 50 mls/hr IVPB DAILY [facility] PRN Reason: Protocol Last Admin: 01/22/17 09:55 Dose: 50 mls/hr Dextrose/Sodium Chloride (D5-1/2ns -) 1,000 mls @ 75 mls/hr IV ASDIR [facility] Last Admin: 01/22/17 10:04 Dose: 75 mls/hr Latanoprost (Xalatan 0.005% Eye Drops -) 1 drop OU HS [facility] Last Admin: 01/21/17 21:27 Dose: 1 drop Nystatin (Nystatin Oral Suspension -) 500,000 units PO Q6HPO [facility] Last Admin: 01/22/17 11:41 Dose: 500,000 units - Objective Vital Signs: Vital Signs Temperature 97.5 F L 01/22/17 14:00 Pulse Rate 94 H 01/22/17 14:00 Respiratory Rate 20 01/22/17 14:00 Blood Pressure 116/56 01/22/17 14:00 O2 Sat by Pulse Oximetry (%) 94 L 01/22/17 08:34 Constitutional: Yes: No Distress, Calm Cardiovascular: Yes: Regular Rate and Rhythm Respiratory: Yes: Regular, Poor Air Entry, Rhonchi Gastrointestinal: Yes: Normal Bowel Sounds, Soft Musculoskeletal: Yes: WNL Extremities: Yes: WNL Neurological: Yes: Alert, Other Psychiatric: Yes: Alert, Other Labs: CBC, BMP 01/22/17 05:35 08/18/17 05:35 INR, PTT INR 1.12 (0.82-1.09) 01/15/17 14:30 Assessment/Plan Problem List - Problems (1) Syncope Code(s): R55 - SYNCOPE AND COLLAPSE Qualifiers: Syncope type: unspecified Qualified Code(s): R55 - Syncope and collapse (2) CVA (cerebral vascular accident) Code(s): I63.9 - CEREBRAL INFARCTION, UNSPECIFIED (3) Afib Code(s): I48.91 - UNSPECIFIED ATRIAL FIBRILLATION Qualifiers: Atrial fibrillation type: paroxysmal Qualified Code(s): I48.0 - Paroxysmal atrial fibrillation (4) CAD (coronary artery disease) Code(s): I25.10 - ATHSCL HEART DISEASE OF [place] CORONARY ARTERY W/O ANG PCTRS Qualifiers: (5) Dementia Code(s): F03.90 - UNSPECIFIED DEMENTIA WITHOUT BEHAVIORAL DISTURBANCE (6) Hyperlipidemia Code(s): E78.5 - HYPERLIPIDEMIA, UNSPECIFIED Qualifiers: (7) Hypertension Code(s): I10 - ESSENTIAL (PRIMARY) HYPERTENSION 8 uti plan continue current mgmt conitnue abx asp precautions rest as per primary team
[2017-01-22] MEDS: dilTIAZem HCL 50 MG/10 ML - 10 ML VIAL IVPUSH PRN ×2 (19:06→23:17)
[2017-01-22] MEDS ORDERED: METOPROLOL TARTRATE 5 MG/5 ML VIAL ONE (19:58)
[2017-01-22] MEDS ORDERED: METOPROLOL TARTRATE 5 MG/5 ML VIAL IVPUSH ONE (20:00)
[2017-01-22] MEDS: LATANOPROST 0.005% OPHTH SOLN 2.5ML BOTTLE OU SCH (21:49)
[2017-01-22] MEDS ORDERED: PT OWN MED DRAWER 7, Y5N ONE (22:09)
[2017-01-23] MEDS: NYSTATIN 500,000 UNITS/5 ML SUSPENSION PO SCH ×4 (00:40→18:15)
[2017-01-23 08:17] LABS: BASOPHIL 0.2 % (0-2.0); EOSINOPHIL 0.6 % (0-4.5); MCH 28.9 pg (25.7-33.7); MCHC 32.7 g/dl (32.0-36.0); MEAN CELL VOLUME 88.2 fl (80-96); MEAN PLT VOLUME 7.2 fl (7.5-11.1); NEUTROPHILS 87.1 % (42.8-82.8); PLATELET COUNT 265 K/MM3 (134-434); RDW 16.1 % (11.6-15.6); WHITE BLOOD COUNT 12.3 K/mm3 (4.0-10.0)
[2017-01-23 08:30] LABS: ANION GAP 7 (8-16); CALCIUM 8.3 mg/dL (8.5-10.1); CO2 30 mmol/L (21-32); CREATININE 0.7 mg/dL (0.55-1.02); GLUCOSE,RANDOM 129 mg/dL (74-106)
[2017-01-23] MEDS: dilTIAZem HCL 50 MG/10 ML - 10 ML VIAL IVPUSH PRN (08:40)
[2017-01-23] MEDS: DEXTROSE 5%-0.45% SALINE 1,000 ML IV SCH (09:40)
[2017-01-23] MEDS: ENOXAPARIN NA (PORCINE) 30 MG/0.3 ML DISP.SYRIN SQ SCH (09:40)
--- NOTE | 2017-01-23 10:49 | PN ---
Progress Note (short form) - Note Progress Note: Patient is poorly responsive today and still having rapid A. Fibrillation. Modified barium swallow report from Laurence Muñoz reviewed and patient is such a high risk for aspiration that she suggests strict NPO even for medication. She is again very congested today. I don't believe she could tolerate a PEG tube procedure at this time and frankly if she becomes more aware again I don't believe she would be agreeable to that either. An NG tube may be a temporary choice but I am certain the risk of further aspiration would increase with that placement and she would probably try to remove it when she is agitated. Her lytes are noted with a K of 3 and Sodium of 150. I will give several runs of KCL and change the IV to D5W and recheck her lytes in AM. The patient may be better transitioned to comfort care. The only known contact I have had with her family was a brother Albin Dean who clearly told me about a year ago that he wanted no decision making for her and was ill himself.I have called his number on the chart and there is no way to leave a message.( [phone]). The other person (James Reyes) mentioned on her record is a neighbor who used to help her with errands and is not a family member. I may have to ask one of her other treating Physicians to sign a concurring DNR/ DNI form. On Exam: Vital Signs Temp 98.6 F 01/22/17 22:00 Pulse 155 H 01/22/17 23:20 Resp 18 01/22/17 22:00 BP 104/61 01/22/17 23:20 Pulse Ox 94 L 01/22/17 08:34 Intake & Output 01/22/17 01/22/17 01/23/17 11:59 23:59 11:59 Intake Total 1010 900 Balance 1010 900 Weight 96 lb 6.4 oz Intake: IV 860 900 D5-1/2Ns - 1,000 ml @ 75 850 900 mls/hr IV ASDIR [facility]ENE Rx#: [id number] SALINE LOCK 10 IVPB 150 Other: Voiding Method Diaper Incontinent # Unmeasured Voids Void 1 Bowel Movement Yes # Bowel Movements 1 Weight Measurement Method Standing Scale Lethargic some congestion and coughing Cor: Irregular Tachycardia Abd:Soft Ext: No edema Chest: Scattered Rhonchi. Abnormal Lab Results 01/23/17 01/23/17 06:05 06:05 WBC 12.3 H RBC 3.56 L Hgb 10.3 L Hct 31.4 L RDW 16.1 H MPV 7.2 L Neutrophils % 87.1 H Lymphocytes % 5.1 L D Sodium 150 H Potassium 3.0 L Chloride 113 H Anion Gap 7 L BUN 30 H Random Glucose 129 H D Calcium 8.3 L IMP: Aspiration with Acute Bronchitis Severe Aspiration Risk Acute UTI Dementia ASHD with CABG A. Fibrillation with tachycardia ? Colouterine Fistula Hypertension Plan: As outlined above Repeat Lab DNR if other MD will concur. 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 TRACT FISTULAE (3) UTI (urinary tract infection) Code(s): N39.0 - URINARY TRACT INFECTION, SITE NOT SPECIFIED Qualifiers: Urinary tract infection type: acute cystitis Hematuria presence: without hematuria Qualified Code(s): N30.00 - Acute cystitis without hematuria (4) Afib Code(s): I48.91 - UNSPECIFIED ATRIAL FIBRILLATION Qualifiers: Atrial fibrillation type: paroxysmal Qualified Code(s): I48.0 - Paroxysmal atrial fibrillation (5) CAD (coronary artery disease) Code(s): I25.10 - ATHSCL HEART DISEASE OF [place] CORONARY ARTERY W/O ANG PCTRS Qualifiers: Coronary Disease-Associated Artery/Lesion type: [place] artery [place] vs. transplanted heart: [place] heart Associated angina: without angina Qualified Code(s): I25.10 - Atherosclerotic heart disease of [place] coronary artery without angina pectoris (6) Fall Code(s): W19.XXXA - UNSPECIFIED FALL, INITIAL ENCOUNTER Qualifiers: Encounter type: initial encounter Qualified Code(s): W19.XXXA - Unspecified fall, initial encounter
[2017-01-23] MEDS ORDERED: PT OWN MED DRAWER 7, Y5N ONE ×3 (10:52→21:01)
[2017-01-23] MEDS: KCL 10 MEQ IVPB 100 ML IVPB SCH ×3 (11:02→14:25)
[2017-01-23] MEDS: ATROPINE SO4 1% OPHTH SOLN 5 ML BOTTLE OU SCH ×2 (11:02→21:05)
[2017-01-23] MEDS: ERTAPENEM SODIUM 1 GM in SODIUM CHLORIDE 50 ML IVPB SCH (12:54)
[2017-01-23] MEDS: DEXTROSE 5%-WATER - 1,000 ML IV SCH (14:00)
--- NOTE | 2017-01-23 14:07 | PN ---
Progress Note, Physician History of Present Illness: Pt easily arousable and responsive, indicates she feels better. - Current Medication List Current Medications: Active Medications Acetaminophen (Tylenol -) 500 mg PO Q6H PRN PRN Reason: FEVER OR PAIN Acetaminophen (Tylenol Suppository -) 650 mg [place] Q4H PRN PRN Reason: FEVER OR PAIN Atropine Sulfate (Atropine 1% Ophth. Solution -) 1 drop OU BID [facility] Last Admin: 01/23/17 11:02 Dose: 1 drop Diltiazem HCl (Cardizem Injection -) 10 mg IVPUSH Q4H PRN Last Admin: 01/23/17 08:40 Dose: 10 mg Enoxaparin Sodium (Lovenox -) 30 mg SQ DAILY [facility] Last Admin: 01/23/17 09:40 Dose: 30 mg Guaifenesin (Robitussin -) 10 ml PO Q4H PRN PRN Reason: COUGH Ertapenem 1 gm/ Sodium (Chloride) 50 mls @ 50 mls/hr IVPB DAILY [facility] PRN Reason: Protocol Last Admin: 01/23/17 12:54 Dose: 50 mls/hr Dextrose (D5w -) 1,000 mls @ 83 mls/hr IV .Q12H3M [facility] Latanoprost (Xalatan 0.005% Eye Drops -) 1 drop OU HS [facility] Last Admin: 01/22/17 21:49 Dose: 1 drop Nystatin (Nystatin Oral Suspension -) 500,000 units PO Q6HPO [facility] Last Admin: 01/23/17 11:02 Dose: 500,000 units - Objective Vital Signs: Vital Signs Temperature 97.7 F 01/23/17 10:00 Pulse Rate 134 H 01/23/17 10:00 Respiratory Rate 22 01/23/17 10:00 Blood Pressure 91/54 01/23/17 10:00 O2 Sat by Pulse Oximetry (%) 94 L 01/22/17 08:34 Constitutional: Yes: No Distress Eyes: Yes: WNL HENT: Yes: WNL Neck: Yes: Supple Cardiovascular: Yes: Regular Rate and Rhythm Respiratory: Yes: Regular Gastrointestinal: Yes: Normal Bowel Sounds, Soft Genitourinary: Yes: WNL Musculoskeletal: Yes: WNL Extremities: Yes: WNL Neurological: Yes: Alert, Weakness Labs: CBC, BMP 01/23/17 06:05 01/23/17 06:05 INR, PTT INR 1.12 (0.82-1.09) 01/15/17 14:30 Problem List - Problems (1) CVA (cerebral vascular accident) Code(s): I63.9 - CEREBRAL INFARCTION, UNSPECIFIED (2) UTI (urinary tract infection) Code(s): N39.0 - URINARY TRACT INFECTION, SITE NOT SPECIFIED Qualifiers: Urinary tract infection type: acute cystitis Hematuria presence: without hematuria Qualified Code(s): N30.00 - Acute cystitis without hematuria (3) Anemia Code(s): D64.9 - ANEMIA, UNSPECIFIED Qualifiers: Anemia type: unspecified type Qualified Code(s): D64.9 - Anemia, unspecified (4) CAD (coronary artery disease) Code(s): I25.10 - ATHSCL HEART DISEASE OF [place] CORONARY ARTERY W/O ANG PCTRS Qualifiers: Coronary Disease-Associated Artery/Lesion type: [place] artery [place] vs. transplanted heart: [place] heart Associated angina: without angina Qualified Code(s): I25.10 - Atherosclerotic heart disease of [place] coronary artery without angina pectoris (5) Leukocytosis Code(s): D72.829 - ELEVATED WHITE BLOOD CELL COUNT, UNSPECIFIED Qualifiers: Leukocytosis type: unspecified Qualified Code(s): D72.829 - Elevated white blood cell count, unspecified Assessment/Plan Pt clinically stable at this time wbc trending down - continue current antibiotics - continue monitor
--- NOTE | 2017-01-23 15:12 | PN ---
Progress Note (short form) - Note Progress Note: PULMONARY Confused but denies shortness of breath or cough. No fevers recorded. Last Vital Signs Temp Pulse Resp BP Pulse Ox 97.7 F 134 H 22 91/54 94 L 01/23/17 10:00 01/23/17 10:00 01/23/17 10:00 01/23/17 10:00 01/22/17 08:34 Gen: NAD at rest Heart: RRR Lung: decreased breath sounds at the bases Abd: soft, nontender Ext: no edema CBC, BMP 01/23/17 06:05 01/23/17 06:05 Active Medications Acetaminophen (Tylenol -) 500 mg PO Q6H PRN PRN Reason: FEVER OR PAIN Acetaminophen (Tylenol Suppository -) 650 mg [place] Q4H PRN PRN Reason: FEVER OR PAIN Atropine Sulfate (Atropine 1% Ophth. Solution -) 1 drop OU BID [facility] Last Admin: 01/23/17 11:02 Dose: 1 drop Diltiazem HCl (Cardizem Injection -) 10 mg IVPUSH Q4H PRN Last Admin: 01/23/17 08:40 Dose: 10 mg Enoxaparin Sodium (Lovenox -) 30 mg SQ DAILY [facility] Last Admin: 01/23/17 09:40 Dose: 30 mg Guaifenesin (Robitussin -) 10 ml PO Q4H PRN PRN Reason: COUGH Ertapenem 1 gm/ Sodium (Chloride) 50 mls @ 50 mls/hr IVPB DAILY [facility] PRN Reason: Protocol Last Admin: 01/23/17 12:54 Dose: 50 mls/hr Dextrose (D5w -) 1,000 mls @ 83 mls/hr IV .Q12H3M [facility] Latanoprost (Xalatan 0.005% Eye Drops -) 1 drop OU HS [facility] Last Admin: 01/22/17 21:49 Dose: 1 drop Nystatin (Nystatin Oral Suspension -) 500,000 units PO Q6HPO [facility] Last Admin: 01/23/17 11:02 Dose: 500,000 units A/P Syncope Acute on Chronic Diastolic Heart Failure CAD s/p CABG Paroxysmal Atrial Fibrillation ESBL E Coli UTI HTN h/o GI Bleed CKD Dementia - do not suspect acute pneumonia, may have aspirated without sequelae - continue antibiotics for UTI - aspiration precautions - O2 to keep SpO2 >90% - inhaled bronchodilators - rate/rhythm control - DVT prophylaxis Problem List - Problems (1) Syncope Code(s): R55 - SYNCOPE AND COLLAPSE Qualifiers: Syncope type: unspecified Qualified Code(s): R55 - Syncope and collapse (2) UTI (urinary tract infection) Code(s): N39.0 - URINARY TRACT INFECTION, SITE NOT SPECIFIED Qualifiers: Urinary tract infection type: acute cystitis Hematuria presence: without hematuria Qualified Code(s): N30.00 - Acute cystitis without hematuria (3) Afib Code(s): I48.91 - UNSPECIFIED ATRIAL FIBRILLATION Qualifiers: Atrial fibrillation type: paroxysmal Qualified Code(s): I48.0 - Paroxysmal atrial fibrillation (4) CAD (coronary artery disease) Code(s): I25.10 - ATHSCL HEART DISEASE OF [place] CORONARY ARTERY W/O ANG PCTRS Qualifiers: Coronary Disease-Associated Artery/Lesion type: [place] artery [place] vs. transplanted heart: [place] heart Associated angina: without angina Qualified Code(s): I25.10 - Atherosclerotic heart disease of [place] coronary artery without angina pectoris (5) Dementia Code(s): F03.90 - UNSPECIFIED DEMENTIA WITHOUT BEHAVIORAL DISTURBANCE Qualifiers: Dementia type: unspecified type Dementia behavioral disturbance: with behavioral disturbance Qualified Code(s): F03.91 - Unspecified dementia with behavioral disturbance; F10.97 - Alcohol use, unspecified with alcohol- induced persisting dementia
[2017-01-23] MEDS: LATANOPROST 0.005% OPHTH SOLN 2.5ML BOTTLE OU SCH (21:05)
[2017-01-24] MEDS: NYSTATIN 500,000 UNITS/5 ML SUSPENSION PO SCH ×4 (00:34→17:59)
[2017-01-24] MEDS: DEXTROSE 5%-WATER - 1,000 ML IV SCH (01:40)
[2017-01-24 08:08] LABS: BASOPHIL 0.2 % (0-2.0); EOSINOPHIL 2.6 % (0-4.5); MCH 29.6 pg (25.7-33.7); MCHC 33.3 g/dl (32.0-36.0); MEAN CELL VOLUME 88.9 fl (80-96); MEAN PLT VOLUME 7.4 fl (7.5-11.1); PLATELET COUNT 245 K/MM3 (134-434); RDW 16.1 % (11.6-15.6); WHITE BLOOD COUNT 7.8 K/mm3 (4.0-10.0)
[2017-01-24 08:35] LABS: ANION GAP 6 (8-16); CALCIUM 8.1 mg/dL (8.5-10.1); CO2 32 mmol/L (21-32); CREATININE 0.4 mg/dL (0.55-1.02); GLUCOSE,RANDOM 109 mg/dL (74-106)
[2017-01-24] MEDS ORDERED: PT OWN MED DRAWER 7, Y5N ONE (08:43)
[2017-01-24] MEDS: ATROPINE SO4 1% OPHTH SOLN 5 ML BOTTLE OU SCH (10:04)
[2017-01-24] MEDS: ENOXAPARIN NA (PORCINE) 30 MG/0.3 ML DISP.SYRIN SQ SCH (10:04)
--- NOTE | 2017-01-24 11:04 | PN ---
Progress Note, Physician History of Present Illness: Maintained in SR on Cardizem IV, aspiration suspected, placed NPO pending MBS. Episodes of confusion. - Current Medication List Current Medications: Active Medications Acetaminophen (Tylenol -) 500 mg PO Q6H PRN PRN Reason: FEVER OR PAIN Acetaminophen (Tylenol Suppository -) 650 mg [place] Q4H PRN PRN Reason: FEVER OR PAIN Atropine Sulfate (Atropine 1% Ophth. Solution -) 1 drop OU BID [facility] Last Admin: 01/24/17 10:04 Dose: 1 drop Diltiazem HCl (Cardizem Injection -) 10 mg IVPUSH Q4H PRN Last Admin: 01/23/17 08:40 Dose: 10 mg Enoxaparin Sodium (Lovenox -) 30 mg SQ DAILY [facility] Last Admin: 01/24/17 10:04 Dose: 30 mg Guaifenesin (Robitussin -) 10 ml PO Q4H PRN PRN Reason: COUGH Ertapenem 1 gm/ Sodium (Chloride) 50 mls @ 50 mls/hr IVPB DAILY [facility] PRN Reason: Protocol Last Admin: 01/23/17 12:54 Dose: 50 mls/hr Dextrose (D5w -) 1,000 mls @ 83 mls/hr IV .Q12H3M [facility] Last Admin: 01/24/17 01:40 Dose: 83 mls/hr Latanoprost (Xalatan 0.005% Eye Drops -) 1 drop OU HS [facility] Last Admin: 01/23/17 21:05 Dose: 1 drop Nystatin (Nystatin Oral Suspension -) 500,000 units PO Q6HPO [facility] Last Admin: 01/24/17 06:20 Dose: 500,000 units - Objective Vital Signs: Vital Signs Temperature 97.8 F 01/24/17 10:00 Pulse Rate 76 01/24/17 10:00 Respiratory Rate 22 01/24/17 10:00 Blood Pressure 131/72 01/24/17 10:00 O2 Sat by Pulse Oximetry (%) 94 L 01/23/17 21:56 Constitutional: Yes: No Distress, Calm Neck: Yes: Supple Cardiovascular: Yes: Regular Rate and Rhythm Respiratory: Yes: Regular, Diminished, On Nasal O2 Gastrointestinal: Yes: Normal Bowel Sounds, Soft Edema: No Labs: CBC, BMP 01/24/17 05:42 01/24/17 05:42 INR, PTT INR 1.12 (0.82-1.09) 01/15/17 14:30 - ....Imaging EKG: Report Reviewed (Tele: PAF->SR) Problem List - Problems (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 transplanted heart: [place] heart Associated angina: without angina Qualified Code(s): I25.10 - Atherosclerotic heart disease of [place] coronary artery without angina pectoris (4) Dementia Code(s): F03.90 - UNSPECIFIED DEMENTIA WITHOUT BEHAVIORAL DISTURBANCE Qualifiers: Dementia type: unspecified type Dementia behavioral disturbance: with behavioral disturbance Qualified Code(s): F03.91 - Unspecified dementia with behavioral disturbance; F10.97 - Alcohol use, unspecified with alcohol- induced persisting dementia (5) History of hemiarthroplasty of left hip Code(s): Z96.642 - PRESENCE OF LEFT ARTIFICIAL HIP JOINT (6) Hx of CABG Code(s): Z95.1 - PRESENCE OF AORTOCORONARY BYPASS GRAFT (7) Hyperlipidemia Code(s): E78.5 - HYPERLIPIDEMIA, UNSPECIFIED Qualifiers: Hyperlipidemia type: pure hypercholesterolemia Qualified Code(s): E78.00 - Pure hypercholesterolemia, unspecified; E78.0 - Pure hypercholesterolemia (8) Hypertension Code(s): I10 - ESSENTIAL (PRIMARY) HYPERTENSION Qualifiers: Hypertension type: essential hypertension Qualified Code(s): I10 - Essential (primary) hypertension (9) Paroxysmal atrial fibrillation Code(s): I48.0 - PAROXYSMAL ATRIAL FIBRILLATION (10) UTI (urinary tract infection) Code(s): N39.0 - URINARY TRACT INFECTION, SITE NOT SPECIFIED Qualifiers: Urinary tract infection type: acute cystitis Hematuria presence: without hematuria Qualified Code(s): N30.00 - Acute cystitis without hematuria Assessment/Plan Echocardiography performed yesterday noted no change from study dated 07/30/15 normal LV size and function, AV sclerosis, MAC, mild MR and mild TR 1. Syncope probably neuro-cardiogenic syncope, vasodepressor vs. cardio- inhibitory, unlikely to be vaso-vagal 2. CAD post CABG angina pectoris, stable 3. 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 Paroxysmal atrial fibrillation with recurrence [id number] score of 6 currently in sinus rhythm not on A/C therapy high risk A/C patient (history of dementia, fall risk and history of gastro-intestinal bleed) 5. HTN 6. Hyperlipidemia 7. 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 Rectal bleed 9. CKD 10. History of fall with left femoral neck fracture post ORIF 11. 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 coli UTI, leukocytosis PLAN: 1. Currently on Cardizem 10 IV q4 pending taoist of oral intake 2. Lipitor 40 qhs and Plavix 75 qd is on hold 3. Ideally patient should on A/C therapy considering the above noted history of paroxysmal atrial fibrillation with [id number] score of 6, but not an appropriate candidate for A/C, continue DVT prophylaxis 4. Complete abx course, chest PT, O2 and BD as needed, aspiration precautions, MBS when able
[2017-01-24] MEDS: ERTAPENEM SODIUM 1 GM in SODIUM CHLORIDE 50 ML IVPB SCH (11:29)
--- NOTE | 2017-01-24 12:30 | PN ---
Progress Note (short form) - Note Progress Note: The patient seems more aware today and keeps telling me she is hungry. I tried to tell her that her test with the speech therapist Wednesday showed that she was at risk for aspirating (in layman's language). She insists that she never had the problem and is hungry. When I asked her about a " tube in her stomach or thru her nose" to give her "liquid food" she said she would refuse. Under the circumstances I feel we should again try small spoonfuls of applesauce and see how she responds. She will remain on IV fluids. I again tried to contact former family members; brother Albin Dean but the phone rings and no message is permitted. He had previously told me he was very elderly and ill and wanted no part of her care. I also had the phone number of a nephew of her second Alan Blount but the person answering the phone yesterday said no one was there by that name. Her first and only son in an auto accident. I appreciate the Pulmonary MD signing her DNR/DNI as the concurring MD yesterday. Today back in sinus rhythm. Lytes improved. On Exam: Vital Signs Temp 97.8 F 01/24/17 10:00 Pulse 76 01/24/17 10:00 Resp 22 01/24/17 10:00 BP 131/72 01/24/17 10:00 Pulse Ox 94 L 01/23/17 21:56 Intake & Output 01/23/17 01/24/17 01/24/17 23:59 11:59 23:59 Intake Total 0 900 Balance 0 900 Weight 106 lb 2 oz Intake: IV 900 D5w - 1,000 ml @ 83 mls/ 900 hr IV .Q12H3M [facility] Rx#: [id number] Oral 0 Other: Voiding Method Incontinent # Unmeasured Voids Void 1 Bowel Movement No No Weight Measurement Method Standing Scale Alert Slightly congested Chest: No obvious rale or rhonchi heard Abd; Soft Ext: No pedal edema Abnormal Lab Results 01/24/17 01/24/17 05:42 05:42 Hct 32.1 L RDW 16.1 H MPV 7.4 L Neutrophils % 83.0 H Lymphocytes % 6.3 L D Sodium 147 H Chloride 109 H Anion Gap 6 L Creatinine 0.4 L D Random Glucose 109 H Calcium 8.1 L IMP: Aspiration and probable Acute Bronchitis and pharyngitis Dementia Acute UTI on Rx. 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 (3) UTI (urinary tract infection) Code(s): N39.0 - URINARY TRACT INFECTION, SITE NOT SPECIFIED Qualifiers: Urinary tract infection type: acute cystitis Hematuria presence: without hematuria Qualified Code(s): N30.00 - Acute cystitis without hematuria (4) Afib Code(s): I48.91 - UNSPECIFIED ATRIAL FIBRILLATION Qualifiers: Atrial fibrillation type: paroxysmal Qualified Code(s): I48.0 - Paroxysmal atrial fibrillation (5) CAD (coronary artery disease) Code(s): I25.10 - ATHSCL HEART DISEASE OF [place] CORONARY ARTERY W/O ANG PCTRS Qualifiers: Coronary Disease-Associated Artery/Lesion type: [place] artery [place] vs. transplanted heart: [place] heart Associated angina: without angina Qualified Code(s): I25.10 - Atherosclerotic heart disease of [place] coronary artery without angina pectoris (6) Fall Code(s): W19.XXXA - UNSPECIFIED FALL, INITIAL ENCOUNTER Qualifiers: Encounter type: initial encounter Qualified Code(s): W19.XXXA - Unspecified fall, initial encounter
[2017-01-24] MEDS ORDERED: KCL 10 MEQ IVPB 100 ML IVPB SCH (12:50)
--- NOTE | 2017-01-24 16:30 | PN ---
Progress Note (short form) - Note Progress Note: PULMONARY Remains confused but denies shortness of breath or cough. No fevers recorded. Last Vital Signs Temp Pulse Resp BP Pulse Ox 97.9 F 80 22 125/71 94 L 01/24/17 16:00 01/24/17 16:00 01/24/17 10:00 01/24/17 16:00 01/24/17 10:00 Gen: NAD at rest Heart: RRR Lung: decreased breath sounds at the bases Abd: soft, nontender Ext: no edema CBC, BMP 01/24/17 05:42 01/24/17 05:42 Active Medications Acetaminophen (Tylenol Suppository -) 650 mg [place] Q4H PRN PRN Reason: FEVER OR PAIN Atropine Sulfate (Atropine 1% Ophth. Solution -) 1 drop OU BID [facility] Last Admin: 01/24/17 10:04 Dose: 1 drop Diltiazem HCl (Cardizem Injection -) 10 mg IVPUSH Q4H PRN Last Admin: 01/23/17 08:40 Dose: 10 mg Enoxaparin Sodium (Lovenox -) 30 mg SQ DAILY [facility] Last Admin: 01/24/17 10:04 Dose: 30 mg Guaifenesin (Robitussin -) 10 ml PO Q4H PRN PRN Reason: COUGH Ertapenem 1 gm/ Sodium (Chloride) 50 mls @ 50 mls/hr IVPB DAILY [facility] PRN Reason: Protocol Last Admin: 01/24/17 11:29 Dose: 50 mls/hr Dextrose (D5w -) 1,000 mls @ 83 mls/hr IV .Q12H3M [facility] Last Admin: 01/24/17 01:40 Dose: 83 mls/hr Latanoprost (Xalatan 0.005% Eye Drops -) 1 drop OU HS [facility] Last Admin: 01/23/17 21:05 Dose: 1 drop Nystatin (Nystatin Oral Suspension -) 500,000 units PO Q6HPO [facility] Last Admin: 01/24/17 11:58 Dose: 500,000 units A/P Syncope Acute on Chronic Diastolic Heart Failure CAD s/p CABG Paroxysmal Atrial Fibrillation ESBL E Coli UTI HTN h/o GI Bleed CKD Dementia - do not suspect acute pneumonia, may have aspirated without sequelae - continue antibiotics for UTI - aspiration precautions - O2 to keep SpO2 >90% - inhaled bronchodilators - rate/rhythm control - DVT prophylaxis - pt DNR/DNI Problem List - Problems (1) Syncope Code(s): R55 - SYNCOPE AND COLLAPSE Qualifiers: Syncope type: unspecified Qualified Code(s): R55 - Syncope and collapse (2) UTI (urinary tract infection) Code(s): N39.0 - URINARY TRACT INFECTION, SITE NOT SPECIFIED Qualifiers: Urinary tract infection type: acute cystitis Hematuria presence: without hematuria Qualified Code(s): N30.00 - Acute cystitis without hematuria (3) Afib Code(s): I48.91 - UNSPECIFIED ATRIAL FIBRILLATION Qualifiers: Atrial fibrillation type: paroxysmal Qualified Code(s): I48.0 - Paroxysmal atrial fibrillation (4) CAD (coronary artery disease) Code(s): I25.10 - ATHSCL HEART DISEASE OF [place] CORONARY ARTERY W/O ANG PCTRS Qualifiers: Coronary Disease-Associated Artery/Lesion type: [place] artery [place] vs. transplanted heart: [place] heart Associated angina: without angina Qualified Code(s): I25.10 - Atherosclerotic heart disease of [place] coronary artery without angina pectoris (5) Dementia Code(s): F03.90 - UNSPECIFIED DEMENTIA WITHOUT BEHAVIORAL DISTURBANCE Qualifiers: Dementia type: unspecified type Dementia behavioral disturbance: with behavioral disturbance Qualified Code(s): F03.91 - Unspecified dementia with behavioral disturbance; F10.97 - Alcohol use, unspecified with alcohol- induced persisting dementia
--- NOTE | 2017-01-24 16:38 | PN ---
Progress Note, Physician History of Present Illness: Pt alert and responsive. States she is bored and lonely. Denies any pain or any other specific complaints. - Current Medication List Current Medications: Active Medications Acetaminophen (Tylenol Suppository -) 650 mg [place] Q4H PRN PRN Reason: FEVER OR PAIN Atropine Sulfate (Atropine 1% Ophth. Solution -) 1 drop OU BID [facility] Last Admin: 01/24/17 10:04 Dose: 1 drop Diltiazem HCl (Cardizem Injection -) 10 mg IVPUSH Q4H PRN Last Admin: 01/23/17 08:40 Dose: 10 mg Enoxaparin Sodium (Lovenox -) 30 mg SQ DAILY [facility] Last Admin: 01/24/17 10:04 Dose: 30 mg Guaifenesin (Robitussin -) 10 ml PO Q4H PRN PRN Reason: COUGH Ertapenem 1 gm/ Sodium (Chloride) 50 mls @ 50 mls/hr IVPB DAILY [facility] PRN Reason: Protocol Last Admin: 01/24/17 11:29 Dose: 50 mls/hr Dextrose (D5w -) 1,000 mls @ 83 mls/hr IV .Q12H3M [facility] Last Admin: 01/24/17 01:40 Dose: 83 mls/hr Latanoprost (Xalatan 0.005% Eye Drops -) 1 drop OU HS [facility] Last Admin: 01/23/17 21:05 Dose: 1 drop Nystatin (Nystatin Oral Suspension -) 500,000 units PO Q6HPO [facility] Last Admin: 01/24/17 11:58 Dose: 500,000 units - Objective Vital Signs: Vital Signs Temperature 97.9 F 01/24/17 16:00 Pulse Rate 80 01/24/17 16:00 Respiratory Rate 22 01/24/17 10:00 Blood Pressure 125/71 01/24/17 16:00 O2 Sat by Pulse Oximetry (%) 94 L 01/24/17 10:00 Constitutional: Yes: No Distress, Calm Eyes: Yes: WNL HENT: Yes: Atraumatic Neck: Yes: Supple Cardiovascular: Yes: Regular Rate and Rhythm Respiratory: Yes: Other (B/L air entry, no rhonchi or wheeze) Gastrointestinal: Yes: Normal Bowel Sounds, Soft Genitourinary: Yes: WNL Integumentary: Yes: WNL Wound/Incision: Yes: Clean/Dry Neurological: Yes: Alert, Oriented Labs: CBC, BMP 01/24/17 05:42 01/24/17 05:42 INR, PTT INR 1.12 (0.82-1.09) 01/15/17 14:30 Problem List - Problems (1) CVA (cerebral vascular accident) Code(s): I63.9 - CEREBRAL INFARCTION, UNSPECIFIED (2) UTI (urinary tract infection) Code(s): N39.0 - URINARY TRACT INFECTION, SITE NOT SPECIFIED Qualifiers: Urinary tract infection type: acute cystitis Hematuria presence: without hematuria Qualified Code(s): N30.00 - Acute cystitis without hematuria (3) Anemia Code(s): D64.9 - ANEMIA, UNSPECIFIED Qualifiers: Anemia type: unspecified type Qualified Code(s): D64.9 - Anemia, unspecified (4) CAD (coronary artery disease) Code(s): I25.10 - ATHSCL HEART DISEASE OF [place] CORONARY ARTERY W/O ANG PCTRS Qualifiers: Coronary Disease-Associated Artery/Lesion type: [place] artery [place] vs. transplanted heart: [place] heart Associated angina: without angina Qualified Code(s): I25.10 - Atherosclerotic heart disease of [place] coronary artery without angina pectoris (5) Leukocytosis Code(s): D72.829 - ELEVATED WHITE BLOOD CELL COUNT, UNSPECIFIED Qualifiers: Leukocytosis type: unspecified Qualified Code(s): D72.829 - Elevated white blood cell count, unspecified Assessment/Plan Pt alert, afebrile leukocytosis resolved resistant E. coli UTI - continue antibiotics for now - continue monitor
[2017-01-25] MEDS: ATROPINE SO4 1% OPHTH SOLN 5 ML BOTTLE OU SCH ×3 (00:07→22:54)
[2017-01-25] MEDS: LATANOPROST 0.005% OPHTH SOLN 2.5ML BOTTLE OU SCH ×2 (00:07→22:55)
[2017-01-25] MEDS: NYSTATIN 500,000 UNITS/5 ML SUSPENSION PO SCH ×4 (00:08→18:13)
[2017-01-25] MEDS: dilTIAZem HCL 50 MG/10 ML - 10 ML VIAL IVPUSH PRN (04:30)
[2017-01-25] MEDS ORDERED: SODIUM CHLORIDE 500 ML IV STA ×2 (06:20→07:07)
[2017-01-25] MEDS ORDERED: SODIUM CHLORIDE 250 ML IV STA (06:30)
[2017-01-25] MEDS ORDERED: DIGOXIN 0.5 MG/2 ML AMPUL IVPUSH ONE (06:35)
[2017-01-25] MEDS ORDERED: DIGOXIN 0.5 MG/2 ML AMPUL ONE (06:39)
--- NOTE | 2017-01-25 06:52 | HOSP ---
Subjective - Review of Symptoms Subjective: Paged at 0600h about patient being in A. fib at a rate of 180's. Nursing staff stated that they had given her Cardizem 10mg around 0430h which did not affect the HR. Pt's BP was rechecked and revealed 81/39. On exam patient sounded congested on lung auscultation and thus they did not want to bolus. Seen an evaluated pt revealing coarse breath sounds throughout with pt reporting no signs or symptom including palpitations, headache, dizziness, feeling faint. Cardiology was called who recommended a CXR, trop I, and an EKG. Physical Examination Vital Signs: Vital Signs Temperature 97.5 F L 01/25/17 04:04 Pulse Rate 82 01/25/17 04:04 Respiratory Rate 20 01/25/17 04:04 Blood Pressure 135/65 01/25/17 04:04 O2 Sat by Pulse Oximetry (%) 94 L 01/24/17 22:00 Constitutional: Yes: No Distress, Calm, Thin Eyes: Yes: Conjunctiva Clear, EOM Intact, PERRL Neck: Yes: Trachea Midline Cardiovascular: Yes: Tachycardia, Pulse Irregular. No: Murmur Respiratory: Yes: Regular, On Nasal O2 (3LNC), Rales, Rhonchi. No: Accessory Muscle Use Edema: No Neurological: Yes: Alert Psychiatric: Yes: Alert Labs: CBC, BMP 01/24/17 05:42 01/24/17 05:42 Hospitalist Encounter Assessment: Existing A. Fib with HR in 180's. Pt congested on exam, but asymptomatic otherwise. Cardizem 10mg already given with no response --CXR portable stat ordered --Troponin I stat ordered --Cardiology aware of situation --250cc bolus over 30 min due to hypotension and need to increase BP despite congestion --Pt SpO2 95% on 4LNC (baseline) with no symptoms --Benefits of fluid outweighed any risks at this time UPDATE: BP increased to 90s/59 with fluids. no increase in O2 demand or SOB noted --Digoxin 0.125mg administered --HR reduced from 180's to 100-110s --Advised nursing staff to inform primary team and follow with care.
[2017-01-25 07:59] LABS: BASOPHIL 0.3 % (0-2.0); EOSINOPHIL 2.9 % (0-4.5); MCH 29.6 pg (25.7-33.7); MCHC 33.4 g/dl (32.0-36.0); MEAN CELL VOLUME 88.5 fl (80-96); MEAN PLT VOLUME 7.2 fl (7.5-11.1); NEUTROPHILS 79.7 % (42.8-82.8); PLATELET COUNT 241 K/MM3 (134-434); RDW 15.5 % (11.6-15.6); WHITE BLOOD COUNT 7.7 K/mm3 (4.0-10.0)
[2017-01-25 08:55] LABS: ANION GAP 6 (8-16); CALCIUM 8.4 mg/dL (8.5-10.1); CO2 34 mmol/L (21-32); CREATININE 0.5 mg/dL (0.55-1.02); GLUCOSE,RANDOM 77 mg/dL (74-106)
[2017-01-25 08:57] LABS: TROPONIN I 0.03 ng/ml (0.00-0.05)
[2017-01-25] MEDS ORDERED: PT OWN MED DRAWER 7, Y5N ONE ×2 (09:33→22:37)
--- NOTE | 2017-01-25 09:47 | PN ---
Progress Note, Physician Chief Complaint: Events noted Currently remains in sinus rhythm AF with rapid ventricular response early this morning and had received IV Cardizem History of Present Illness: Patient was seen and examined. Awake with underlying organic brain/dementia. Chart was reviewed Denies chest pain or shortness of breath - Current Medication List Current Medications: Active Medications Acetaminophen (Tylenol Suppository -) 650 mg [place] Q4H PRN PRN Reason: FEVER OR PAIN Atropine Sulfate (Atropine 1% Ophth. Solution -) 1 drop OU BID [facility] Last Admin: 01/25/17 00:07 Dose: 1 drop Diltiazem HCl (Cardizem Injection -) 10 mg IVPUSH Q4H PRN Last Admin: 01/25/17 04:30 Dose: 10 mg Enoxaparin Sodium (Lovenox -) 30 mg SQ DAILY [facility] Last Admin: 01/24/17 10:04 Dose: 30 mg Guaifenesin (Robitussin -) 10 ml PO Q4H PRN PRN Reason: COUGH Ertapenem 1 gm/ Sodium (Chloride) 50 mls @ 50 mls/hr IVPB DAILY [facility] PRN Reason: Protocol Last Admin: 01/24/17 11:29 Dose: 50 mls/hr Dextrose (D5w -) 1,000 mls @ 83 mls/hr IV .Q12H3M [facility] Last Admin: 01/24/17 01:40 Dose: 83 mls/hr Latanoprost (Xalatan 0.005% Eye Drops -) 1 drop OU HS [facility] Last Admin: 01/25/17 00:07 Dose: 1 drop Nystatin (Nystatin Oral Suspension -) 500,000 units PO Q6HPO [facility] Last Admin: 01/25/17 05:56 Dose: Not Given - Objective Vital Signs: Vital Signs Temperature 97.4 F L 01/25/17 08:43 Pulse Rate 98 H 01/25/17 08:43 Respiratory Rate 22 01/25/17 08:43 Blood Pressure 91/54 01/25/17 08:43 O2 Sat by Pulse Oximetry (%) 94 L 01/24/17 22:00 Neck: Yes: Supple Cardiovascular: Yes: Regular Rate and Rhythm, S1, S2 Respiratory: Yes: Diminished Gastrointestinal: Yes: Normal Bowel Sounds, Soft. 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.8 - OTHER FEMALE GENITAL TRACT FISTULAE (3) Rectal bleed Code(s): K62.5 - HEMORRHAGE OF ANUS AND RECTUM (4) Syncope Code(s): R55 - SYNCOPE AND COLLAPSE Qualifiers: Syncope type: unspecified Qualified Code(s): R55 - Syncope and collapse (5) UTI (urinary tract infection) Code(s): N39.0 - URINARY TRACT INFECTION, SITE NOT SPECIFIED Qualifiers: Urinary tract infection type: acute cystitis Hematuria presence: without hematuria Qualified Code(s): N30.00 - Acute cystitis without hematuria (6) CAD (coronary artery disease) Code(s): I25.10 - ATHSCL HEART DISEASE OF [place] CORONARY ARTERY W/O ANG PCTRS Qualifiers: Coronary Disease-Associated Artery/Lesion type: [place] artery [place] vs. transplanted heart: [place] heart Associated angina: without angina Qualified Code(s): I25.10 - Atherosclerotic heart disease of [place] coronary artery without angina pectoris (7) Dementia Code(s): F03.90 - UNSPECIFIED DEMENTIA WITHOUT BEHAVIORAL DISTURBANCE Qualifiers: Dementia type: unspecified type Dementia behavioral disturbance: with behavioral disturbance Qualified Code(s): F03.91 - Unspecified dementia with behavioral disturbance; F10.97 - Alcohol use, unspecified with alcohol- induced persisting dementia (8) Failure to thrive Code(s): QYN2016 - (9) Hip fracture Code(s): S72.009A - FRACTURE OF UNSP PART OF NECK OF UNSP FEMUR, INIT (10) History of hemiarthroplasty of left hip Code(s): Z96.642 - PRESENCE OF LEFT ARTIFICIAL HIP JOINT (11) Hx of CABG Code(s): Z95.1 - PRESENCE OF AORTOCORONARY BYPASS GRAFT (12) Hyperlipidemia Code(s): E78.5 - HYPERLIPIDEMIA, UNSPECIFIED Qualifiers: Hyperlipidemia type: pure hypercholesterolemia Qualified Code(s): E78.00 - Pure hypercholesterolemia, unspecified; E78.0 - Pure hypercholesterolemia (13) Hypertension Code(s): I10 - ESSENTIAL (PRIMARY) HYPERTENSION Qualifiers: Hypertension type: essential hypertension Qualified Code(s): I10 - Essential (primary) hypertension (14) Paroxysmal atrial fibrillation Code(s): I48.0 - PAROXYSMAL ATRIAL FIBRILLATION Assessment/Plan 1. Syncope - probable neuro-cardiogenic syncope, vasodepressor vs. cardio- inhibitory 2. CAD post CABG angina pectoris, stable 3. Diastolic LV dysfunction with chronic class I NYHA classification LV failure , compensated 4. Paroxysmal atrial fibrillation with recurrence [id number] score of 6 currently in sinus rhythm not on A/C therapy due to explanation as outlined 5. HTN 6. Hyperlipidemia 7. Organic brain syndrome/Dementia 8. Rectal bleed 9. CKD 10. 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 coli UTI and leukocytosis PLAN: 1. Currently on Cardizem 10 IV q4 pending decision regarding whether PO medicine will be feasible. Laurence Muñoz consulted again for advice. 2. Continue Lipitor. Plavix is being held 3. Ideally patient should on A/C therapy considering the above noted history of paroxysmal atrial fibrillation with [id number] score of 6, but not an appropriate candidate for A/C due to risk of fall and GI bleeding risk. Continue DVT prophylaxis 4. Complete antibiotic course, chest PT, O2 and bronchodilator as needed and aspiration precaution Further plans are to follow Migue Bain MD
[2017-01-25] MEDS: ERTAPENEM SODIUM 1 GM in SODIUM CHLORIDE 50 ML IVPB SCH (09:58)
[2017-01-25] MEDS: ENOXAPARIN NA (PORCINE) 30 MG/0.3 ML DISP.SYRIN SQ SCH (09:58)
--- NOTE | 2017-01-25 10:01 | PN ---
Progress Note (short form) - Note Progress Note: Patient alert today and able to speak with me Re; Feeding hunger, thirst and doing PEG or NG. She clearly does not want a Feeding tube or NG tube. The nurse was able to give her some applesauce yesterday with no observable coughing. She needs PO meds for Rapid. A. Fib. I will Laurence Muñoz recheck her today if able. There is now an infiltrate on CXR which developed from last weeks aspiration. The issue is careful hand feeding with some success VS SNF or [place] for just comfort care. No Family; DNR/DNI On Exam: Vital Signs Temp 97.4 F L 01/25/17 08:43 Pulse 98 H 01/25/17 08:43 Resp 22 01/25/17 08:43 BP 91/54 01/25/17 08:43 Pulse Ox 94 L 01/24/17 22:00 Intake & Output 01/24/17 01/24/17 01/25/17 11:59 23:59 11:59 Intake Total 900 0 Balance 900 0 Weight 106 lb 2 oz Intake: IV 900 D5w - 1,000 ml @ 83 mls/ 900 hr IV .Q12H3M [facility] Rx#: [id number] Oral 0 Other: Voiding Method Incontinent Incontinent Incontinent # Unmeasured Voids Void 1 Bowel Movement No Weight Measurement Method Standing Scale Alert Few rhonchi base Cor Irreg Abd: Soft Ext: No edema Abnormal Lab Results 01/25/17 01/25/17 05:48 05:48 MPV 7.2 L Carbon Dioxide 34 H Anion Gap 6 L Creatinine 0.5 L D Calcium 8.4 L IMP: Aspiration and Pulmonary Infiltrate Paroxysmal A. 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 - OTHER FEMALE GENITAL TRACT FISTULAE (3) UTI (urinary tract infection) Code(s): N39.0 - URINARY TRACT INFECTION, SITE NOT SPECIFIED Qualifiers: Urinary tract infection type: acute cystitis Hematuria presence: without hematuria Qualified Code(s): N30.00 - Acute cystitis without hematuria (4) Afib Code(s): I48.91 - UNSPECIFIED ATRIAL FIBRILLATION Qualifiers: Atrial fibrillation type: paroxysmal Qualified Code(s): I48.0 - Paroxysmal atrial fibrillation (5) CAD (coronary artery disease) Code(s): I25.10 - ATHSCL HEART DISEASE OF [place] CORONARY ARTERY W/O ANG PCTRS Qualifiers: Coronary Disease-Associated Artery/Lesion type: [place] artery [place] vs. transplanted heart: [place] heart Associated angina: without angina Qualified Code(s): I25.10 - Atherosclerotic heart disease of [place] coronary artery without angina pectoris (6) Fall Code(s): W19.XXXA - UNSPECIFIED FALL, INITIAL ENCOUNTER Qualifiers: Encounter type: initial encounter Qualified Code(s): W19.XXXA - Unspecified fall, initial encounter
--- NOTE | 2017-01-25 10:39 | PN ---
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 Blount needs PO meds for Rapid. A. Fib. Noted infiltrate on CXR which developed from last weeks aspiration. Plan:careful hand feeding with some success VS SNF or [place] for just comfort care. No Family; DNR/DNI Pt is verbal, confused. Some pooling of saliva, secretions in upper airway, sucttioned from posterior pharynx. Pt is able to cough upon command, bringing secretions up with successful suctioning. Swallowing reassessed with nursing present. Overtly, pt seemed to be able to tolerated 1/4 tsp applesauce and small sips of thick liquid, while seated fully upright and cued to swallow. Vocal quality assessed post swallow with no significant vocal wetness noted. Per mbs last week, oral-pharyngeal dyscoordination resulting in aspiration on puree. Silent aspiration can not be r/o at bedside. Pt is DNI/DNI and options for d/c plan are noted. Selected Entries 01/24/17 01/24/17 01/24/17 02:49 10:00 16:00 Supper Temperature 97.5 F L 97.8 F 97.9 F 01/24/17 01/24/17 01/24/17 17:00 20:23 22:00 Supper NPO Temperature 98.0 F 97.9 F 01/25/17 01/25/17 04:04 08:43 Supper Temperature 97.5 F L 97.4 F L Laboratory Tests 01/22/17 01/23/17 01/24/17 05:35 06:05 05:42 WBC 16.9 H 12.3 H 7.8 D 01/25/17 05:48 WBC 7.7 REC: trial of magic cup, limited puree, honey thick liquid. Encourage self feeding to improve oral- pharyngeal swallow coordination. Seat pt fully upright , head in neutral or flexed position. Tell pt "small sip" "swallow". Monitor voicing for wetness, throat clear, cough. Suction tp posterior pharynx as needed. NPO if increased upper airway congestion noted.
--- NOTE | 2017-01-25 11:33 | PN ---
Progress Note, Physician History of Present Illness: pulmonary alert,nad,-cp,-sob - Current Medication List Current Medications: Active Medications Acetaminophen (Tylenol Suppository -) 650 mg [place] Q4H PRN PRN Reason: FEVER OR PAIN Atropine Sulfate (Atropine 1% Ophth. Solution -) 1 drop OU BID [facility] Last Admin: 01/25/17 09:59 Dose: 1 drop Diltiazem HCl (Cardizem Injection -) 10 mg IVPUSH Q4H PRN Last Admin: 01/25/17 04:30 Dose: 10 mg Enoxaparin Sodium (Lovenox -) 30 mg SQ DAILY [facility] Last Admin: 01/25/17 09:58 Dose: 30 mg Guaifenesin (Robitussin -) 10 ml PO Q4H PRN PRN Reason: COUGH Ertapenem 1 gm/ Sodium (Chloride) 50 mls @ 50 mls/hr IVPB DAILY [facility] PRN Reason: Protocol Last Admin: 01/25/17 09:58 Dose: 50 mls/hr Dextrose (D5w -) 1,000 mls @ 83 mls/hr IV .Q12H3M [facility] Last Admin: 01/24/17 01:40 Dose: 83 mls/hr Latanoprost (Xalatan 0.005% Eye Drops -) 1 drop OU HS [facility] Last Admin: 01/25/17 00:07 Dose: 1 drop Nystatin (Nystatin Oral Suspension -) 500,000 units PO Q6HPO [facility] Last Admin: 01/25/17 05:56 Dose: Not Given - Objective Vital Signs: Vital Signs Temperature 97.4 F L 01/25/17 08:43 Pulse Rate 98 H 01/25/17 08:43 Respiratory Rate 22 01/25/17 08:43 Blood Pressure 91/54 01/25/17 08:43 O2 Sat by Pulse Oximetry (%) 94 L 01/24/17 22:00 Constitutional: Yes: Calm, Thin Eyes: Yes: WNL HENT: Yes: WNL, Tonsillar Exudate Cardiovascular: Yes: Pulse Irregular, S1, S2 Respiratory: Yes: Diminished Gastrointestinal: Yes: Normal Bowel Sounds, Soft Extremities: Yes: WNL Edema: No Labs: CBC, BMP 01/25/17 05:48 01/25/17 05:48 INR, PTT INR 1.12 (0.82-1.09) 01/15/17 14:30 - ....Imaging X-ray: Report Reviewed, Image Reviewed (lll infiltrate) Assessment/Plan A/P Syncope Acute on Chronic Diastolic Heart Failure CAD s/p CABG Paroxysmal Atrial Fibrillation ESBL E Coli UTI HTN h/o GI Bleed CKD Dementia Pneumonia - antibiotics - aspiration precautions - O2 to keep SpO2 >90% - inhaled bronchodilators - rate/rhythm control - DVT prophylaxis - pt DNR/DNI - f/u chest x-ray DR ELIZABETH Problem List - Problems (1) Syncope Code(s): R55 - SYNCOPE AND COLLAPSE Qualifiers: Syncope type: unspecified Qualified Code(s): R55 - Syncope and collapse (2) UTI (urinary tract infection) Code(s): N39.0 - URINARY TRACT INFECTION, SITE NOT SPECIFIED Qualifiers: Urinary tract infection type: acute cystitis Hematuria presence: without hematuria Qualified Code(s): N30.00 - Acute cystitis without hematuria (3) Afib Code(s): I48.91 - UNSPECIFIED ATRIAL FIBRILLATION Qualifiers: Atrial fibrillation type: paroxysmal Qualified Code(s): I48.0 - Paroxysmal atrial fibrillation (4) CAD (coronary artery disease) Code(s): I25.10 - ATHSCL HEART DISEASE OF [place] CORONARY ARTERY W/O ANG PCTRS Qualifiers: Coronary Disease-Associated Artery/Lesion type: [place] artery [place] vs. transplanted heart: [place] heart Associated angina: without angina Qualified Code(s): I25.10 - Atherosclerotic heart disease of [place] coronary artery without angina pectoris (5) Dementia Code(s): F03.90 - UNSPECIFIED DEMENTIA WITHOUT BEHAVIORAL DISTURBANCE Qualifiers: Dementia type: unspecified type Dementia behavioral disturbance: with behavioral disturbance Qualified Code(s): F03.91 - Unspecified dementia with behavioral disturbance; F10.97 - Alcohol use, unspecified with alcohol- induced persisting dementia
--- NOTE | 2017-01-25 15:17 | PN ---
Progress Note, Physician History of Present Illness: patient looks much better no new issues - Current Medication List Current Medications: Active Medications Acetaminophen (Tylenol Suppository -) 650 mg [place] Q4H PRN PRN Reason: FEVER OR PAIN Atropine Sulfate (Atropine 1% Ophth. Solution -) 1 drop OU BID [facility] Last Admin: 01/25/17 09:59 Dose: 1 drop Diltiazem HCl (Cardizem Injection -) 10 mg IVPUSH Q4H PRN Last Admin: 01/25/17 04:30 Dose: 10 mg Enoxaparin Sodium (Lovenox -) 30 mg SQ DAILY [facility] Last Admin: 01/25/17 09:58 Dose: 30 mg Guaifenesin (Robitussin -) 10 ml PO Q4H PRN PRN Reason: COUGH Ertapenem 1 gm/ Sodium (Chloride) 50 mls @ 50 mls/hr IVPB DAILY [facility] PRN Reason: Protocol Last Admin: 01/25/17 09:58 Dose: 50 mls/hr Dextrose (D5w -) 1,000 mls @ 83 mls/hr IV .Q12H3M [facility] Last Admin: 01/24/17 01:40 Dose: 83 mls/hr Latanoprost (Xalatan 0.005% Eye Drops -) 1 drop OU HS [facility] Last Admin: 01/25/17 00:07 Dose: 1 drop Nystatin (Nystatin Oral Suspension -) 500,000 units PO Q6HPO [facility] Last Admin: 01/25/17 12:53 Dose: 500,000 units - Objective Vital Signs: Vital Signs Temperature 97.4 F L 01/25/17 08:43 Pulse Rate 98 H 01/25/17 08:43 Respiratory Rate 22 01/25/17 09:00 Blood Pressure 91/54 01/25/17 08:43 O2 Sat by Pulse Oximetry (%) 94 L 01/25/17 09:00 Constitutional: Yes: No Distress, Calm Cardiovascular: Yes: Regular Rate and Rhythm Respiratory: Yes: Regular, Poor Air Entry Gastrointestinal: Yes: Normal Bowel Sounds, Soft Musculoskeletal: Yes: WNL Extremities: Yes: WNL Neurological: Yes: Alert, Other Psychiatric: Yes: Alert Labs: CBC, BMP 01/25/17 05:48 01/25/17 05:48 INR, PTT INR 1.12 (0.82-1.09) 01/15/17 14:30 Assessment/Plan Problem List - Problems (1) Syncope Code(s): R55 - SYNCOPE AND COLLAPSE Qualifiers: Syncope type: unspecified Qualified Code(s): R55 - Syncope and collapse (2) CVA (cerebral vascular accident) Code(s): I63.9 - CEREBRAL INFARCTION, UNSPECIFIED (3) Afib Code(s): I48.91 - UNSPECIFIED ATRIAL FIBRILLATION Qualifiers: Atrial fibrillation type: paroxysmal Qualified Code(s): I48.0 - Paroxysmal atrial fibrillation (4) CAD (coronary artery disease) Code(s): I25.10 - ATHSCL HEART DISEASE OF [place] CORONARY ARTERY W/O ANG PCTRS Qualifiers: (5) Dementia Code(s): F03.90 - UNSPECIFIED DEMENTIA WITHOUT BEHAVIORAL DISTURBANCE (6) Hyperlipidemia Code(s): E78.5 - HYPERLIPIDEMIA, UNSPECIFIED Qualifiers: (7) Hypertension Code(s): I10 - ESSENTIAL (PRIMARY) HYPERTENSION 8 uti patient tolerating oral plan continue current mgmt conitnue abx asp precautions rest as per primary team
[2017-01-25] MEDS: DEXTROSE 5%-WATER - 1,000 ML IV SCH ×2 (20:39→22:50)
[2017-01-26] MEDS: NYSTATIN 500,000 UNITS/5 ML SUSPENSION PO SCH ×5 (00:49→23:56)
[2017-01-26] MEDS ORDERED: PT OWN MED DRAWER 7, Y5N ONE (04:52)
[2017-01-26 07:51] LABS: ANION GAP 6 (8-16); CALCIUM 7.7 mg/dL (8.5-10.1); CO2 34 mmol/L (21-32); CREATININE 0.3 mg/dL (0.55-1.02); DIGOXIN LEVEL 0.3498 ng/ml (0.8-2.0); GLUCOSE,RANDOM 79 mg/dL (74-106)
[2017-01-26] MEDS: ERTAPENEM SODIUM 1 GM in SODIUM CHLORIDE 50 ML IVPB SCH (10:26)
[2017-01-26] MEDS: ENOXAPARIN NA (PORCINE) 30 MG/0.3 ML DISP.SYRIN SQ SCH (10:26)
[2017-01-26] MEDS: ATROPINE SO4 1% OPHTH SOLN 5 ML BOTTLE OU SCH ×2 (10:27→21:10)
[2017-01-26] MEDS ORDERED: METOPROLOL TARTRATE 50 MG TABLET (FP) PO SCH (10:30)
--- NOTE | 2017-01-26 11:27 | PN ---
Progress Note, Physician History of Present Illness: PULMONARY ALERT,NAD,-SOB,-CP - Current Medication List Current Medications: Active Medications Acetaminophen (Tylenol Suppository -) 650 mg [place] Q4H PRN PRN Reason: FEVER OR PAIN Atropine Sulfate (Atropine 1% Ophth. Solution -) 1 drop OU BID [facility] Last Admin: 01/26/17 10:27 Dose: 1 drop Diltiazem HCl (Cardizem Injection -) 10 mg IVPUSH Q4H PRN Last Admin: 01/25/17 04:30 Dose: 10 mg Enoxaparin Sodium (Lovenox -) 30 mg SQ DAILY [facility] Last Admin: 01/26/17 10:26 Dose: 30 mg Guaifenesin (Robitussin -) 10 ml PO Q4H PRN PRN Reason: COUGH Ertapenem 1 gm/ Sodium (Chloride) 50 mls @ 50 mls/hr IVPB DAILY [facility] PRN Reason: Protocol Last Admin: 01/26/17 10:26 Dose: 50 mls/hr Dextrose (D5w -) 1,000 mls @ 50 mls/hr IV ASDIR [facility] Last Admin: 01/25/17 22:50 Dose: 50 mls/hr Potassium Chloride (Potassium Chloride 10 Meq Premix Ivpb -) 100 mls @ 100 mls/ hr IVPB Q60M [facility] Stop: 01/26/17 11:44 Latanoprost (Xalatan 0.005% Eye Drops -) 1 drop OU HS [facility] Last Admin: 01/25/17 22:55 Dose: 1 drop Metoprolol Tartrate (Lopressor -) 50 mg PO DAILY [facility] Last Admin: 01/26/17 10:27 Dose: 50 mg Nystatin (Nystatin Oral Suspension -) 500,000 units PO Q6HPO [facility] Last Admin: 01/26/17 06:36 Dose: Not Given - Objective Vital Signs: Vital Signs Temperature 97.7 F 01/26/17 05:41 Pulse Rate 82 01/26/17 05:41 Respiratory Rate 20 01/26/17 05:41 Blood Pressure 132/64 01/26/17 05:41 O2 Sat by Pulse Oximetry (%) 92 L 01/25/17 22:00 Constitutional: Yes: Calm, Thin Eyes: Yes: WNL HENT: Yes: WNL Neck: Yes: WNL Cardiovascular: Yes: Pulse Irregular, S1, S2 Respiratory: Yes: Rales (BIBASILAR CRACKLES) Gastrointestinal: Yes: Normal Bowel Sounds, Soft Extremities: Yes: WNL Edema: No Labs: CBC, BMP 01/25/17 05:48 01/26/17 05:35 INR, PTT INR 1.12 (0.82-1.09) 01/15/17 14:30 Assessment/Plan A/P Syncope Acute on Chronic Diastolic Heart Failure CAD s/p CABG Paroxysmal Atrial Fibrillation ESBL E Coli UTI HTN h/o GI Bleed CKD Dementia Pneumonia - antibiotics - aspiration precautions - O2 to keep SpO2 >90% - inhaled bronchodilators - rate/rhythm control - DVT prophylaxis - pt DNR/DNI DR ELIZABETH Problem List - Problems (1) Syncope Code(s): R55 - SYNCOPE AND COLLAPSE Qualifiers: Syncope type: unspecified Qualified Code(s): R55 - Syncope and collapse (2) UTI (urinary tract infection) Code(s): N39.0 - URINARY TRACT INFECTION, SITE NOT SPECIFIED Qualifiers: Urinary tract infection type: acute cystitis Hematuria presence: without hematuria Qualified Code(s): N30.00 - Acute cystitis without hematuria (3) Afib Code(s): I48.91 - UNSPECIFIED ATRIAL FIBRILLATION Qualifiers: Atrial fibrillation type: paroxysmal Qualified Code(s): I48.0 - Paroxysmal atrial fibrillation (4) CAD (coronary artery disease) Code(s): I25.10 - ATHSCL HEART DISEASE OF [place] CORONARY ARTERY W/O ANG PCTRS Qualifiers: Coronary Disease-Associated Artery/Lesion type: [place] artery [place] vs. transplanted heart: [place] heart Associated angina: without angina Qualified Code(s): I25.10 - Atherosclerotic heart disease of [place] coronary artery without angina pectoris (5) Dementia Code(s): F03.90 - UNSPECIFIED DEMENTIA WITHOUT BEHAVIORAL DISTURBANCE Qualifiers: Dementia type: unspecified type Dementia behavioral disturbance: with behavioral disturbance Qualified Code(s): F03.91 - Unspecified dementia with behavioral disturbance; F10.97 - Alcohol use, unspecified with alcohol- induced persisting dementia
[2017-01-26] MEDS ORDERED: KCL 10 MEQ IVPB 100 ML IVPB SCH (12:00)
--- NOTE | 2017-01-26 12:28 | PN ---
Progress Note, Physician Chief Complaint: Events noted Currently remains in sinus rhythm History of Present Illness: Patient was seen and examined. Awake with underlying organic brain/dementia. Chart was reviewed Denies chest pain or shortness of breath - Current Medication List Current Medications: Active Medications Acetaminophen (Tylenol Suppository -) 650 mg [place] Q4H PRN PRN Reason: FEVER OR PAIN Atropine Sulfate (Atropine 1% Ophth. Solution -) 1 drop OU BID [facility] Last Admin: 01/26/17 10:27 Dose: 1 drop Diltiazem HCl (Cardizem Injection -) 10 mg IVPUSH Q4H PRN Last Admin: 01/25/17 04:30 Dose: 10 mg Enoxaparin Sodium (Lovenox -) 30 mg SQ DAILY [facility] Last Admin: 01/26/17 10:26 Dose: 30 mg Guaifenesin (Robitussin -) 10 ml PO Q4H PRN PRN Reason: COUGH Ertapenem 1 gm/ Sodium (Chloride) 50 mls @ 50 mls/hr IVPB DAILY [facility] PRN Reason: Protocol Last Admin: 01/26/17 10:26 Dose: 50 mls/hr Dextrose (D5w -) 1,000 mls @ 50 mls/hr IV ASDIR [facility] Last Admin: 01/25/17 22:50 Dose: 50 mls/hr Potassium Chloride (Potassium Chloride 10 Meq Premix Ivpb -) 100 mls @ 100 mls/ hr IVPB Q60M [facility] Stop: 01/26/17 12:59 Last Admin: 01/26/17 12:09 Dose: 100 mls/hr Latanoprost (Xalatan 0.005% Eye Drops -) 1 drop OU HS [facility] Last Admin: 01/25/17 22:55 Dose: 1 drop Metoprolol Tartrate (Lopressor -) 50 mg PO DAILY [facility] Last Admin: 01/26/17 10:27 Dose: 50 mg Nystatin (Nystatin Oral Suspension -) 500,000 units PO Q6HPO [facility] Last Admin: 01/26/17 12:09 Dose: 500,000 units - Objective Vital Signs: Vital Signs Temperature 97.7 F 01/26/17 05:41 Pulse Rate 82 01/26/17 05:41 Respiratory Rate 20 01/26/17 05:41 Blood Pressure 132/64 01/26/17 05:41 O2 Sat by Pulse Oximetry (%) 92 L 01/25/17 22:00 Neck: Yes: Supple Cardiovascular: Yes: Regular Rate and Rhythm, S1, S2 Respiratory: Yes: Diminished Gastrointestinal: Yes: Normal Bowel Sounds, Soft. 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 - OTHER FEMALE GENITAL TRACT FISTULAE (3) Rectal bleed Code(s): K62.5 - HEMORRHAGE OF ANUS AND RECTUM (4) Syncope Code(s): R55 - SYNCOPE AND COLLAPSE Qualifiers: Syncope type: unspecified Qualified Code(s): R55 - Syncope and collapse (5) UTI (urinary tract infection) Code(s): N39.0 - URINARY TRACT INFECTION, SITE NOT SPECIFIED Qualifiers: Urinary tract infection type: acute cystitis Hematuria presence: without hematuria Qualified Code(s): N30.00 - Acute cystitis without hematuria (6) CAD (coronary artery disease) Code(s): I25.10 - ATHSCL HEART DISEASE OF [place] CORONARY ARTERY W/O ANG PCTRS Qualifiers: Coronary Disease-Associated Artery/Lesion type: [place] artery [place] vs. transplanted heart: [place] heart Associated angina: without angina Qualified Code(s): I25.10 - Atherosclerotic heart disease of [place] coronary artery without angina pectoris (7) Dementia Code(s): F03.90 - UNSPECIFIED DEMENTIA WITHOUT BEHAVIORAL DISTURBANCE Qualifiers: Dementia type: unspecified type Dementia behavioral disturbance: with behavioral disturbance Qualified Code(s): F03.91 - Unspecified dementia with behavioral disturbance; F10.97 - Alcohol use, unspecified with alcohol- induced persisting dementia (8) Failure to thrive Code(s): [id number] - (9) Hip fracture Code(s): S72.009A - FRACTURE OF UNSP PART OF NECK OF UNSP FEMUR, INIT (10) History of hemiarthroplasty of left hip Code(s): Z96.642 - PRESENCE OF LEFT ARTIFICIAL HIP JOINT (11) Hx of CABG Code(s): Z95.1 - PRESENCE OF AORTOCORONARY BYPASS GRAFT (12) Hyperlipidemia Code(s): E78.5 - HYPERLIPIDEMIA, UNSPECIFIED Qualifiers: Hyperlipidemia type: pure hypercholesterolemia Qualified Code(s): E78.00 - Pure hypercholesterolemia, unspecified; E78.0 - Pure hypercholesterolemia (13) Hypertension Code(s): I10 - ESSENTIAL (PRIMARY) HYPERTENSION Qualifiers: Hypertension type: essential hypertension Qualified Code(s): I10 - Essential (primary) hypertension (14) Paroxysmal atrial fibrillation Code(s): I48.0 - PAROXYSMAL ATRIAL FIBRILLATION Assessment/Plan 1. Syncope - probable neuro-cardiogenic syncope, vasodepressor vs. cardio- inhibitory 2. CAD post CABG angina pectoris, stable 3. Diastolic LV dysfunction with chronic class I NYHA classification LV failure , compensated 4. Paroxysmal atrial fibrillation with recurrence [id number] score of 6 currently in sinus rhythm not on A/C therapy due to explanation as outlined 5. HTN 6. Hyperlipidemia 7. Organic brain syndrome/Dementia 8. Rectal bleed 9. CKD 10. 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 coli UTI and leukocytosis PLAN: 1. Currently on Cardizem 10 IV q4 PRN and now started on Lopressor PO daily as tolerated. Laurence Muñoz's input noted 2. Continue Lipitor. Plavix is being held 3. Ideally patient should on A/C therapy considering the above noted history of paroxysmal atrial fibrillation with [id number] score of 6, but not an appropriate candidate for A/C due to risk of fall and GI bleeding risk. Continue DVT prophylaxis 4. Complete antibiotic course, chest PT, O2 and bronchodilator as needed and aspiration precaution Further plans are to follow Migue Bain MD
--- NOTE | 2017-01-26 12:45 | PN ---
Progress Note, Physician Chief Complaint: Patient hungry. History of Present Illness: Patient with ASHD s/p CABG, Dementia,Aspiration, Pneumonia, A. Fibrillation and Colouterine fistula seems to be more aware and Alert. Asking to restart feeding as she is hungry. I carefully tried to explain what happened last with sudden coughing and secretions and the 2 evaluations by the speech therapist. She seems to be tolerating applesauce so I will have some critical meds started that can be crushed. I will also have dietary become involved with puree foods if she tolerates these steps today. - Current Medication List Current Medications: Active Medications Acetaminophen (Tylenol Suppository -) 650 mg [place] Q4H PRN PRN Reason: FEVER OR PAIN Atropine Sulfate (Atropine 1% Ophth. Solution -) 1 drop OU BID [facility] Last Admin: 01/26/17 10:27 Dose: 1 drop Clopidogrel Bisulfate (Plavix -) 75 mg PO DAILY [facility] Diltiazem HCl (Cardizem Injection -) 10 mg IVPUSH Q4H PRN Last Admin: 01/25/17 04:30 Dose: 10 mg Enoxaparin Sodium (Lovenox -) 30 mg SQ DAILY [facility] Last Admin: 01/26/17 10:26 Dose: 30 mg Guaifenesin (Robitussin -) 10 ml PO Q4H PRN PRN Reason: COUGH Ertapenem 1 gm/ Sodium (Chloride) 50 mls @ 50 mls/hr IVPB DAILY [facility] PRN Reason: Protocol Last Admin: 01/26/17 10:26 Dose: 50 mls/hr Dextrose (D5w -) 1,000 mls @ 50 mls/hr IV ASDIR [facility] Last Admin: 01/25/17 22:50 Dose: 50 mls/hr Potassium Chloride (Potassium Chloride 10 Meq Premix Ivpb -) 100 mls @ 100 mls/ hr IVPB Q60M [facility] Stop: 01/26/17 12:59 Last Admin: 01/26/17 12:09 Dose: 100 mls/hr Latanoprost (Xalatan 0.005% Eye Drops -) 1 drop OU HS [facility] Last Admin: 01/25/17 22:55 Dose: 1 drop Metoprolol Tartrate (Lopressor -) 50 mg PO DAILY [facility] Last Admin: 01/26/17 10:27 Dose: 50 mg Nystatin (Nystatin Oral Suspension -) 500,000 units PO Q6HPO [facility] Last Admin: 01/26/17 12:09 Dose: 500,000 units - Objective Vital Signs: Vital Signs Temperature 97.7 F 01/26/17 09:00 Pulse Rate 72 01/26/17 09:00 Respiratory Rate 20 01/26/17 09:00 Blood Pressure 105/62 01/26/17 09:00 O2 Sat by Pulse Oximetry (%) 94 L 01/26/17 09:00 Constitutional: Yes: Calm Eyes: Yes: Conjunctiva Clear Cardiovascular: Yes: Regular Rate and Rhythm, Other (Not in A. Fib now) Respiratory: Yes: Rhonchi (few bilateral rhonchi) Gastrointestinal: Yes: Soft. No: Tenderness Genitourinary: No: [place] Present Edema: No Neurological: Yes: Alert Labs: CBC, BMP 01/25/17 05:48 01/26/17 05:35 INR, PTT INR 1.12 (0.82-1.09) 01/15/17 14:30 Problem List - Problems (1) Pneumonia, aspiration Assessment/Plan: On IV antibiotics. CXR noted. Code(s): J69.0 - PNEUMONITIS DUE TO INHALATION OF FOOD AND VOMIT (2) Afib Assessment/Plan: Back in sinus rhythm when seen today. Will try to resume Metoprolol tartrate as ER cannot be crushed. Code(s): I48.91 - UNSPECIFIED ATRIAL FIBRILLATION Qualifiers: Atrial fibrillation type: paroxysmal Qualified Code(s): I48.0 - Paroxysmal atrial fibrillation (3) UTI (urinary tract infection) Assessment/Plan: ON IV RX as per BENJAMIN SPANGLER. Code(s): N39.0 - URINARY TRACT INFECTION, SITE NOT SPECIFIED Qualifiers: Urinary tract infection type: acute cystitis Hematuria presence: without hematuria Qualified Code(s): N30.00 - Acute cystitis without hematuria (4) Syncope Assessment/Plan: No recurrence since hospital admission. Code(s): R55 - SYNCOPE AND COLLAPSE Qualifiers: Syncope type: unspecified Qualified Code(s): R55 - Syncope and collapse (5) Colouterine fistula Assessment/Plan: Could not tolerate po prep so CAT has to be postponed. Code(s): N82.8 - OTHER FEMALE GENITAL TRACT FISTULAE (6) CAD (coronary artery disease) Assessment/Plan: Followed by Cardiology. Code(s): I25.10 - ATHSCL HEART DISEASE OF [place] CORONARY ARTERY W/O ANG PCTRS Qualifiers: Coronary Disease-Associated Artery/Lesion type: [place] artery [place] vs. transplanted heart: [place] heart Associated angina: without angina Qualified Code(s): I25.10 - Atherosclerotic heart disease of [place] coronary artery without angina pectoris (7) Fall Assessment/Plan: Not a candidate for anticoagulation but I did resume Plavix (crushed). Code(s): W19.XXXA - UNSPECIFIED FALL, INITIAL ENCOUNTER Qualifiers: Encounter type: initial encounter Qualified Code(s): W19.XXXA - Unspecified fall, initial encounter
--- NOTE | 2017-01-26 12:53 | PN ---
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 No overt signs of aspiration reported or observed. Continue trial of magic cup, puree, honey thick liquid. Encourage self feeding to improve oral- pharyngeal swallow coordination. Seat pt fully upright, head in neutral or flexed position. Tell pt "small sip" "swallow". Monitor voicing for wetness, throat clear, cough. Suction tp posterior pharynx as needed. NPO if increased upper airway congestion noted.
[2017-01-26] MEDS: LATANOPROST 0.005% OPHTH SOLN 2.5ML BOTTLE OU SCH (21:11)
[2017-01-26] MEDS: DEXTROSE 5%-WATER - 1,000 ML IV SCH (22:50)
[2017-01-27] MEDS: NYSTATIN 500,000 UNITS/5 ML SUSPENSION PO SCH ×3 (07:28→17:12)
[2017-01-27 08:10] LABS: ANION GAP 7 (8-16); CO2 36 mmol/L (21-32); GLUCOSE,RANDOM 79 mg/dL (74-106)
[2017-01-27 08:11] LABS: CREATININE 0.4 mg/dL (0.55-1.02)
--- NOTE | 2017-01-27 09:04 | PN ---
Progress Note (short form) - Note Progress Note: Patient lethargic this AM; slightly congested. Vest restraint still needed. Tolerating feedings On Exam: Vital Signs Temp 98.1 F 01/26/17 21:05 Pulse 75 01/26/17 21:05 Resp 20 01/26/17 21:05 BP 115/47 01/26/17 21:05 Pulse Ox 97 01/26/17 21:00 Intake & Output 01/26/17 01/26/17 01/27/17 11:59 23:59 11:59 Intake Total 560 600 Balance 560 600 Intake: IV 560 D5w - 1,000 ml @ 50 mls/ 560 hr IV [facility] Rx#: [id number] Oral 600 Other: Voiding Method Incontinent Incontinent # Unmeasured Voids Straight Cath 0 Void 2 Bowel Movement Yes Lethargic Chest: few Rhonchi Cor: Reg today Abd: soft Ext: no edema IMP: Aspiration Pneumonia A. Fib Dementia Berhavioral disorder DNR/DNI Plan: Back to SNF when intake more secure IF recurrence of aspiration: [place] Patient has refused EGD and NG tube. Problem List - Problems (1) Pneumonia, aspiration Code(s): J69.0 - PNEUMONITIS DUE TO INHALATION OF FOOD AND VOMIT (2) Afib Code(s): I48.91 - UNSPECIFIED ATRIAL FIBRILLATION Qualifiers: Atrial fibrillation type: paroxysmal Qualified Code(s): I48.0 - Paroxysmal atrial fibrillation (3) UTI (urinary tract infection) Code(s): N39.0 - URINARY TRACT INFECTION, SITE NOT SPECIFIED Qualifiers: Urinary tract infection type: acute cystitis Hematuria presence: without hematuria Qualified Code(s): N30.00 - Acute cystitis without hematuria (4) Syncope Code(s): R55 - SYNCOPE AND COLLAPSE Qualifiers: Syncope type: unspecified Qualified Code(s): R55 - Syncope and collapse (5) 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 transplanted heart: [place] heart Associated angina: without angina Qualified Code(s): I25.10 - Atherosclerotic heart disease of [place] coronary artery without angina pectoris (7) Fall Code(s): W19.XXXA - UNSPECIFIED FALL, INITIAL ENCOUNTER Qualifiers: Encounter type: initial encounter Qualified Code(s): W19.XXXA - Unspecified fall, initial encounter
[2017-01-27] MEDS ORDERED: CLOPIDOGREL BISULFATE 75 MG TABLET (FP) PO SCH (10:00)
[2017-01-27] MEDS: METOPROLOL TARTRATE 50 MG TABLET (FP) PO SCH ×2 (10:02→14:18)
[2017-01-27] MEDS: ATROPINE SO4 1% OPHTH SOLN 5 ML BOTTLE OU SCH ×2 (10:02→21:26)
[2017-01-27] MEDS: CLOPIDOGREL BISULFATE 75 MG TABLET (FP) PO SCH ×2 (10:02→14:18)
[2017-01-27] MEDS: ENOXAPARIN NA (PORCINE) 30 MG/0.3 ML DISP.SYRIN SQ SCH (10:02)
[2017-01-27] MEDS: ERTAPENEM SODIUM 1 GM in SODIUM CHLORIDE 50 ML IVPB SCH (10:20)
--- NOTE | 2017-01-27 12:02 | PN ---
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 Selected Entries 01/26/17 01/26/17 01/26/17 02:00 05:41 09:00 Breakfast Supper Temperature 97.2 F L 97.7 F 97.7 F 01/26/17 01/26/17 01/26/17 10:00 15:03 17:00 Breakfast 50% Supper Temperature 97.8 F 98.1 F 01/26/17 01/26/17 20:40 21:05 Breakfast Supper 50% Temperature 98.1 F Laboratory Tests 01/25/17 05:48 WBC 7.7 Pt is DNR/DNI. Per PMD,plan is: Back to SNF when intake more secure IF recurrence of aspiration: [place] Monitor pulmonary status. Hold PO if too lethargic/congested. Careful po intake.
--- NOTE | 2017-01-27 12:18 | PN ---
Progress Note, Physician History of Present Illness: Maintained in SR on Cardizem IV and oral Lopressor as tolerated, aspiration suspected, more lethargic today. - Current Medication List Current Medications: Active Medications Acetaminophen (Tylenol Suppository -) 650 mg [place] Q4H PRN PRN Reason: FEVER OR PAIN Atropine Sulfate (Atropine 1% Ophth. Solution -) 1 drop OU BID [facility] Last Admin: 01/27/17 10:02 Dose: Not Given Clopidogrel Bisulfate (Plavix -) 75 mg PO DAILY [facility] Last Admin: 01/27/17 10:02 Dose: Not Given Diltiazem HCl (Cardizem Injection -) 10 mg IVPUSH Q4H [facility]N Last Admin: 01/25/17 04:30 Dose: 10 mg Enoxaparin Sodium (Lovenox -) 30 mg SQ DAILY [facility] Last Admin: 01/27/17 10:02 Dose: 30 mg Guaifenesin (Robitussin -) 10 ml PO Q4H PRN PRN Reason: COUGH Ertapenem 1 gm/ Sodium (Chloride) 50 mls @ 50 mls/hr IVPB DAILY [facility] PRN Reason: Protocol Last Admin: 01/27/17 10:20 Dose: 50 mls/hr Dextrose (D5w -) 1,000 mls @ 50 mls/hr IV ASDIR [facility] Last Admin: 01/26/17 22:50 Dose: Not Given Latanoprost (Xalatan 0.005% Eye Drops -) 1 drop OU HS [facility] Last Admin: 01/26/17 21:11 Dose: 1 drop Metoprolol Tartrate (Lopressor -) 50 mg PO DAILY [facility] Last Admin: 01/27/17 10:02 Dose: Not Given Nystatin (Nystatin Oral Suspension -) 500,000 units PO Q6HPO [facility] Last Admin: 01/27/17 12:08 Dose: Not Given - Objective Vital Signs: Vital Signs Temperature 98.1 F 01/26/17 21:05 Pulse Rate 75 01/26/17 21:05 Respiratory Rate 20 01/26/17 21:05 Blood Pressure 115/47 01/26/17 21:05 O2 Sat by Pulse Oximetry (%) 97 01/26/17 21:00 Constitutional: Yes: No Distress, Calm, Thin Neck: Yes: Supple Cardiovascular: Yes: Regular Rate and Rhythm Respiratory: Yes: Regular, Diminished Gastrointestinal: Yes: Soft, Hypoactive Bowel Sounds Edema: No Labs: CBC, BMP 01/25/17 05:48 01/27/17 05:35 INR, PTT INR 1.12 (0.82-1.09) 01/15/17 14:30 Problem List - Problems (1) 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 vs. transplanted heart: [place] heart Associated angina: without angina Qualified Code(s): I25.10 - Atherosclerotic heart disease of [place] coronary artery without angina pectoris (4) Dementia Code(s): F03.90 - UNSPECIFIED DEMENTIA WITHOUT BEHAVIORAL DISTURBANCE Qualifiers: Dementia type: unspecified type Dementia behavioral disturbance: with behavioral disturbance Qualified Code(s): F03.91 - Unspecified dementia with behavioral disturbance; F10.97 - Alcohol use, unspecified with alcohol- induced persisting dementia (5) History of hemiarthroplasty of left hip Code(s): Z96.642 - PRESENCE OF LEFT ARTIFICIAL HIP JOINT (6) Hx of CABG Code(s): Z95.1 - PRESENCE OF AORTOCORONARY BYPASS GRAFT (7) Hyperlipidemia Code(s): E78.5 - HYPERLIPIDEMIA, UNSPECIFIED Qualifiers: Hyperlipidemia type: pure hypercholesterolemia Qualified Code(s): E78.00 - Pure hypercholesterolemia, unspecified; E78.0 - Pure hypercholesterolemia (8) Hypertension Code(s): I10 - ESSENTIAL (PRIMARY) HYPERTENSION Qualifiers: Hypertension type: essential hypertension Qualified Code(s): I10 - Essential (primary) hypertension (9) Paroxysmal atrial fibrillation Code(s): I48.0 - PAROXYSMAL ATRIAL FIBRILLATION (10) UTI (urinary tract infection) Code(s): N39.0 - URINARY TRACT INFECTION, SITE NOT SPECIFIED Qualifiers: Urinary tract infection type: acute cystitis Hematuria presence: without hematuria Qualified Code(s): N30.00 - Acute cystitis without hematuria Assessment/Plan Echocardiography performed yesterday noted no change from study dated 07/30/15 normal LV size and function, AV sclerosis, MAC, mild MR and mild TR 1. Syncope - probable neuro-cardiogenic syncope, vasodepressor vs. cardio- inhibitory 2. CAD post CABG angina pectoris, stable 3. Diastolic LV dysfunction with chronic class I NYHA classification LV failure , compensated 4. Paroxysmal atrial fibrillation with recurrence [id number] score of 6 currently in sinus rhythm not on A/C therapy due to explanation as outlined 5. HTN 6. 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 Rectal bleed 9. CKD 10. 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 coli UTI and leukocytosis PLAN: 1. Currently on Cardizem 10 IV q4 PRN and now started on Lopressor 50 PO daily as tolerated. Laurence Muñoz's input noted 2. Lipitor and Plavix is being held 3. Ideally patient should on A/C therapy considering the above noted history of paroxysmal atrial fibrillation with [id number] score of 6, but not an appropriate candidate for A/C due to risk of fall and GI bleeding risk. Continue DVT prophylaxis 4. Complete antibiotic course, chest PT, O2 and bronchodilator as needed, replete K and aspiration precaution
--- NOTE | 2017-01-27 14:27 | PN ---
Progress Note (short form) - Note Progress Note: PULMONARY NOTES REVIEWED NO SIGNIFICANT CHANGE IN EXAM LABS/MEDS/NOTES/IMAGING/MICRO REVIEWED Syncope Acute on Chronic Diastolic Heart Failure CAD s/p CABG Paroxysmal Atrial Fibrillation ESBL E Coli UTI HTN h/o GI Bleed CKD Dementia Pneumonia - antibiotics - aspiration precautions - O2 to keep SpO2 >90% - inhaled bronchodilators - rate/rhythm control - DVT prophylaxis - pt DNR/DNI Mehran MARES MD
--- NOTE | 2017-01-27 16:55 | PN ---
Progress Note, Physician History of Present Illness: awake very upset that she is not getting her toast alert - Current Medication List Current Medications: Active Medications Acetaminophen (Tylenol Suppository -) [address] Q4H PRN PRN Reason: FEVER OR PAIN Atropine Sulfate (Atropine 1% Ophth. Solution -) 1 drop OU BID [facility] Last Admin: 01/27/17 10:02 Dose: Not Given Clopidogrel Bisulfate (Plavix -) 75 mg PO DAILY [facility] Last Admin: 01/27/17 14:18 Dose: 75 mg Diltiazem HCl (Cardizem Injection -) 10 mg IVPUSH Q4H PRN Last Admin: 01/25/17 04:30 Dose: 10 mg Enoxaparin Sodium (Lovenox -) 30 mg SQ DAILY [facility] Last Admin: 01/27/17 10:02 Dose: 30 mg Guaifenesin (Robitussin -) 10 ml PO Q4H PRN PRN Reason: COUGH Ertapenem 1 gm/ Sodium (Chloride) 50 mls @ 50 mls/hr IVPB DAILY [facility] PRN Reason: Protocol Last Admin: 01/27/17 10:20 Dose: 50 mls/hr Dextrose (D5w -) 1,000 mls @ 50 mls/hr IV ASDIR [facility] Last Admin: 01/26/17 22:50 Dose: Not Given Latanoprost (Xalatan 0.005% Eye Drops -) 1 drop OU HS [facility] Last Admin: 01/26/17 21:11 Dose: 1 drop Metoprolol Tartrate (Lopressor -) 50 mg PO DAILY [facility] Last Admin: 01/27/17 14:18 Dose: 50 mg Nystatin (Nystatin Oral Suspension -) 500,000 units PO Q6HPO [facility] Last Admin: 01/27/17 12:08 Dose: Not Given - Objective Vital Signs: Vital Signs Temperature 98.0 F 01/27/17 14:00 Pulse Rate 96 H 01/27/17 14:00 Respiratory Rate 20 01/27/17 14:00 Blood Pressure 130/71 01/27/17 14:00 O2 Sat by Pulse Oximetry (%) 96 01/27/17 10:00 Constitutional: Yes: Calm, Anxious Cardiovascular: Yes: Regular Rate and Rhythm Respiratory: Yes: Rhonchi Gastrointestinal: Yes: Normal Bowel Sounds, Soft Musculoskeletal: Yes: WNL Extremities: Yes: WNL Neurological: Yes: Alert Psychiatric: Yes: Alert Labs: CBC, BMP 01/25/17 05:48 01/27/17 05:35 INR, PTT INR 1.12 (0.82-1.09) 01/15/17 14:30 Assessment/Plan Problem List - Problems (1) Syncope Code(s): R55 - SYNCOPE AND COLLAPSE Qualifiers: Syncope type: unspecified Qualified Code(s): R55 - Syncope and collapse (2) CVA (cerebral vascular accident) Code(s): I63.9 - CEREBRAL INFARCTION, UNSPECIFIED (3) Afib Code(s): I48.91 - UNSPECIFIED ATRIAL FIBRILLATION Qualifiers: Atrial fibrillation type: paroxysmal Qualified Code(s): I48.0 - Paroxysmal atrial fibrillation (4) CAD (coronary artery disease) Code(s): I25.10 - ATHSCL HEART DISEASE OF [place] CORONARY ARTERY W/O ANG PCTRS Qualifiers: (5) Dementia Code(s): F03.90 - UNSPECIFIED DEMENTIA WITHOUT BEHAVIORAL DISTURBANCE (6) Hyperlipidemia Code(s): E78.5 - HYPERLIPIDEMIA, UNSPECIFIED Qualifiers: (7) Hypertension Code(s): I10 - ESSENTIAL (PRIMARY) HYPERTENSION 8 uti plan continue current mgmt conitnue abx asp precautions rest as per primary team
[2017-01-27] MEDS: LATANOPROST 0.005% OPHTH SOLN 2.5ML BOTTLE OU SCH (21:26)
[2017-01-27] MEDS: DEXTROSE 5%-WATER - 1,000 ML IV SCH (21:27)
[2017-01-28] MEDS: NYSTATIN 500,000 UNITS/5 ML SUSPENSION PO SCH ×4 (01:15→18:06)
[2017-01-28 08:42] LABS: ANION GAP 7 (8-16); CALCIUM 8.3 mg/dL (8.5-10.1); CO2 38 mmol/L (21-32); GLUCOSE,RANDOM 63 mg/dL (74-106)
[2017-01-28 08:43] LABS: CREATININE 0.4 mg/dL (0.55-1.02)
--- NOTE | 2017-01-28 08:51 | PN ---
Progress Note (short form) - Note Progress Note: Patient is alert and conversing well today. Wants to sit in wheelchair and resume PT Tolerating the current feedings and not congested in voice today. CXR: Resolving infiltrate. On Exam: Vital Signs Temp 97.8 F 01/28/17 05:45 Pulse 71 01/28/17 05:45 Resp 20 01/28/17 05:45 BP 124/71 01/28/17 05:45 Pulse Ox 98 01/27/17 22:00 Intake & Output 01/27/17 01/27/17 01/28/17 11:59 23:59 11:59 Intake Total 200 400 Balance 200 400 Intake: IV 400 D5w - 1,000 ml @ 50 mls/ 400 hr IV ASDIR [facility] Rx#: [id number] Oral 200 Other: Voiding Method Incontinent Incontinent Incontinent Bowel Movement Yes Alert Chest: rare rhonchi at bases Tonue: pink; not dry Abd; Soft Ext: 1 healing scab left heel. Abnormal Lab Results 01/27/17 05:35 Potassium 3.4 L Chloride 97 L Carbon Dioxide 36 H Anion Gap 7 L BUN 5 L D Creatinine 0.4 L D Calcium 8.0 L IMP: Aspiration Pneumonia Dementia ASHD S/P CABG A.Fibrillation PLAN: Wheelchair PT ? Increase diet Back to [place] with ? Anchor Problem List - Problems (1) Pneumonia, aspiration Code(s): J69.0 - PNEUMONITIS DUE TO INHALATION OF FOOD AND VOMIT (2) Afib Code(s): I48.91 - UNSPECIFIED ATRIAL FIBRILLATION Qualifiers: Atrial fibrillation type: paroxysmal Qualified Code(s): I48.0 - Paroxysmal atrial fibrillation (3) UTI (urinary tract infection) Code(s): N39.0 - URINARY TRACT INFECTION, SITE NOT SPECIFIED Qualifiers: Urinary tract infection type: acute cystitis Hematuria presence: without hematuria Qualified Code(s): N30.00 - Acute cystitis without hematuria (4) Syncope Code(s): R55 - SYNCOPE AND COLLAPSE Qualifiers: Syncope type: unspecified Qualified Code(s): R55 - Syncope and collapse (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 transplanted heart: [place] heart Associated angina: without angina Qualified Code(s): I25.10 - Atherosclerotic heart disease of [place] coronary artery without angina pectoris (7) Fall Code(s): W19.XXXA - UNSPECIFIED FALL, INITIAL ENCOUNTER Qualifiers: Encounter type: initial encounter Qualified Code(s): W19.XXXA - Unspecified fall, initial encounter
[2017-01-28] MEDS ORDERED: PT OWN MED DRAWER 7, Y5N ONE ×2 (09:18→22:20)
[2017-01-28] MEDS: CLOPIDOGREL BISULFATE 75 MG TABLET (FP) PO SCH (09:29)
[2017-01-28] MEDS: ENOXAPARIN NA (PORCINE) 30 MG/0.3 ML DISP.SYRIN SQ SCH (09:29)
[2017-01-28] MEDS: METOPROLOL TARTRATE 50 MG TABLET (FP) PO SCH (09:29)
[2017-01-28] MEDS: ATROPINE SO4 1% OPHTH SOLN 5 ML BOTTLE OU SCH ×2 (09:30→22:22)
[2017-01-28] MEDS ORDERED: KCL 10 MEQ IVPB 100 ML IVPB SCH (09:30)
[2017-01-28] MEDS: ERTAPENEM SODIUM 1 GM in SODIUM CHLORIDE 50 ML IVPB SCH (10:55)
--- NOTE | 2017-01-28 11:01 | PN ---
Progress Note, Physician History of Present Illness: Maintained in SR on Cardizem IV and oral Lopressor as tolerated, sensorium improved today. - Current Medication List Current Medications: Active Medications Acetaminophen (Tylenol Suppository -) 650 mg [place] Q4H PRN PRN Reason: FEVER OR PAIN Atropine Sulfate (Atropine 1% Ophth. Solution -) 1 drop OU BID [facility] Last Admin: 01/28/17 09:30 Dose: 1 drop Clopidogrel Bisulfate (Plavix -) 75 mg PO DAILY [facility] Last Admin: 01/28/17 09:29 Dose: 75 mg Diltiazem HCl (Cardizem Injection -) 10 mg IVPUSH Q4H PRN Last Admin: 01/25/17 04:30 Dose: 10 mg Enoxaparin Sodium (Lovenox -) 30 mg SQ DAILY [facility] Last Admin: 01/28/17 09:29 Dose: 30 mg Guaifenesin (Robitussin -) 10 ml PO Q4H PRN PRN Reason: COUGH Ertapenem 1 gm/ Sodium (Chloride) 50 mls @ 50 mls/hr IVPB DAILY [facility] PRN Reason: Protocol Last Admin: 01/28/17 10:55 Dose: 50 mls/hr Dextrose (D5w -) 1,000 mls @ 50 mls/hr IV ASDIR [facility] Last Admin: 01/27/17 21:27 Dose: 50 mls/hr Latanoprost (Xalatan 0.005% Eye Drops -) 1 drop OU HS [facility] Last Admin: 01/27/17 21:26 Dose: 1 drop Metoprolol Tartrate (Lopressor -) 50 mg PO DAILY [facility] Last Admin: 01/28/17 09:29 Dose: 50 mg Nystatin (Nystatin Oral Suspension -) 500,000 units PO Q6HPO [facility] Last Admin: 01/28/17 06:12 Dose: 500,000 units - Objective Vital Signs: Vital Signs Temperature 97.8 F 01/28/17 05:45 Pulse Rate 71 01/28/17 05:45 Respiratory Rate 20 01/28/17 05:45 Blood Pressure 124/71 01/28/17 05:45 O2 Sat by Pulse Oximetry (%) 98 01/27/17 22:00 Constitutional: Yes: No Distress, Calm, Thin Neck: Yes: Supple Cardiovascular: Yes: Regular Rate and Rhythm Respiratory: Yes: Regular, Diminished, On Nasal O2 Gastrointestinal: Yes: Normal Bowel Sounds, Soft Edema: No Labs: CBC, BMP 01/25/17 05:48 01/28/17 05:50 INR, PTT INR 1.12 (0.82-1.09) 01/15/17 14:30 - ....Imaging Chest X-ray: Report Reviewed (Resolving LLL infiltrate) Problem List - Problems (1) 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 transplanted heart: [place] heart Associated angina: without angina Qualified Code(s): I25.10 - Atherosclerotic heart disease of [place] coronary artery without angina pectoris (4) Dementia Code(s): F03.90 - UNSPECIFIED DEMENTIA WITHOUT BEHAVIORAL DISTURBANCE Qualifiers: Dementia type: unspecified type Dementia behavioral disturbance: with behavioral disturbance Qualified Code(s): F03.91 - Unspecified dementia with behavioral disturbance; F10.97 - Alcohol use, unspecified with alcohol- induced persisting dementia (5) History of hemiarthroplasty of left hip Code(s): Z96.642 - PRESENCE OF LEFT ARTIFICIAL HIP JOINT (6) Hx of CABG Code(s): Z95.1 - PRESENCE OF AORTOCORONARY BYPASS GRAFT (7) Hyperlipidemia Code(s): E78.5 - HYPERLIPIDEMIA, UNSPECIFIED Qualifiers: Hyperlipidemia type: pure hypercholesterolemia Qualified Code(s): E78.00 - Pure hypercholesterolemia, unspecified; E78.0 - Pure hypercholesterolemia (8) Hypertension Code(s): I10 - ESSENTIAL (PRIMARY) HYPERTENSION Qualifiers: Hypertension type: essential hypertension Qualified Code(s): I10 - Essential (primary) hypertension (9) Paroxysmal atrial fibrillation Code(s): I48.0 - PAROXYSMAL ATRIAL FIBRILLATION (10) UTI (urinary tract infection) Code(s): N39.0 - URINARY TRACT INFECTION, SITE NOT SPECIFIED Qualifiers: Urinary tract infection type: acute cystitis Hematuria presence: without hematuria Qualified Code(s): N30.00 - Acute cystitis without hematuria Assessment/Plan Echocardiography performed yesterday noted no change from study dated 07/30/15 normal LV size and function, AV sclerosis, MAC, mild MR and mild TR 1. Aspiration Pneumonia improving 2. CAD post CABG angina pectoris, stable 3. Diastolic LV dysfunction with chronic class I NYHA classification LV failure , compensated 4. Paroxysmal atrial fibrillation with recurrence [id number] score of 6 currently in sinus rhythm not on A/C therapy due to explanation as outlined 5. HTN 6. 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 Rectal bleed 9. CKD 10. 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 coli UTI and leukocytosis 12. Syncope - probable neuro-cardiogenic syncope, vasodepressor vs. cardio- inhibitory PLAN: 1. Currently on Cardizem 10 IV q4 PRN and on Lopressor 50 PO daily crushed in applesauce as tolerated. 2. Resumed Plavix 75 qd 3. Ideally patient should on A/C therapy considering the above noted history of paroxysmal atrial fibrillation with [id number] score of 6, but not an appropriate candidate for A/C due to risk of fall and GI bleeding risk. Continue DVT prophylaxis 4. Complete antibiotic course, chest PT, O2 and bronchodilator as needed, replete K and aspiration precaution
--- NOTE | 2017-01-28 11:17 | PN ---
Progress Note, Physician History of Present Illness: PULMONARY ALERT,OOB-CHAIR,-RESP DISTRESS - Current Medication List Current Medications: Active Medications Acetaminophen (Tylenol Suppository -) 650 mg [place] Q4H PRN PRN Reason: FEVER OR PAIN Atropine Sulfate (Atropine 1% Ophth. Solution -) 1 drop OU BID [facility] Last Admin: 01/28/17 09:30 Dose: 1 drop Clopidogrel Bisulfate (Plavix -) 75 mg PO DAILY [facility] Last Admin: 01/28/17 09:29 Dose: 75 mg Diltiazem HCl (Cardizem Injection -) 10 mg IVPUSH Q4H PRN Last Admin: 01/25/17 04:30 Dose: 10 mg Enoxaparin Sodium (Lovenox -) 30 mg SQ DAILY [facility] Last Admin: 01/28/17 09:29 Dose: 30 mg Guaifenesin (Robitussin -) 10 ml PO Q4H PRN PRN Reason: COUGH Ertapenem 1 gm/ Sodium (Chloride) 50 mls @ 50 mls/hr IVPB DAILY [facility] PRN Reason: Protocol Last Admin: 01/28/17 10:55 Dose: 50 mls/hr Dextrose (D5w -) 1,000 mls @ 50 mls/hr IV ASDIR [facility] Last Admin: 01/27/17 21:27 Dose: 50 mls/hr Latanoprost (Xalatan 0.005% Eye Drops -) 1 drop OU HS [facility] Last Admin: 01/27/17 21:26 Dose: 1 drop Metoprolol Tartrate (Lopressor -) 50 mg PO DAILY [facility] Last Admin: 01/28/17 09:29 Dose: 50 mg Nystatin (Nystatin Oral Suspension -) 500,000 units PO Q6HPO [facility] Last Admin: 01/28/17 06:12 Dose: 500,000 units - Objective Vital Signs: Vital Signs Temperature 97.8 F 01/28/17 05:45 Pulse Rate 71 01/28/17 05:45 Respiratory Rate 20 01/28/17 05:45 Blood Pressure 124/71 01/28/17 05:45 O2 Sat by Pulse Oximetry (%) 98 01/27/17 22:00 Constitutional: Yes: Calm, Thin Eyes: Yes: WNL HENT: Yes: WNL Neck: Yes: WNL Cardiovascular: Yes: Pulse Irregular, S1, S2 Respiratory: Yes: Diminished Gastrointestinal: Yes: Normal Bowel Sounds, Soft Extremities: Yes: WNL Edema: No Labs: CBC, BMP 01/25/17 05:48 01/28/17 05:50 INR, PTT INR 1.12 (0.82-1.09) 01/15/17 14:30 Assessment/Plan A/P Syncope Acute on Chronic Diastolic Heart Failure CAD s/p CABG Paroxysmal Atrial Fibrillation ESBL E Coli UTI HTN h/o GI Bleed CKD Dementia Pneumonia - antibiotics as per ID - aspiration precautions - O2 to keep SpO2 >90% - inhaled bronchodilators - rate/rhythm control - DVT prophylaxis - pt DNR/DNI DR ELIZABETH Problem List - Problems (1) Syncope Code(s): R55 - SYNCOPE AND COLLAPSE Qualifiers: Syncope type: unspecified Qualified Code(s): R55 - Syncope and collapse (2) UTI (urinary tract infection) Code(s): N39.0 - URINARY TRACT INFECTION, SITE NOT SPECIFIED Qualifiers: Urinary tract infection type: acute cystitis Hematuria presence: without hematuria Qualified Code(s): N30.00 - Acute cystitis without hematuria (3) Afib Code(s): I48.91 - UNSPECIFIED ATRIAL FIBRILLATION Qualifiers: Atrial fibrillation type: paroxysmal Qualified Code(s): I48.0 - Paroxysmal atrial fibrillation (4) CAD (coronary artery disease) Code(s): I25.10 - ATHSCL HEART DISEASE OF [place] CORONARY ARTERY W/O ANG PCTRS Qualifiers: Coronary Disease-Associated Artery/Lesion type: [place] artery [place] vs. transplanted heart: [place] heart Associated angina: without angina Qualified Code(s): I25.10 - Atherosclerotic heart disease of [place] coronary artery without angina pectoris (5) Dementia Code(s): F03.90 - UNSPECIFIED DEMENTIA WITHOUT BEHAVIORAL DISTURBANCE Qualifiers: Dementia type: unspecified type Dementia behavioral disturbance: with behavioral disturbance Qualified Code(s): F03.91 - Unspecified dementia with behavioral disturbance; F10.97 - Alcohol use, unspecified with alcohol- induced persisting dementia
--- NOTE | 2017-01-28 11:40 | PN ---
Progress Note, ONCOLOGY PHYSICIAN - Note Progress Note: Selected Entries 01/27/17 01/28/17 01/28/17 21:31 02:00 05:45 Breakfast Supper 50% Temperature 97.3 F L 97.8 F 01/28/17 10:42 Breakfast 25% Supper Temperature Laboratory Tests 01/25/17 05:48 WBC 7.7 Improving again, with fair PO mgmt, without congestion or vocal wetness. OOB in chair at nursing station. Continue trial of magic cup, puree, honey thick liquid. Encourage self feeding to improve oral- pharyngeal swallow coordination. Seat pt fully upright, head in neutral or flexed position. Tell pt "small sip" "swallow". Monitor voicing for wetness, throat clear, cough. Suction to posterior pharynx as needed. NPO if increased upper airway congestion noted.
--- NOTE | 2017-01-28 13:59 | PN ---
Progress Note, Physician History of Present Illness: patient doing very well sitting outside in the chair looks like she is at baseline - Current Medication List Current Medications: Active Medications Acetaminophen (Tylenol Suppository -) 650 mg [place] Q4H PRN PRN Reason: FEVER OR PAIN Atropine Sulfate (Atropine 1% Ophth. Solution -) 1 drop OU BID [facility] Last Admin: 01/28/17 09:30 Dose: 1 drop Clopidogrel Bisulfate (Plavix -) 75 mg PO DAILY [facility] Last Admin: 01/28/17 09:29 Dose: 75 mg Diltiazem HCl (Cardizem Injection -) 10 mg IVPUSH Q4H PRN Last Admin: 01/25/17 04:30 Dose: 10 mg Enoxaparin Sodium (Lovenox -) 30 mg SQ DAILY [facility] Last Admin: 01/28/17 09:29 Dose: 30 mg Guaifenesin (Robitussin -) 10 ml PO Q4H PRN PRN Reason: COUGH Ertapenem 1 gm/ Sodium (Chloride) 50 mls @ 50 mls/hr IVPB DAILY [facility] PRN Reason: Protocol Last Admin: 01/28/17 10:55 Dose: 50 mls/hr Dextrose (D5w -) 1,000 mls @ 50 mls/hr IV ASDIR [facility] Last Admin: 01/27/17 21:27 Dose: 50 mls/hr Latanoprost (Xalatan 0.005% Eye Drops -) 1 drop OU HS [facility] Last Admin: 01/27/17 21:26 Dose: 1 drop Metoprolol Tartrate (Lopressor -) 50 mg PO DAILY [facility] Last Admin: 01/28/17 09:29 Dose: 50 mg Nystatin (Nystatin Oral Suspension -) 500,000 units PO Q6HPO [facility] Last Admin: 01/28/17 06:12 Dose: 500,000 units - Objective Vital Signs: Vital Signs Temperature 97.5 F L 01/28/17 10:00 Pulse Rate 80 01/28/17 10:00 Respiratory Rate 20 01/28/17 10:00 Blood Pressure 126/59 01/28/17 10:00 O2 Sat by Pulse Oximetry (%) 91 L 01/28/17 10:00 Constitutional: Yes: No Distress, Calm Cardiovascular: Yes: Regular Rate and Rhythm Respiratory: Yes: Regular, CTA Bilaterally Gastrointestinal: Yes: Normal Bowel Sounds, Soft Musculoskeletal: Yes: WNL Extremities: Yes: WNL Neurological: Yes: Alert, Other Labs: CBC, BMP 01/25/17 05:48 01/28/17 05:50 INR, PTT INR 1.12 (0.82-1.09) 01/15/17 14:30 Assessment/Plan Problem List - Problems (1) Syncope Code(s): R55 - SYNCOPE AND COLLAPSE Qualifiers: Syncope type: unspecified Qualified Code(s): R55 - Syncope and collapse (2) CVA (cerebral vascular accident) Code(s): I63.9 - CEREBRAL INFARCTION, UNSPECIFIED (3) Afib Code(s): I48.91 - UNSPECIFIED ATRIAL FIBRILLATION Qualifiers: Atrial fibrillation type: paroxysmal Qualified Code(s): I48.0 - Paroxysmal atrial fibrillation (4) CAD (coronary artery disease) Code(s): I25.10 - ATHSCL HEART DISEASE OF [place] CORONARY ARTERY W/O ANG PCTRS Qualifiers: (5) Dementia Code(s): F03.90 - UNSPECIFIED DEMENTIA WITHOUT BEHAVIORAL DISTURBANCE (6) Hyperlipidemia Code(s): E78.5 - HYPERLIPIDEMIA, UNSPECIFIED Qualifiers: (7) Hypertension Code(s): I10 - ESSENTIAL (PRIMARY) HYPERTENSION 8 uti plan continue current mgmt conitnue abx asp precautions rest as per primary team total abx duration for 2 weeks
[2017-01-28] MEDS: DEXTROSE 5%-WATER - 1,000 ML IV SCH ×2 (18:38→22:24)
[2017-01-28] MEDS: LATANOPROST 0.005% OPHTH SOLN 2.5ML BOTTLE OU SCH (22:23)
[2017-01-29] MEDS: NYSTATIN 500,000 UNITS/5 ML SUSPENSION PO SCH ×2 (00:40→05:38)
[2017-01-29 08:23] LABS: ANION GAP 6 (8-16); CALCIUM 8.3 mg/dL (8.5-10.1); CO2 35 mmol/L (21-32); CREATININE 0.5 mg/dL (0.55-1.02); GLUCOSE,RANDOM 83 mg/dL (74-106)
--- NOTE | 2017-01-29 09:30 | DS ---
Physical Examination Vital Signs: Vital Signs Temperature 98.2 F 01/29/17 06:00 Pulse Rate 82 01/29/17 06:00 Respiratory Rate 19 01/29/17 06:00 Blood Pressure 131/70 01/29/17 06:00 O2 Sat by Pulse Oximetry (%) 95 01/29/17 06:00 Constitutional: Yes: Calm Eyes: Yes: Conjunctiva Clear Respiratory: Yes: Regular, Rhonchi (rare rhonchi) Gastrointestinal: Yes: Soft Renal/: No: [place] Present Edema: No Integumentary: Yes: Other (healed scab left heel) Neurological: Yes: Alert Labs: CBC, BMP 01/25/17 05:48 01/29/17 05:45 Discharge Summary Reason For Visit: SYNCOPE Current Active Problems Dementia Pneumonia, aspiration (Acute) Rectal bleed (Acute) Syncope (Acute) UTI (urinary tract infection) (Acute) A. Fibrillation(acute) CABG Colouterine fistula Procedures: Principal: Iv antibiotics Other Procedures: CXR;lab; consultants; speech therapist Hospital Course: Slowly improved and is tolerating current diet with no current aspiration. She will be unable to swallow prep for CAT Scan of Abdomen-Pelvis to reevaluate Colouterine fistula; ? re-evaluate if she improves in SNF. Condition: Stable - Instructions Diet, Activity, Other Instructions: Limited puree; honey thick liquids and have patient be head up for meals in neutral or bent forward position to eat. Instruct to sip and swallow. We have needed vest elvi with hx of a fall. Rec: PT Pt. now DNR/DNI; no family. Crush all meds and give with applesauce. Nasal O2 prn. Referrals: Alan Mosley MD [Staff Physician] - Disposition: SNF FACILITY - Home Medications Comprehensive Discharge Medication List: Ambulatory Orders Atorvastatin Ca [Lipitor] 40 mg PO HS 07/09/16 Atropine 1% Ophth. Solution - 0 drop OU BID 07/09/16 Docusate Sodium 100 mg PO BID 07/09/16 Donepezil HCl [Aricept] 10 mg PO DAILY 07/09/16 Escitalopram Oxalate [Lexapro -] 20 mg PO DAILY 07/09/16 Latanoprost 0.005% Eye Drops [Xalatan 0.005% Eye Drops -] 1 drop HS 07/09/16 Acetaminophen Suppository [Tylenol .Suppository -] 650 mg [place] Q4H PRN #0 supp.rect 01/29/17 Guaifenesin [Robitussin -] 10 ml PO Q4H PRN #0 ml 01/29/17 Metoprolol Tartrate [Lopressor -] 50 mg PO DAILY tablet 01/29/17
[2017-01-29] MEDS: METOPROLOL TARTRATE 50 MG TABLET (FP) PO SCH (09:42)
[2017-01-29] MEDS: CLOPIDOGREL BISULFATE 75 MG TABLET (FP) PO SCH (09:42)
[2017-01-29] MEDS: ATROPINE SO4 1% OPHTH SOLN 5 ML BOTTLE OU SCH (09:42)
[2017-01-29 09:48] VITALS: BP 124/76; TEMP 98.7
[2017-01-29 11:08] VITALS: PULSE 74
--- NOTE | 2017-01-29 12:35 | PN ---
Progress Note, Physician Chief Complaint: Events noted Currently remains in sinus rhythm Patient was seen earlier this morning while on 4W prior to discharge History of Present Illness: Patient was seen and examined. Awake with underlying organic brain/dementia. Chart was reviewed Denies chest pain or shortness of breath - Objective Vital Signs: Vital Signs Temperature 98.7 F 01/29/17 08:00 Pulse Rate 74 01/29/17 11:07 Respiratory Rate 19 01/29/17 08:00 Blood Pressure 124/76 01/29/17 08:00 O2 Sat by Pulse Oximetry (%) 97 01/29/17 11:07 Neck: Yes: Supple Cardiovascular: Yes: Regular Rate and Rhythm, S1, S2 Respiratory: Yes: Diminished Gastrointestinal: Yes: Normal Bowel Sounds, Soft. No: Tenderness Edema: No Labs: 01/29/17 05:45 Problem List - Problems (1) CVA (cerebral vascular accident) Code(s): I63.9 - CEREBRAL INFARCTION, UNSPECIFIED (2) [place] fistula Code(s): N82.8 - OTHER FEMALE GENITAL TRACT FISTULAE (3) Rectal bleed Code(s): K62.5 - HEMORRHAGE OF ANUS AND RECTUM (4) Syncope Code(s): R55 - SYNCOPE AND COLLAPSE Qualifiers: Syncope type: unspecified Qualified Code(s): R55 - Syncope and collapse (5) UTI (urinary tract infection) Code(s): N39.0 - URINARY TRACT INFECTION, SITE NOT SPECIFIED Qualifiers: Urinary tract infection type: acute cystitis Hematuria presence: without hematuria Qualified Code(s): N30.00 - Acute cystitis without hematuria (6) CAD (coronary artery disease) Code(s): I25.10 - ATHSCL HEART DISEASE OF [place] CORONARY ARTERY W/O ANG PCTRS Qualifiers: Coronary Disease-Associated Artery/Lesion type: [place] artery [place] vs. transplanted heart: [place] heart Associated angina: without angina Qualified Code(s): I25.10 - Atherosclerotic heart disease of [place] coronary artery without angina pectoris (7) Dementia Code(s): F03.90 - UNSPECIFIED DEMENTIA WITHOUT BEHAVIORAL DISTURBANCE Qualifiers: Dementia type: unspecified type Dementia behavioral disturbance: with behavioral disturbance Qualified Code(s): F03.91 - Unspecified dementia with behavioral disturbance; F10.97 - Alcohol use, unspecified with alcohol- induced persisting dementia (8) Failure to thrive Code(s): [id number] - (9) Hip fracture Code(s): S72.009A - FRACTURE OF UNSP PART OF NECK OF UNSP FEMUR, INIT (10) History of hemiarthroplasty of left hip Code(s): Z96.642 - PRESENCE OF LEFT ARTIFICIAL HIP JOINT (11) Hx of CABG Code(s): Z95.1 - PRESENCE OF AORTOCORONARY BYPASS GRAFT (12) Hyperlipidemia Code(s): E78.5 - HYPERLIPIDEMIA, UNSPECIFIED Qualifiers: Hyperlipidemia type: pure hypercholesterolemia Qualified Code(s): E78.00 - Pure hypercholesterolemia, unspecified; E78.0 - Pure hypercholesterolemia (13) Hypertension Code(s): I10 - ESSENTIAL (PRIMARY) HYPERTENSION Qualifiers: Hypertension type: essential hypertension Qualified Code(s): I10 - Essential (primary) hypertension (14) Paroxysmal atrial fibrillation Code(s): I48.0 - PAROXYSMAL ATRIAL FIBRILLATION Assessment/Plan 1. Syncope - probable neuro-cardiogenic syncope, vasodepressor vs. cardio- inhibitory 2. CAD post CABG angina pectoris, stable 3. Diastolic LV dysfunction with chronic class I NYHA classification LV failure , compensated 4. Paroxysmal atrial fibrillation with recurrence [id number] score of 6 currently in sinus rhythm not on A/C therapy due to explanation as outlined 5. HTN 6. Hyperlipidemia 7. Organic brain syndrome/Dementia 8. Rectal bleed 9. CKD 10. 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 coli UTI and leukocytosis PLAN: 1. Continue Lopressor as tolerated 2. Continue Lipitor. 3. Ideally patient should on A/C therapy considering the above noted history of paroxysmal atrial fibrillation with [id number] score of 6, but not an appropriate candidate for A/C due to risk of fall and GI bleeding risk. Continue DVT prophylaxis. ASA or Plavix can be used in not contraindicated 4. Complete antibiotic course, O2 and bronchodilator as needed and aspiration precaution Migue Bain MD
== END 2017-01-29 11:08 | DRG 689 ==
LOC: JER 13:33 → UNDOADMOB 16:01 → INTOOBSV 16:01 → JERBED 16:01 → J4W 22:42 → JERBED 22:42 → OBSVTOIN 01-19 13:47 → J4W 01-19 19:24 → J6S 01-19 19:24 → J4W 01-20 13:37 → J6S 01-20 13:37 → J4W 01-20 13:37
PROVIDERS: ADMIT Internal Medicine; ATTEND Internal Medicine
DX: N39.0 Urinary tract infection, site not specified (principal); I50.33 Acute on chronic diastolic (congestive) heart failure; J69.0 Pneumonitis due to inhalation of food and vomit; I13.0 Hypertensive heart and chronic kidney disease with heart failure and stage 1 through stage 4 chronic kidney disease, or unspecified chronic kidney disease; K62.5 Hemorrhage of anus and rectum; N82.8 Other female genital tract fistulae; B37.0 Candidal stomatitis; R55 Syncope and collapse; F03.90 Unspecified dementia, unspecified severity, without behavioral disturbance, psychotic disturbance, mood disturbance, and anxiety; F20.9 Schizophrenia, unspecified; F31.9 Bipolar disorder, unspecified; Z79.01 Long term (current) use of anticoagulants; E78.5 Hyperlipidemia, unspecified; J44.9 Chronic obstructive pulmonary disease, unspecified; D64.9 Anemia, unspecified; Z87.891 Personal history of nicotine dependence; Z99.81 Dependence on supplemental oxygen; I25.10 Atherosclerotic heart disease of native coronary artery without angina pectoris; Z95.1 Presence of aortocoronary bypass graft; I12.9 Hypertensive chronic kidney disease with stage 1 through stage 4 chronic kidney disease, or unspecified chronic kidney disease; N18.9 Chronic kidney disease, unspecified; I48.0 Paroxysmal atrial fibrillation; I95.9 Hypotension, unspecified; B96.20 Unspecified Escherichia coli [E. coli] as the cause of diseases classified elsewhere; Z66 Do not resuscitate; R62.7 Adult failure to thrive
CPT/HCPCS: 36415; 70450-TC; 71010-TC; 74230-TC; 80048; 80053; 80061; 80162; 81003; 81015; 82607; 82746; 82803; 83605; 83721; 83735; 84100; 84443; 84484; 85025; 85610; 85730; 86850; 86900; 86901; 87040; 87086; 87186; 92611-GN; 93005; 93010; 93306-TC; 93880-TC; 97116-GP; 97161-GP; 99285-25; G0378